=== PATIENT | female | born 1935 | race Caucasian/White ===

== ENCOUNTER 2018-05-04 19:49 | Inpatient (IN) | payer MEDICARE ==
[2018-05-04] MEDS ORDERED: NA CHLORIDE 0.9% 500 ML ONE (20:43)
[2018-05-04] MEDS ORDERED: ONDANSETRON 4 MG/2 ML VIAL ONE ×2 (20:43→22:31)
[2018-05-04 20:53] LABS: Absolute Lymphocytes (CBC) 0.7 K/uL (0.7-4.9); Absolute Monocytes 0.7 K/uL (0.1-1.3); Absolute Neutrophil 12.6 K/uL (1.8-8.0); Basophils % 0.2 % (0-1.3); Eosinophils % 0.4 % (0-4.4); Hematocrit 41.2 % (36.0-45.0); Lymphocytes % 5.2 % (15.3-44.8); MPV 9.2 fL (7.6-11.3); Monocytes % 4.8 % (3.3-12.3); RBC Red Blood Cell Count 5.16 M/uL (3.86-4.86)
[2018-05-04 21:09] LABS: Albumin 4.2 g/dL (3.4-5.0); Bilirubin Direct 0.3 mg/dL (0-0.2); Bilirubin Total 0.4 mg/dL (0.2-1.0); Potassium 5.2 mmol/L (3.5-5.1)
[2018-05-04 21:47] LABS: Blood Morphology Comment NOT SEEN (NOT SEEN); Platelet Estimate ADEQ; Platelets, Giant PRESENT
--- NOTE | 2018-05-04 23:31 | ER ---
Nurse's Notes [facility] Name: Eliana Hayden Age: 82 yrs Sex: Female : 1935 Arrival Date: 05/04/2018 Time: 19:51 Bed 4 Private MD: Mayra Frost C Diagnosis: Dehydration;Infectious ilieitis;Diarrhea, unspecified Presentation: 05/04 20:15 Presenting complaint: Patient states: Diarrhea since 1600 today after eating coleslaw lp1 and cornbread; Patient states hx of "colon problems"; Continued cramping and nausea. Transition of care: patient was not received from another setting of care. Onset of symptoms was May 04, 2018 at 16:00. Risk Assessment: Do you want to hurt yourself or someone else? Patient reports no desire to harm self or others. Initial Sepsis Screen: Does the patient meet any 2 criteria? No. Patient's initial sepsis screen is negative. Does the patient have a suspected source of infection? No. Patient's initial sepsis screen is negative. Care prior to arrival: None. 20:15 Method Of Arrival: Wheelchair lp1 20:15 Acuity: JANINA 3 lp1 Historical: - Allergies: 20:14 Codeine; lp1 20:14 meperidine HCl; lp1 20:14 zolpidem tartrate; lp1 20:14 atorvastatin calcium; lp1 - Home Meds: 05/05 00:44 amlodipine oral [Active]; Atenolol Oral [Active]; diazepam 2 mg Oral tab 1 tab daily hs lp1 [Active]; fenofibrate 160 mg Oral tab once daily [Active]; gabapentin 600 mg Oral tab 4 x a day [Active]; Glimepiride Oral [Active]; hydrocodone-acetaminophen 10-325 mg/15 mL(15 mL) Oral soln every 6 hours for Pain [Active]; levothyroxine 75 mcg tab once daily [Active]; metformin 500 mg Oral tab 1 tab 2 times per day [Active]; Omeprazole Oral [Active]; sertraline 100 mg Oral tab once daily [Active]; temazepam Oral [Active]; calcium carbonate 600 mg (1,500 mg) Oral tab 1200 mg daily [Active]; - PMHx: 05/04 20:14 Depression; Diabetes - NIDDM; High Cholesterol; Hypertension; Hypothyroidism; UTI; lp1 - Immunization history:: Adult Immunizations up to date. - Social history:: Smoking status: Patient/guardian denies using tobacco. - Ebola Screening: : No symptoms or risks identified at this time. - Family history:: not pertinent. - Hospitalizations: : No recent hospitalization is reported. Screenin:16 Abuse screen: Denies threats or abuse. Denies injuries from another. Nutritional lp1 screening: No deficits noted. Tuberculosis screening: No symptoms or risk factors identified. Fall Risk Total Gama Fall Scale indicates High Risk Score (45 or more points). Fall prevention measures have been instituted. Side Rails Up X 2 As available patient and family educated on Fall Prevention Program and Strategies. Assessment: 20:15 General: Appears uncomfortable, Behavior is appropriate for age. Pain: Complains of lp1 pain in abdomen Quality of pain is described as crampy. Neuro: Level of Consciousness is awake, alert, obeys commands. Cardiovascular: Patient's skin is warm and dry. Respiratory: Respiratory effort is even, Respiratory pattern is regular, Breath sounds are clear bilaterally. GI: Abdomen is distended, Bowel sounds present X 4 quads. Reports bloating, diarrhea, nausea. : No signs and/or symptoms were reported regarding the genitourinary system. EENT: No signs and/or symptoms were reported regarding the EENT system. Derm: Skin is fragile, is thin, Skin is dry, Skin is normal. Musculoskeletal: Circulation, motion, and sensation intact. 20:30 Reassessment: CT notified of patient completing oral contrast. lp1 21:30 Reassessment: Patient assisted to bsc; Large loose BM noted. lp1 22:15 Reassessment: Patient returned from CT; Notified of nausea, Provider notified. lp1 23:30 Reassessment: Patient appears in no apparent distress at this time. Patient and/or lp1 family updated on plan of care and expected duration. Pain level reassessed. Patient aware of pending admission. 05/05 00:45 Reassessment: Assisted patient to bathroom at this time. lp1 Vital Signs: 05/04 20:14 BP 121 / 75; Pulse 70; Resp 18; Temp 98.4(O); Pulse Ox 97% on R/A; Weight 72.57 kg; lp1 Height 5 ft. 3 in. (160.02 cm); 21:00 BP 151 / 47; Pulse 72; Resp 18; Pulse Ox 96% on R/A; lp1 22:15 BP 181 / 65; Pulse 74; Resp 16; Pulse Ox 94% on R/A; lp1 23:45 BP 147 / 52; Pulse 63; Resp 18; Pulse Ox 97% ; ea 05/05 00:23 BP 117 / 68; Pulse 66; Resp 18; Temp 97.8(O); Pulse Ox 94% on R/A; Pain 0/10; lp1 05/04 20:14 Body Mass Index 28.34 (72.57 kg, 160.02 cm) lp1 ED Course: 05/04 19:51 Patient arrived in ED. am2 19:51 Mayra Frost MD is Private Physician. am2 19:58 Leonid James MD is Attending Physician. rn 20:10 Shonda Morales RN is Primary Nurse. lp1 20:15 Arm band placed on. lp1 20:16 Triage completed. lp1 20:16 Patient has correct armband on for positive identification. Placed in gown. Bed in low lp1 position. Pulse ox on. NIBP on. 20:25 Oral contrast given. ml 20:50 Inserted saline lock: 22 gauge in left forearm, using aseptic technique. Blood ea collected. 20:51 Missed attempt(s): 22 gauge in right antecubital area. Bleeding controlled, band aid ag4 applied, catheter tip intact. 22:[address] vm2 22:08 CT completed. Patient moved back from CT. vm2 22:16 No provider procedures requiring assistance completed. lp1 22:24 Abdomen In Process Unspecified. EDMS 23:29 Mayra Frost MD is Hospitalizing Provider. rn 05/05 00:24 Patient admitted, IV remains in place. lp1 Administered Medications: 05/04 20:50 Drug: NS 0.9% 500 ml Route: IV; Rate: bolus; Site: left forearm; ea 22:26 Follow up: IV Status: Completed infusion; IV Intake: 500ml lp1 20:50 Drug: Zofran 4 mg Route: IVP; Site: left forearm; ea 21:30 Follow up: Response: Nausea is decreased lp1 22:25 Drug: Zofran 4 mg Route: IVP; Site: left forearm; lp1 23:00 Follow up: Response: Marked relief of symptoms; Nausea is decreased lp1 23:55 Drug: Cipro 400 mg Volume: 200 ml; Route: IVPB; Infused Over: 60 mins; Site: left lp1 forearm; 05/05 00:49 Follow up: IV Status: Infusion continued upon admission lp1 00:22 Drug: Flagyl 500 mg Volume: 100 ml; Route: IVPB; Rate: 200 ml/hr; Infused Over: 30 lp1 mins; Site: left forearm; 00:50 Follow up: IV Status: Infusion continued upon admission lp1 Intake: 05/04 22:26 IV: 500ml; Total: 500ml. lp1 Outcome: 23:30 Decision to Hospitalize by Provider. rn 05/05 00:23 Condition: stable lp1 Instructed on the need for admit. 00:48 Admitted to Med/surg via wheelchair, room 214, with chart, Report called to seamus Brandt RN 01:00 Patient left the ED. lp1 Signatures: Dispatcher [employer] EDFranchesca Odonnell Roman, MD MD rn Pena, Laura, RN RN lp1 Jania Bourne Victoria vm2 Kathy Mayorga RN RN ea Guzman, Adan ag4 Corrections: (The following items were deleted from the chart) 01:20 01:20 Patient left the ED. lp1 lp1
--- NOTE | 2018-05-04 23:31 | EDPHYS ---
Physician Documentation [facility] Name: Eliana Hayden Age: 82 yrs Sex: Female : 1935 Arrival Date: 05/04/2018 Time: 19:51 Bed 4 Private MD: Mayra Frost C ED Physician Leonid James HPI: 05/04 20:45 This 82 yrs old Female presents to ER via Wheelchair with complaints of rn Diarrhea. 20:45 The patient presents to the emergency department with nausea, diarrhea. Onset: The rn symptoms/episode began/occurred today. Possible causes: unknown. The symptoms are aggravated by nothing. The symptoms are alleviated by nothing. Severity of symptoms: At their worst the symptoms were moderate in the emergency department the symptoms are unchanged. The patient has experienced similar episodes in the past. The patient has not recently seen a physician. Reports nausea, diarrhea, began earlier today, can' stop having bowel movements, now having lightheaded and dizzy spells, no abd pain, not sure if because she ate spicy stuff for lunch. . Historical: - Allergies: 20:14 Codeine; lp1 20:14 meperidine HCl; lp1 20:14 zolpidem tartrate; lp1 20:14 atorvastatin calcium; lp1 - Home Meds: 05/05 00:44 amlodipine oral [Active]; Atenolol Oral [Active]; diazepam 2 mg Oral tab 1 tab daily hs lp1 [Active]; fenofibrate 160 mg Oral tab once daily [Active]; gabapentin 600 mg Oral tab 4 x a day [Active]; Glimepiride Oral [Active]; hydrocodone-acetaminophen 10-325 mg/15 mL(15 mL) Oral soln every 6 hours for Pain [Active]; levothyroxine 75 mcg tab once daily [Active]; metformin 500 mg Oral tab 1 tab 2 times per day [Active]; Omeprazole Oral [Active]; sertraline 100 mg Oral tab once daily [Active]; temazepam Oral [Active]; calcium carbonate 600 mg (1,500 mg) Oral tab 1200 mg daily [Active]; - PMHx: 05/04 20:14 Depression; Diabetes - NIDDM; High Cholesterol; Hypertension; Hypothyroidism; UTI; lp1 - Immunization history:: Adult Immunizations up to date. - Social history:: Smoking status: Patient/guardian denies using tobacco. - Ebola Screening: : No symptoms or risks identified at this time. - Family history:: not pertinent. - Hospitalizations: : No recent hospitalization is reported. ROS: 20:45 Constitutional: Negative for fever, chills, and weight loss, Eyes: Negative for injury, rn pain, redness, and discharge, Neck: Negative for injury, pain, and swelling, Cardiovascular: Negative for chest pain, palpitations, and edema, Respiratory: Negative for shortness of breath, cough, wheezing, and pleuritic chest pain, Abdomen/GI: + nausea and diarrhea MS/Extremity: Negative for injury and deformity, Skin: Negative for injury, rash, and discoloration, Neuro: + generalized weakness Exam: 20:45 Constitutional: This is a well developed, well nourished patient who is awake, alert, rn and in no acute distress. Head/Face: Normocephalic, atraumatic. Eyes: Pupils equal round and reactive to light, extra-ocular motions intact. Lids and lashes normal. Conjunctiva and sclera are non-icteric and not injected. Cornea within normal limits. Periorbital areas with no swelling, redness, or edema. ENT: dry MM Cardiovascular: Regular rate and rhythm. No pulse deficits. Respiratory: Lungs have equal breath sounds bilaterally, clear to auscultation. No increased work of breathing, no retractions or nasal flaring. Abdomen/GI: soft, non-tender Skin: Warm, dry MS/ Extremity: Pulses equal, no cyanosis. Neurovascular intact. Full, normal range of motion. Equal circumference. Neuro: Awake and alert, GCS 15, oriented to person, place, time, and situation. Cranial nerves II-XII grossly intact. Motor strength 5/5 in all extremities. Sensory grossly intact. Vital Signs: 20:14 BP 121 / 75; Pulse 70; Resp 18; Temp 98.4(O); Pulse Ox 97% on R/A; Weight 72.57 kg; lp1 Height 5 ft. 3 in. (160.02 cm); 21:00 BP 151 / 47; Pulse 72; Resp 18; Pulse Ox 96% on R/A; lp1 22:15 BP 181 / 65; Pulse 74; Resp 16; Pulse Ox 94% on R/A; lp1 23:45 BP 147 / 52; Pulse 63; Resp 18; Pulse Ox 97% ; ea 05/05 00:23 BP 117 / 68; Pulse 66; Resp 18; Temp 97.8(O); Pulse Ox 94% on R/A; Pain 0/10; lp1 05/04 20:14 Body Mass Index 28.34 (72.57 kg, 160.02 cm) lp1 MDM: 05/04 19:58 Patient medically screened. rn 23:29 Differential diagnosis: gastritis, diverticulitis, viral gastroenteritis, rn gastroenteritis, cholitis. Data reviewed: vital signs, nurses notes, lab test result(s), radiologic studies, CT scan, and as a result, I will admit patient. Counseling: I had a detailed discussion with the patient and/or guardian regarding: the historical points, exam findings, and any diagnostic results supporting the discharge/admit diagnosis, lab results, radiology results, the need for further work-up and treatment in the hospital. Response to treatment: the patient's symptoms have mildly improved after treatment, and as a result, I will admit patient. Admission orders: after a detailed discussion of the patient's condition and case, the admit orders are written by me. 05/04 20:15 Order name: Basic Metabolic Panel; Complete Time: 21:35 rn 05/04 20:15 Order name: CBC with Diff rn 05/04 20:15 Order name: Hepatic Function; Complete Time: 21:35 rn 05/04 20:15 Order name: Lipase; Complete Time: 21:35 05/04 20:15 Order name: Blood Culture Adult (2) rn 05/04 20:15 Order name: Stool Culture rn 05/04 20:16 Order name: Urine Culture rn 05/04 20:16 Order name: Urine Microscopic Only rn 05/04 21:04 Order name: Manual Differential EDMS 05/04 21:45 Order name: Abdomen EDMS 05/04 20:15 Order name: IV Saline Lock; Complete Time: 21:09 rn 05/04 20:15 Order name: Labs collected and sent; Complete Time: 20:59 rn Administered Medications: 20:50 Drug: NS 0.9% 500 ml Route: IV; Rate: bolus; Site: left forearm; ea 22:26 Follow up: IV Status: Completed infusion; IV Intake: 500ml [facility] 20:50 Drug: Zofran 4 mg Route: IVP; Site: left forearm; ea 21:30 Follow up: Response: Nausea is decreased lp1 22:25 Drug: Zofran 4 mg Route: IVP; Site: left forearm; lp1 23:00 Follow up: Response: Marked relief of symptoms; Nausea is decreased lp1 23:55 Drug: Cipro 400 mg Volume: 200 ml; Route: IVPB; Infused Over: 60 mins; Site: left lp1 forearm; 05/05 00:49 Follow up: IV Status: Infusion continued upon admission lp1 00:22 Drug: Flagyl 500 mg Volume: 100 ml; Route: IVPB; Rate: 200 ml/hr; Infused Over: 30 lp1 mins; Site: left forearm; 00:50 Follow up: IV Status: Infusion continued upon admission lp1 Disposition: 05/04/18 23:30 Hospitalization ordered by Mayra Frost for Inpatient Admission. Preliminary diagnosis are Dehydration, Infectious ilieitis, Diarrhea, unspecified. - Bed requested for Telemetry/MedSurg (Inpatient). - Status is Inpatient Admission. lp1 - Condition is Stable. - Problem is new. - Symptoms have improved. UTI on Admission? No Signatures: Dispatcher [employer] EDRI Leonid James MD MD rn Pena, Laura, RN RN [facility] Liseth Cox RN RN Kathy Mayorga RN RN ea Corrections: (The following items were deleted from the chart) 05/04 21:45 20:16 Abdomen Pelvis W Con+CT.RAD.BRZ ordered. EDRI EDRI 23:57 23:30 Hospitalization Ordered by A Margot SIERRA for Inpatient Admission. Preliminary cg diagnosis is Dehydration; Infectious ilieitis; Diarrhea, unspecified. Bed requested for Telemetry/MedSurg (Inpatient). Status is Inpatient Admission. Condition is Stable. Problem is new. Symptoms have improved. UTI on Admission? No. rn 05/05 01:20 05/04 23:57 05/04/2018 23:30 Hospitalization Ordered by A Margot SIERRA for Inpatient lp1 Admission. Preliminary diagnosis is Dehydration; Infectious ilieitis; Diarrhea, unspecified. Bed requested for Telemetry/MedSurg (Inpatient). Status is Inpatient Admission. Condition is Stable. Problem is new. Symptoms have improved. UTI on Admission? No. cg
[2018-05-04] MEDS ORDERED: METRONIDAZOLE 500mg IVPB 500 MG/100 ML BAG IV ONE (23:39)
[2018-05-04] MEDS ORDERED: CIPROFLOXACIN 400mg IV 400 MG/200 ML BAG IV ONE (23:39)
[2018-05-05] MEDS ORDERED: ONDANSETRON 4 MG/2 ML VIAL IV PRN (00:53)
[2018-05-05 01:43] VITALS: BMI 28.0
[2018-05-05] MEDS: NA CHLORIDE 0.9% 1,000 ML IV SCH ×3 (01:55→22:06)
[2018-05-05] MEDS: METRONIDAZOLE 500mg IVPB 500 MG/100 ML BAG IV SCH ×4 (05:13→23:25)
[2018-05-05 06:10] LABS: Urine Appearance CLEAR; Urine Bilirubin NEGATIVE (NEG); Urine Blood 1+ (NEG); Urine Color YELLOW; Urine Glucose NEGATIVE (NEG); Urine Protein NEGATIVE (NEG); Urine Urobilinogen 0.2 mg/dL (0.2-1.0)
[2018-05-05 06:19] LABS: Urine Microscopic Reflex ORDER UMIC
[2018-05-05 06:30] LABS: Urine Bacteria <20 /HPF (<20); Urine Culture Reflex Order REFLEXED; Urine RBC <5 /HPF (NONE SEEN)
[2018-05-05 06:34] LABS: Absolute Lymphocytes (CBC) 1.1 K/uL (0.7-4.9); Absolute Monocytes 0.5 K/uL (0.1-1.3); Absolute Neutrophil 4.9 K/uL (1.8-8.0); Basophils % 0.3 % (0-1.3); Eosinophils % 1.7 % (0-4.4); Hematocrit 36.6 % (36.0-45.0); Lymphocytes % 16.8 % (15.3-44.8); MPV 9.2 fL (7.6-11.3); Monocytes % 7.8 % (3.3-12.3); RBC Red Blood Cell Count 4.56 M/uL (3.86-4.86)
[2018-05-05] MEDS ORDERED: D50W 25 GM/50 ML SYRINGE IV PRN (06:50)
[2018-05-05] MEDS ORDERED: GLUCAGON 1 MG/VIAL IM PRN (06:50)
[2018-05-05] MEDS ORDERED: TRAMADOL HCL 50 MG TAB PO PRN (06:52)
[2018-05-05 06:53] LABS: Potassium 4.5 mmol/L (3.5-5.1)
[2018-05-05] MEDS: INSULIN -REGULAR HUMAN 50 UNIT/0.5 ML ML SQ SCH ×4 (07:30→21:00)
[2018-05-05] MEDS ORDERED: AMLODIPINE BESYLATE PO SCH (09:00)
[2018-05-05] MEDS ORDERED: BENAZEPRIL PO SCH (09:00)
[2018-05-05] MEDS: LEVOTHYROXINE SOD 0.075 MG TAB PO SCH (09:02)
[2018-05-05] MEDS: CIPROFLOXACIN 400mg IV 400 MG/200 ML BAG IV SCH ×2 (09:02→20:51)
[2018-05-05] MEDS: BENAZEPRIL 20 MG TAB PO SCH (09:04)
[2018-05-05] MEDS: AMLODIPINE 5 MG TAB PO SCH (09:04)
[2018-05-05] MEDS: VITAMIN B COMPLEX 1 CAP PO SCH (09:04)
[2018-05-05] MEDS: GABAPENTIN 400 MG CAP PO SCH ×4 (09:04→20:50)
[2018-05-05] MEDS: MAGNESIUM OXIDE 400 MG TAB PO SCH (09:04)
[2018-05-05] MEDS: ATENOLOL 50 MG TAB PO SCH (09:05)
[2018-05-05] MEDS: SITAGLIPTIN PHOS 100 MG TAB PO SCH (09:05)
[2018-05-05] MEDS: ENOXAPARIN 30 MG/0.3 ML SQ SCH (09:05)
[2018-05-05] MEDS: FENOFIBRATE 160 MG TAB PO SCH (09:09)
--- NOTE | 2018-05-05 12:38 | RAD REPORT ---
EXAM DESCRIPTION: CT Abdomen and Pelvis Without Intravenous Contrast CLINICAL HISTORY: 82 years old and is Female; diarrhea TECHNIQUE: Axial computed tomography images of the abdomen and pelvis without intravenous contrast. Sagittal and coronal reformatted images were created and reviewed. EXAM COMPLETED DATE AND APPROX . TIME: 05/04/2018 10:[address] exam was performed using one or more of the following dose re duction techniques: automated exposure control, adjustment of the mA and/or kV according to patient size, and/or use of iterative reconstruction technique. COMPARISON: No relevant prior studies available. FINDINGS: Limitations: None. Dense mitral calcification noted. Lung bases: Unremarkable. No mass. No consolidation. ABDOMEN: Liver: Probable fatty liver. Gallbladder and bile ducts: Cholecystectomy. No ductal dilation. Pancreas: Unremarkable. No ductal dilation. Spleen: Unremarkable. No splenomegaly. Adrenals: Unremarkable. No mass. Kidneys and ureters: There is cortical scarring of both kidneys right greater than left. Fluid d ensity benign-appearing approximately 3 cm diameter cyst noted in the left mid pole. No further evalu ation consider necessary. No stones. No hydronephrosis. Stomach and bowel: There is an approximately 3.3 x 3.0 x 3.8 cm diverticulum in the duodenal loo p. There are a couple of loops of distal ileum which appear mildly thickened and inflamed. The termin al ileum is spared. There is scattered colonic stool without distention. PELVIS: Appendix: No findings to suggest acute appendicitis. Bladder: Unremarkable. No stones. Reproductive: Hysterectomy. ABDOMEN and PELVIS: Intraperitoneal space: Unremarkable. No free air. No significant fluid collection. Bones/joints: There is diffuse degenerative change throughout the spine moderate to severe in de gree with canal stenosis and degenerative grade 1 anterolisthesis at L4-L5. No acute fracture. No dislocation. Soft tissues: Unremarkable. Vasculature: There is atherosclerosis of the aorta and branches. The aorta is tortuous. No aorti c aneurysm. 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 No hemorrhage. Lymph nodes: Unremarkable. No enlarged lymph nodes. IMPRESSION: 1. Suspect mild distal ileitis without involvement of the terminal ileum. Consider inf ectious causes. 2. There is an approximately 9 mm densely calcified splenic artery aneurysm in the splenic hilum. ACR White Paper guidelines (Ahsan, et al. JACR 2013; 10(10):789-94) suggest annual abdominal CT or MR follow-up. No hemorrhage. Electronically signed by: Lara Navarro MD 05/04/2018 10:38 PM CDT Due to temporary technical issues with the PACS/Fluency reporting system, reports are being signed by the in house radiologist as a courtesy to ensure prompt reporting. The interpreting radiologist is f ully responsible for the content of the report.
[2018-05-05] MEDS: SERTRALINE HCL 100 MG TAB PO SCH (20:50)
--- NOTE | 2018-05-06 05:19 | HP ---
Date of Admission: 05/05/2018 Chief Complaint: Abdominal pain, nausea, diarrhea. History Of Present Illness: This is an 82-year-old female patient who was doing fine in her normal usual state of health until around 4 p.m. yesterday. She started to have abdominal pain, describing more like cramps, some nausea with it, and multiple episodes of diarrhea. She started to feel very weak with all these complaints, and came into emergency room. After she was evaluated, she was admitted to the hospital. She denies any blood in stool. No hematemesis. No recent travel. No recent antibiotic use. Medications: List reviewed. Allergies: CODEINE, LIPITOR, DEMEROL, AMBIEN. Review of Systems: GI: As mentioned above. Constitutional: As mentioned above. All other systems reviewed and negative. Past Medical History: Significant for hypertension, hyperlipidemia, NIDDM, hypothyroidism, diverticulosis, osteoarthritis, anemia, depression, gastroesophageal reflux disease, insomnia, diabetic neuropathy. Past Surgical History: Bladder suspension, appendectomy, cataract surgery, cholecystectomy, hysterectomy, and tarsal tunnel surgery. Social History: Negative for smoking or alcohol use. Family History: Significant for coronary artery disease and diabetes. Physical Examination: Vital Signs: Temperature is 97.8, pulse 62, respiratory rate 20, blood pressure 143/63, oxygen saturation 94%, height 5 feet 3 inches, weight 158 pounds. General: Awake, alert, oriented, not in distress. HEENT: Head atraumatic, normocephalic. Conjunctivae nonerythematous. Sclerae white. Mouth, no thrush or edema noted. Ears/Nose, no mass, lesion, discharge noted. Neck: Supple. No JVD, lymph nodes, bruit, thyromegaly noted. Lungs: Bilateral good equal air entry. Clear to auscultation. No rhonchi. No rales. Heart: Normal heart sounds, no murmur or gallop. Abdomen: Soft. No distention. No guarding or rigidity. Very mild diffuse vague tenderness. No rebound tenderness. No hepatosplenomegaly. No bruit. Bowel sounds normoactive. Extremities: No leg edema. No calf tenderness. Skin: No rash, ulcer, cellulitis. Lymphatics: No lymph node enlargement in neck, supraclavicular, infraclavicular region. Neuro: No focal neurological deficit. Chest: Unremarkable. External Genitalia: Deferred. Rectal: Deferred. Laboratory Data: White count yesterday 14.1, hemoglobin 13.3, platelets 218. This morning white count 6.6, hemoglobin 11.9, platelets 195. Yesterday, sodium 138, potassium 5.2, chloride 105, bicarb 25, BUN 36, creatinine 1.61, glucose 175. Liver function tests unremarkable. Lipase 109. Urinalysis; 2+ esterase, 5-10 wbc's. CAT scan of the abdomen and pelvis done in the emergency room shows changes of ileitis. Impression: 1. Acute gastroenteritis, infectious. 2. Volume depletion. 3. Acute kidney injury. 4. Hypertension. 5. Mixed hyperlipidemia. 6. Type 2 diabetes mellitus with diabetic neuropathy. 7. Gastroesophageal reflux disease. 8. Depression. 9. Osteoarthritis, multiple sites. 10. Anemia. 11. Diverticulosis. 12. Hypothyroidism. 13. Urinary tract infection. Plan: Admit the patient to hospital for further evaluation and management of this problem. The patient is appropriate for inpatient, and is expected to spend 2 midnights in the hospital. We will continue her home medications per order. Diabetes will be managed with medication per order as well as insulin sliding-scale. We will go ahead and give DVT prophylaxis using Lovenox. IV fluid and IV antibiotics will be given per order, and we will go ahead and follow up on urine culture. Depending on the urine culture result, we will decide about culture-specific antibiotics. Ambulation was advised. Consult Physical Therapy to help ambulate the patient, and I will see her tomorrow for followup. We will monitor electrolytes, renal function, and blood count. MECCA/MODL Voice ID: [id number] RK
[2018-05-06] MEDS: METRONIDAZOLE 500mg IVPB 500 MG/100 ML BAG IV SCH ×3 (05:34→17:50)
[2018-05-06] MEDS: PANTOPRAZOLE 40MG TABLET PO SCH (05:34)
[2018-05-06] MEDS: LEVOTHYROXINE SOD 0.075 MG TAB PO SCH (05:35)
[2018-05-06] MEDS: NA CHLORIDE 0.9% 1,000 ML IV SCH ×2 (06:53→15:53)
[2018-05-06] MEDS: INSULIN -REGULAR HUMAN 50 UNIT/0.5 ML ML SQ SCH ×4 (07:30→20:40)
[2018-05-06] MEDS: CIPROFLOXACIN 400mg IV 400 MG/200 ML BAG IV SCH ×2 (10:37→20:39)
[2018-05-06] MEDS ORDERED: ALPRAZOLAM 0.25 MG TABLET PO PRN (10:37)
[2018-05-06] MEDS: VITAMIN B COMPLEX 1 CAP PO SCH (10:38)
[2018-05-06] MEDS: FENOFIBRATE 160 MG TAB PO SCH (10:38)
[2018-05-06] MEDS: AMLODIPINE 5 MG TAB PO SCH (10:38)
[2018-05-06] MEDS: GABAPENTIN 400 MG CAP PO SCH ×4 (10:39→20:38)
[2018-05-06] MEDS: BENAZEPRIL 20 MG TAB PO SCH (10:39)
[2018-05-06] MEDS: MAGNESIUM OXIDE 400 MG TAB PO SCH (10:39)
[2018-05-06] MEDS: SITAGLIPTIN PHOS 100 MG TAB PO SCH (10:39)
[2018-05-06] MEDS: ENOXAPARIN 30 MG/0.3 ML SQ SCH (10:40)
[2018-05-06] MEDS: ATENOLOL 50 MG TAB PO SCH (10:45)
--- NOTE | 2018-05-06 21:12 | PN ---
Date of Progress Note: 05/06/2018 Subjective: The patient was seen this morning for followup. No new complaints or problems reported by the patient, except she continues to have some diarrhea, nausea, and some abdominal discomfort. N o new problems reported, but she does not feel any better compared to yesterday, she said. Objective: Vital Signs: Reviewed. HEENT: Examination unremarkable. Lungs: Clear to auscultation. Heart: Sounds normal. Abdomen: Soft. Bowel sounds normal. No guarding, rigidity, no distention. Very vague minimum abdo angela tenderness diffusely scattered over abdomen mostly in lower abdomen today, and overall it is be tter today than yesterday. Extremities: No leg edema. Impression: 1.Acute gastroenteritis. 2.Hypertension. 3.Diabetes mellitus. Plan: We will go ahead and continue her current diet, antibiotics, home medications. Diabetes manag ement and blood pressure medications per order. I will see her tomorrow for followup. Possible disc harge to go home over the weekend depending on her condition. MECCA/MODL Voice ID: [id number] Report ID: [id number]
[2018-05-06] MEDS: SERTRALINE HCL 100 MG TAB PO SCH (22:40)
[2018-05-06] MEDS: MELATONIN 3 MG TABLET PO SCH (22:40)
[2018-05-07] MEDS: METRONIDAZOLE 500mg IVPB 500 MG/100 ML BAG IV SCH ×5 (00:08→23:07)
[2018-05-07] MEDS: LEVOTHYROXINE SOD 0.075 MG TAB PO SCH (05:52)
[2018-05-07] MEDS: NA CHLORIDE 0.9% 1,000 ML IV SCH (05:52)
[2018-05-07] MEDS: PANTOPRAZOLE 40MG TABLET PO SCH (05:52)
[2018-05-07 06:37] LABS: Absolute Lymphocytes (CBC) 1.3 K/uL (0.7-4.9); Absolute Monocytes 0.5 K/uL (0.1-1.3); Absolute Neutrophil 3.6 K/uL (1.8-8.0); Basophils % 0.4 % (0-1.3); Eosinophils % 1.9 % (0-4.4); Hematocrit 36.2 % (36.0-45.0); Lymphocytes % 22.9 % (15.3-44.8); MPV 8.8 fL (7.6-11.3); Monocytes % 9.7 % (3.3-12.3); RBC Red Blood Cell Count 4.55 M/uL (3.86-4.86)
[2018-05-07 06:42] LABS: Magnesium 1.6 mg/dL (1.8-2.4); Potassium 4.2 mmol/L (3.5-5.1)
[2018-05-07] MEDS: INSULIN -REGULAR HUMAN 50 UNIT/0.5 ML ML SQ SCH ×4 (07:30→21:00)
[2018-05-07] MEDS: MAGNESIUM OXIDE 400 MG TAB PO SCH (09:18)
[2018-05-07] MEDS: ENOXAPARIN 30 MG/0.3 ML SQ SCH (09:18)
[2018-05-07] MEDS: GABAPENTIN 400 MG CAP PO SCH ×4 (09:18→21:34)
[2018-05-07] MEDS: CIPROFLOXACIN 400mg IV 400 MG/200 ML BAG IV SCH ×2 (09:18→21:34)
[2018-05-07] MEDS: SITAGLIPTIN PHOS 100 MG TAB PO SCH (09:19)
[2018-05-07] MEDS: VITAMIN B COMPLEX 1 CAP PO SCH (09:19)
[2018-05-07] MEDS: AMLODIPINE 5 MG TAB PO SCH (09:19)
[2018-05-07] MEDS: ATENOLOL 50 MG TAB PO SCH (09:19)
[2018-05-07] MEDS: FENOFIBRATE 160 MG TAB PO SCH (09:19)
[2018-05-07] MEDS: BENAZEPRIL 20 MG TAB PO SCH (09:34)
--- NOTE | 2018-05-07 09:40 | EKG ---
Test Date: 2018-05-06 Test Time: 19:41:11 Director Of Social Services: RT MEASUREMENT RESULTS: Intervals: Rate: 61 LA: QRSD: 150 QT: 482 QTc: 485 [place]: P: LA: QRS: -46 T: 76 INTERPRETIVE STATEMENTS: Atrial fibrillation Left axis deviation Left bundle branch block Abnormal ECG Compared to ECG 04/24/2015 08:09:43 Left-axis deviation now present Left bundle-branch block now present Sinus rhythm no longer present Electronically Signed On 05-07-18 09:39:54 CDT by Manuel Ceja
[2018-05-07] MEDS ORDERED: FUROSEMIDE 20 MG/ 2ML VIAL IV ONE (12:39)
[2018-05-07] MEDS ORDERED: MAGNESIUM SULFATE 1 gm IVPB 1 GM/100 ML BAG IV ONE (14:00)
--- NOTE | 2018-05-07 17:40 | PN ---
Date of Progress Note: 05/07/2018 Subjective: The patient was seen this morning for followup. She still continues to have diarrhea. Denies any vomiting. No abdominal pain. Objective: Vital signs: Reviewed. HEENT: Unremarkable. Lungs: Bilateral good equal air entry. Presence of rales noted in lower half of both lung bowen. Heart: Sounds normal. Abdomen: Soft. Bowel sounds normal. No guarding, rigidity, tenderness, or distention. Extremities: Bilateral grade 1 pedal edema. Laboratory Data: White count 5.5, hemoglobin 11.7, platelets 195. Sodium 142, potassium 4.2, chlori de 112, bicarb 24, BUN 18, creatinine 0.96, glucose 136, magnesium 1.6. EKG from last night had show n atrial fibrillation. Currently, patient is in sinus rhythm when I saw her. Impression: 1.Acute gastroenteritis. 2.Paroxysmal atrial fibrillation. 3.Hypertension. 4.Diabetes mellitus. 5.Hypomagnesemia. 6.Rule out congestive heart failure. Plan: We will go ahead and order stool for C. diff. Repeat EKG was ordered. When I saw her, she wa s in sinus rhythm. The patient has gone into anywhere from first-degree to second-degree AV block. We will consult Cardiology and give 1 dose of Lasix 20 mg IV. Increase the dose of Lovenox from prop hylactic to therapeutic dose. Consult Cardiology and continue current antibiotics. Details and plan of treatment discussed with the patient and her son, who was at bedside. Echocardiogram was ordered. MECCA/MODL Voice ID: [id number] Report ID: [id number]
--- NOTE | 2018-05-07 18:25 | CON ---
Reason For Consult: Second-degree AV block. History Of Present Illness: Ms. Hayden has been in the hospital for several days and on telemetry t he whole time, and she has been in the hospital for infection somewhere in the abdomen. I think it i s suspected that she has diverticulitis. She has not had any symptoms of arrhythmia. No dizziness, palpitations, heart racing, fainting, lightheadedness. Her first vital signs are from the , this the , and she has had 2 spells where she has dropped some beats. Her EKG shows sinus rhythm wit h a very long CO interval. It is in the range of 300 or 400 milliseconds, and there is a left bundle -branch block. So, I am sure anytime her heart rate goes up, she will block down. We have not seen atrial fibrillation or any pauses more than 3-1/2 seconds and no symptoms. The patient's medications here in the hospital have been alprazolam, amlodipine, atenolol, benazepril, Cipro, Lovenox, fenofib rate, metronidazole, furosemide, gabapentin, glucagon, insulin, levothyroxine, magnesium oxide, magne sium sulfate, melatonin, Zofran, Protonix, sitagliptin, sertraline, tramadol, vitamin B complex. She is allergic to codeine, atorvastatin, meperidine, zolpidem. Physical Examination: General: 5 feet 3 inches, 158 pounds. HEENT: Normal. Lungs: Clear. Heart: Within normal limits. Abdomen: Soft. Extremities: Mild edema. Recommendation: I think the patient should stop her atenolol. We should get a TSH on her. If any o f the problems get worse, we will send her for an emergency pacemaker, but I think when she is over h er abdominal infection, it would be good for her to get an electively placed pacemaker. 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 MARGOTH/LOGAN Voice ID: [id number] Report ID: [id number]
[2018-05-07] MEDS: ENOXAPARIN 80 MG/0.8 ML SQ SCH (21:34)
[2018-05-07] MEDS: SERTRALINE HCL 100 MG TAB PO SCH (21:34)
[2018-05-07] MEDS: MELATONIN 3 MG TABLET PO SCH (23:04)
[2018-05-08] MEDS: LEVOTHYROXINE SOD 0.075 MG TAB PO SCH (06:09)
[2018-05-08] MEDS: PANTOPRAZOLE 40MG TABLET PO SCH (06:09)
[2018-05-08] MEDS: METRONIDAZOLE 500mg IVPB 500 MG/100 ML BAG IV SCH ×4 (06:13→23:11)
[2018-05-08] MEDS: INSULIN -REGULAR HUMAN 50 UNIT/0.5 ML ML SQ SCH ×4 (07:30→20:57)
[2018-05-08] MEDS: CIPROFLOXACIN 400mg IV 400 MG/200 ML BAG IV SCH ×2 (09:33→20:55)
[2018-05-08] MEDS: ENOXAPARIN 80 MG/0.8 ML SQ SCH ×2 (09:34→20:55)
[2018-05-08] MEDS: BENAZEPRIL 20 MG TAB PO SCH (09:35)
[2018-05-08] MEDS: FENOFIBRATE 160 MG TAB PO SCH (09:36)
[2018-05-08] MEDS: MAGNESIUM OXIDE 400 MG TAB PO SCH (09:36)
[2018-05-08] MEDS: VITAMIN B COMPLEX 1 CAP PO SCH (09:36)
[2018-05-08] MEDS: GABAPENTIN 400 MG CAP PO SCH ×4 (09:36→20:55)
[2018-05-08] MEDS: SITAGLIPTIN PHOS 100 MG TAB PO SCH (09:36)
[2018-05-08] MEDS: AMLODIPINE 5 MG TAB PO SCH (09:36)
--- NOTE | 2018-05-08 15:48 | PN ---
Mrs. Hayden had a brief spell of AFib. The heart rate was not particularly slow, but when in sinus rhythm her p.r.n. interval is very prolonged, and she has the occasional dropped beat. So, I think s he needs to be fully anticoagulated and avoid beta-blockers. When her abdominal problem is better, s he should have a pacemaker as she has trifascicular block with some dropped beats. MARGOTH/LOGAN Voice ID: [id number] Report ID: [id number]
--- NOTE | 2018-05-08 20:21 | EKG ---
Test Date: 2018-05-07 Test Time: 13:18:40 [employer] Underwriter: MYRA MEASUREMENT RESULTS: Intervals: Rate: 62 IL: 400 QRSD: 134 QT: 486 QTc: 493 [place]: P: IL: 400 QRS: -42 T: 82 INTERPRETIVE STATEMENTS: Sinus rhythm with first degree AV block Left axis deviation Left bundle branch block Abnormal ECG Compared to ECG 05/06/2018 19:41: Atrial fibrillation no longer present Electronically Signed On 05-08-18 20:21:23 CDT by Manuel Ceja
[2018-05-08] MEDS: SERTRALINE HCL 100 MG TAB PO SCH (20:56)
[2018-05-08] MEDS: ACETAMINOPHEN 500 MG TAB PO PRN (21:17)
[2018-05-08] MEDS: MELATONIN 3 MG TABLET PO SCH (23:06)
[2018-05-09] MEDS: METRONIDAZOLE 500mg IVPB 500 MG/100 ML BAG IV SCH ×4 (05:44→23:57)
[2018-05-09] MEDS: PANTOPRAZOLE 40MG TABLET PO SCH (05:44)
[2018-05-09] MEDS: LEVOTHYROXINE SOD 0.075 MG TAB PO SCH (05:46)
[2018-05-09 06:27] LABS: Absolute Monocytes 0.7 K/uL (0.1-1.3); Absolute Neutrophil 4.2 K/uL (1.8-8.0); Basophils % 0.9 % (0-1.3); Eosinophils % 1.4 % (0-4.4); Hematocrit 32.7 % (36.0-45.0); MPV 9.5 fL (7.6-11.3); Monocytes % 11.7 % (3.3-12.3)
[2018-05-09 06:36] LABS: Magnesium 1.6 mg/dL (1.8-2.4); Potassium 4.1 mmol/L (3.5-5.1)
[2018-05-09] MEDS: INSULIN -REGULAR HUMAN 50 UNIT/0.5 ML ML SQ SCH ×4 (07:30→21:47)
[2018-05-09] MEDS ORDERED: MAGNESIUM SULFATE 1 gm IVPB 1 GM/100 ML BAG IV ONE (09:00)
[2018-05-09] MEDS: GABAPENTIN 400 MG CAP PO SCH ×4 (09:46→21:47)
[2018-05-09] MEDS: VITAMIN B COMPLEX 1 CAP PO SCH (09:46)
[2018-05-09] MEDS: PARoxetine HCl 10 MG TAB PO SCH (09:46)
[2018-05-09] MEDS: MAGNESIUM OXIDE 400 MG TAB PO SCH (09:47)
[2018-05-09] MEDS: AMLODIPINE 5 MG TAB PO SCH (09:47)
[2018-05-09] MEDS: BENAZEPRIL 20 MG TAB PO SCH (09:47)
[2018-05-09] MEDS: APIXABAN 5 MG TABLET PO SCH ×2 (09:47→21:47)
[2018-05-09] MEDS: SITAGLIPTIN PHOS 100 MG TAB PO SCH (09:47)
[2018-05-09] MEDS: CIPROFLOXACIN 400mg IV 400 MG/200 ML BAG IV SCH ×2 (09:48→21:47)
[2018-05-09] MEDS: FENOFIBRATE 160 MG TAB PO SCH (09:48)
--- NOTE | 2018-05-09 11:56 | ECHO ---
HEIGHT: 5 ft 3 in WEIGHT: 158 lb 11.2 oz DATE OF STUDY: 05/09/[address]: Gonzalo Frost MD 2-DIMENSIONAL: YES M.MODE: YES DOPPLER: YES COLOR FLOW: YES TDS: NO PORTABLE: NO DEFINITY: NO BUBBLE STUDY: NO DIAGNOSIS: CONGESTIVE HEART FAILURE CARDIAC HISTORY: CATHERIZATION: NO SURGERY: NO PROSTHETIC VALVE: NO PACEMAKER: NO MEASUREMENTS (cm) DIASTOLIC (NORMALS) SYSTOLIC (NORMALS) IVSd 1.0 (0.6-1.2) LA Diam 3.9 (1.9-4.0) LVEF 59% LVIDd 3.2 (3.5-5.7) LVIDs 2.2 (2.0-3.5) %FS 30% LVPWd 1.0 (0.6-1.2) Ao Diam 2.7 (2.0-3.7) 2 DIMENSIONAL ASSESSMENT: RIGHT ATRIUM: NORMAL LEFT ATRIUM: NORMAL RIGHT VENTRICLE: NORMAL LEFT VENTRICLE: NORMAL TRICUSPID VALVE: NORMAL MITRAL VALVE: MITRAL ANNULAR CALCIFICATION PULMONIC VALVE: NORMAL AORTIC VALVE: NORMAL PERICARDIAL EFFUSION: NONE AORTIC ROOT: NORMAL LEFT VENTRICULAR WALL MOTION: DOPPLER/COLOR FLOW: MILD MITRAL AND TRICUSPID REGURGITATION. ESTIMATED RIGHT VENTRICULAR SYSTOLIC PRESSURE 45 mmHg. MILD PULMONARY HYPERTENSION. COMMENTS: NORMAL LEFT VENTRICULAR EJECTION FRACTION. MITRAL ANNULAR CALCIFICATION. MILD MITRAL AND TRICUSPID REGURGITATION. MILD PULMONARY HYPERTENSION. TECHNOLOGIST: Rosa Maria AYERS
[2018-05-09] MEDS: LIDOCAINE 5% PATCH TOP SCH (12:07)
--- NOTE | 2018-05-09 12:37 | RAD REPORT ---
EXAM DESCRIPTION: RAD - Shoulder Left 2 View - 05/09/2018 12:28 pm CLINICAL HISTORY: L shoulder pain COMPARISON: Shoulder Left 2 View dated 06/05/2011 FINDINGS: Advanced AC joint and glenohumeral joint arthritic changes are present. High-riding dhiraj l head is seen with subacromial outlet narrowing, most compatible with underlying rotator cuff tear. This can be confirmed with MR imaging if clinically desired. No acute fracture or dislocation evident .
[2018-05-09] MEDS: CHOLESTYRAMINE/ASP 4 GM/PKT PO SCH (17:31)
--- NOTE | 2018-05-09 21:02 | PN ---
Date of Progress Note: 05/09/2018 Subjective: The patient was seen this morning for followup. No new complaints or problems reported by her except the patient reports that her diarrhea is not any better. Reports that yesterday she villalobos d diarrhea about 7 times and was very loose stool as she reports. Denies any abdominal pain. No lee sea, no vomiting. Today, she was also complaining of lot of pain in her left shoulder. Denies any f all or injury. Objective: Vital Signs: Reviewed. HEENT: Unremarkable. Lungs: Clear to auscultation. Heart: Sounds normal. Abdomen: Soft. Bowel sounds normal. No guarding, rigidity, tenderness, or distention. Extremities: No leg edema. Laboratory Data: White count 6, hemoglobin 10.9, platelets 180. Sodium 140, potassium 4.1, chloride 107, bicarb 26, BUN 16, creatinine 1.05, glucose 189, magnesium 1.6. Impression: 1.Acute gastroenteritis. 2.Paroxysmal atrial fibrillation. 3.Hypomagnesemia. 4.Diabetes mellitus. 5.Hypertension. 6.Cardiac arrhythmia. Plan: The patient will start Eliquis in place of Lovenox. Continue current antibiotics. Stool C. d iff and stool culture negative. I will start her on cholestyramine order. We will get a left should er x-ray. Start lidocaine patch to left shoulder daily. I did talk to patient's son, who came to of [facility] to discuss details and all the details were discussed with him including rawhide trimmer's recommen dation of getting a cardiac pacemaker placed once she recovers from this acute gastroenteritis proble m. Risk of bleeding explained to son related to anticoagulant medications and risks and benefit discussed with him. Fall precautions to be followed to avoid any head injury. I will see her tomorr ow for followup. MECCA/MODL Voice ID: [id number] Report ID: [id number]
[2018-05-09] MEDS: MELATONIN 3 MG TABLET PO SCH (22:56)
[2018-05-10] MEDS: LEVOTHYROXINE SOD 0.075 MG TAB PO SCH (06:12)
[2018-05-10] MEDS: METRONIDAZOLE 500mg IVPB 500 MG/100 ML BAG IV SCH ×4 (06:12→23:14)
[2018-05-10] MEDS: PANTOPRAZOLE 40MG TABLET PO SCH (06:12)
[2018-05-10] MEDS: GABAPENTIN 400 MG CAP PO SCH ×4 (08:40→21:04)
[2018-05-10] MEDS: FENOFIBRATE 160 MG TAB PO SCH (08:40)
[2018-05-10] MEDS: APIXABAN 5 MG TABLET PO SCH ×2 (08:40→21:04)
[2018-05-10] MEDS: PARoxetine HCl 10 MG TAB PO SCH (08:40)
[2018-05-10] MEDS: SITAGLIPTIN PHOS 100 MG TAB PO SCH (08:40)
[2018-05-10] MEDS: AMLODIPINE 5 MG TAB PO SCH (08:40)
[2018-05-10] MEDS: LIDOCAINE 5% PATCH TOP SCH (08:41)
[2018-05-10] MEDS: CIPROFLOXACIN 400mg IV 400 MG/200 ML BAG IV SCH ×2 (08:41→21:04)
[2018-05-10] MEDS: BENAZEPRIL 20 MG TAB PO SCH (08:41)
[2018-05-10] MEDS: CHOLESTYRAMINE/ASP 4 GM/PKT PO SCH ×2 (08:41→16:12)
[2018-05-10] MEDS: MAGNESIUM OXIDE 400 MG TAB PO SCH (08:41)
[2018-05-10] MEDS: INSULIN -REGULAR HUMAN 50 UNIT/0.5 ML ML SQ SCH ×4 (08:42→21:04)
[2018-05-10] MEDS: VITAMIN B COMPLEX 1 CAP PO SCH (08:46)
[2018-05-10] MEDS: ACETAMINOPHEN 500 MG TAB PO PRN (21:17)
[2018-05-10] MEDS: MELATONIN 3 MG TABLET PO SCH (22:25)
--- NOTE | 2018-05-11 01:24 | PN ---
Date of Progress Note: 05/10/2018 Subjective: The patient was seen this morning for followup. No new complaints or problems reported by the patient. She was sleeping, easily arousable, not in any distress. Her diarrhea has improved significantly after one dose of cholestyramine, which was given yesterday evening. Her left shoulder pain is much better with lidocaine patch. Objective: Vital Signs: Reviewed. HEENT: Unremarkable. Lungs: Clear to auscultation. Heart: Sounds normal. Abdomen: Soft. Bowel sounds normal. No guarding, rigidity, tenderness, distention. Extremities: No leg edema. Laboratory Data: Reviewed. X-ray of the left shoulder shows significant degenerative changes and ev idence of rotator cuff tear of the left shoulder. Impression: 1.Acute gastroenteritis. 2.Paroxysmal atrial fibrillation. 3.Osteoarthritis, multiple sites. 4.Left shoulder rotator cuff tear. Plan: We will continue current medications. Ambulation was encouraged. I will see her tomorrow for followup and possible discharge to go home tomorrow depending on her condition. MECCA/LOGAN Voice ID: [id number] Report ID: [id number]
[2018-05-11] MEDS: ACETAMINOPHEN 500 MG TAB PO PRN (03:30)
[2018-05-11 06:07] LABS: Absolute Lymphocytes (CBC) 1.1 K/uL (0.7-4.9); Absolute Monocytes 0.8 K/uL (0.1-1.3); Absolute Neutrophil 5.8 K/uL (1.8-8.0); Basophils % 0.3 % (0-1.3); Eosinophils % 1.6 % (0-4.4); Hematocrit 35.4 % (36.0-45.0); MPV 8.9 fL (7.6-11.3); Monocytes % 9.7 % (3.3-12.3); RBC Red Blood Cell Count 4.54 M/uL (3.86-4.86)
[2018-05-11 06:14] LABS: Magnesium 1.7 mg/dL (1.8-2.4); Potassium 4.1 mmol/L (3.5-5.1)
[2018-05-11] MEDS: PANTOPRAZOLE 40MG TABLET PO SCH (06:17)
[2018-05-11] MEDS: LEVOTHYROXINE SOD 0.075 MG TAB PO SCH (06:17)
[2018-05-11] MEDS: METRONIDAZOLE 500mg IVPB 500 MG/100 ML BAG IV SCH ×2 (06:18→12:00)
[2018-05-11] MEDS: LIDOCAINE 5% PATCH TOP SCH (06:26)
[2018-05-11] MEDS ORDERED: MAGNESIUM SULFATE 1 gm IVPB 1 GM/100 ML BAG IV ONE (08:00)
[2018-05-11 08:35] VITALS: O2SAT 96
[2018-05-11] MEDS: CIPROFLOXACIN 400mg IV 400 MG/200 ML BAG IV SCH (09:12)
[2018-05-11] MEDS: CHOLESTYRAMINE/ASP 4 GM/PKT PO SCH (09:13)
[2018-05-11] MEDS: INSULIN -REGULAR HUMAN 50 UNIT/0.5 ML ML SQ SCH ×2 (09:13→12:07)
[2018-05-11] MEDS: BENAZEPRIL 20 MG TAB PO SCH (09:14)
[2018-05-11] MEDS: PARoxetine HCl 10 MG TAB PO SCH (09:14)
[2018-05-11] MEDS: FENOFIBRATE 160 MG TAB PO SCH (09:14)
[2018-05-11] MEDS: MAGNESIUM OXIDE 400 MG TAB PO SCH (09:14)
[2018-05-11] MEDS: VITAMIN B COMPLEX 1 CAP PO SCH (09:14)
[2018-05-11] MEDS: SITAGLIPTIN PHOS 100 MG TAB PO SCH (09:14)
[2018-05-11] MEDS: APIXABAN 5 MG TABLET PO SCH (09:14)
[2018-05-11] MEDS: GABAPENTIN 400 MG CAP PO SCH ×2 (09:14→12:08)
[2018-05-11] MEDS: AMLODIPINE 5 MG TAB PO SCH (09:15)
[2018-05-11 09:16] VITALS: BP 129/61
[2018-05-11 10:32] VITALS: TEMP 97.3
--- NOTE | 2018-05-12 04:34 | DS ---
Date of Discharge: 05/11/2018 Physical Examination: HEENT: Unremarkable. Lungs: Clear to auscultation. Heart: Sounds normal. Abdomen: Soft. Bowel sounds normal. No guarding, rigidity, tenderness, or distention. Extremities: No leg edema. Laboratory Data: Labs done during this hospitalization upon admission: Initial white count 14.1, hem oglobin 13.3, platelets 218. White count today is 7.8, hemoglobin 11.9, platelets 201. Last binder stripper hand ry today: Sodium 138, potassium 4.1, chloride 104, bicarb 28, BUN 19, creatinine 1.04, glucose 241, magnesium 1.7. Hospital Course: An 82-year-old female patient admitted to the hospital with abdominal pain, nausea, and diarrhea. Please see dictated H and P for more information. She came into emergency room. Rou amaya labs and CAT scan of the abdomen were done in the ER. CAT scan showed changes of ileitis. The david quinonez had diffuse mild tenderness all over abdomen when she first came in. She was given IV fluid a nd IV antibiotics started, which was Cipro and metronidazole. With IV antibiotics, her tenderness re solved. Diarrhea problem continued, so as of day before yesterday, we started her on cholestyramine 2 times a day and that actually has helped her diarrhea. She still has some diarrhea, but overall be tter than before. No vomiting. She is tolerating diet very well and has started to ambulate well. She had volume depletion problem along with acute kidney injury and this was corrected as well with I V fluid hydration. Her initial creatinine when she came in was 1.61, which is normalized now. The david quinonez had episode of paroxysmal atrial fibrillation during this hospitalization and had some AV bloc k. Cardiology consultation was obtained from Dr. Ceaj, and the patient was started on Lovenox inje ction. Dr. Ceja recommended us to continue anticoagulation therapy for her intermittent atrial fib rillation and also recommended that once the patient recovers from this gastroenteritis problem, the patient should have a pacemaker placement and suggested to discontinue her atenolol. The patient was started on Eliquis about 2 days ago and Lovenox was discontinued. There was a possible interaction between Eliquis and sertraline and paroxetine, type of antidepressant medication. So, wean off sertr jelly and start the patient on bupropion. The patient was discharged to go home in stable condition today. Her stool for C. diff and culture came back negative. Her persistent diarrhea, even though i t is better, it could be due to possible side effect from antibiotic, and she was made aware of that. If the diarrhea continues on outpatient basis, she will have to follow up with control tower radio operator. She was complaining of left shoulder pain. X-ray of the left shoulder showed changes of arthritis a nd rotator cuff tear, and she responded well to lidocaine patch and she was advised to continue to us e it on outpatient basis. Final Diagnoses: 1.Acute gastroenteritis, infectious. 2.Volume depletion. 3.Acute kidney injury. 4.Paroxysmal atrial fibrillation. 5.Atrioventricular block. 6.Hypertension. 7.Mixed hyperlipidemia. 8.Type 2 diabetes mellitus with diabetic neuropathy. 9.Gastroesophageal reflux disease. 10.Depression. 11.Osteoarthritis, multiple sites. 12.Anemia. 13.Diverticulosis. 14.Hypothyroidism. 15.Urinary tract infection. Discharge Medications And Instructions: 1.Continue prior home medications except stop atenolol. 2.Reduce sertraline 100 mg. The patient to take half tablet daily for 1 week then stop, and then st art bupropion 100 mg p.o. daily. 3.Take Eliquis 5 mg twice a day. 4.Take precautions to avoid any fall or head injury. 5.Take antibiotics Cipro 500 mg twice a day for 5 days, metronidazole 500 mg 3 times a day for 5 day s. 6.Follow up at my office in [address] Ceja in 1 to 2 weeks. 7.Apply [id number] Lidoderm patch to left shoulder every morning, take it off at bedtime. 8.Cholestyramine 1 pack 2 times a day with meal. MECCA/MODL Voice ID: [id number] Report ID: [id number]
== END 2018-05-11 12:44 | disposition home or self-care (01) | DRG 392 ==
LOC: ER 19:49 → ERHOLD 23:42 → 2ND 05-05 00:04 → ERHOLD 05-05 00:06 → 2ND 05-05 00:50
PROVIDERS: ADMIT Internal Medicine; ATTEND Internal Medicine
DX: A09 Infectious gastroenteritis and colitis, unspecified (principal); N17.9 Acute kidney failure, unspecified; N39.0 Urinary tract infection, site not specified; E86.9 Volume depletion, unspecified; I48.0 Paroxysmal atrial fibrillation; I44.30 Unspecified atrioventricular block; I10 Essential (primary) hypertension; E78.2 Mixed hyperlipidemia; E11.40 Type 2 diabetes mellitus with diabetic neuropathy, unspecified; K21.9 Gastro-esophageal reflux disease without esophagitis; F32.9 Major depressive disorder, single episode, unspecified; M19.90 Unspecified osteoarthritis, unspecified site; D64.9 Anemia, unspecified; K57.90 Diverticulosis of intestine, part unspecified, without perforation or abscess without bleeding; E03.9 Hypothyroidism, unspecified; M75.102 Unspecified rotator cuff tear or rupture of left shoulder, not specified as traumatic; E83.42 Hypomagnesemia
CPT/HCPCS: 36415; 74176; 80048; 80076; 81003; 81015; 82962; 83690; 83735; 84443; 85025; 87040; 87045; 87046; 87086; 87088; 87493; 93005; 93306; 96361; 96365; 96375; 97161; 99285; J0744; J1650; J1940; J2405; J3475; J7030

== ENCOUNTER 2019-08-01 10:57 | Inpatient (IN) | payer MEDICARE ==
[2019-08-01 12:39] LABS: Absolute Lymphocytes (CBC) 1.5 K/uL (0.7-4.9); Basophils % 0.4 % (0-1.3); Hematocrit 39.8 % (36.0-45.0); Lymphocytes % 16.5 % (15.3-44.8); MPV 9.1 fL (7.6-11.3); RBC Red Blood Cell Count 4.97 M/uL (3.86-4.86)
[2019-08-01] MEDS ORDERED: NA CHLORIDE 0.9% 500 ML ONE (12:39)
--- NOTE | 2019-08-01 12:50 | RAD REPORT ---
EXAM DESCRIPTION: RAD - Chest Single View - 08/01/2019 12:36 pm CLINICAL HISTORY: CHEST PAIN Chest pain. COMPARISON: Chest Pa And Lat (2 Views) dated 10/28/2017; CHEST SINGLE VIEW dated 04/24/2015; CHEST PA A ND LAT 2 VIEW dated 11/28/2014; CHEST SINGLE VIEW dated 10/10/2014 FINDINGS: Portable technique limits examination quality. The lungs are grossly clear. The heart is normal in size. No displaced fractures.Dual lead pacer delia ce is present. IMPRESSION: No acute intrathoracic process suspected.
[2019-08-01 13:06] LABS: Albumin 3.7 g/dL (3.4-5.0); Bilirubin Direct 0.2 mg/dL (0-0.2); Bilirubin Total 0.5 mg/dL (0.2-1.0); Magnesium 2.1 mg/dL (1.8-2.4); Potassium 4.5 mmol/L (3.5-5.1); Protein, Total 8.2 g/dL (6.4-8.2); Troponin (Emerg Dept Use Only) 0.4 ng/mL (0.0-0.045)
--- OUTSIDE RECORDS SUMMARY | 2019-08-01 13:42 | XMS REPORT | Clinical Summary ---
:1935 Author Organization [facility] Address [address] [place] [id number] Care Team Providers Name Role Phone Mayela Reina MD Primary Care Provider Allergies Active Allergy Reactions Severity Noted Date Comments Codeine Anxiety High 07/20/2018 "Made her feel very nervous and hyper- active and coul d not sleep after taking this medication " Also gave her diarrhea. Meperidine Anxiety High 07/20/2018 "Made her feel very nervous and hyper- active and coul d not sleep after taking this medication " Also gave her diarrhea. Medications No known medications Active Problems Not on file Social History Tobacco Use Types Packs/Day Years Used Date Never Assessed Sex Assigned at Date Recorded Not on file Job Start Date Occupation Industry Not on file Not on file Not on file Travel History Travel Start Travel End No recent travel history available. Last Filed Vital Signs Not on file Plan of Treatment Health Maintenance Due Date Last Done Comments SHINGLES VACCINES (#1) 10/02/1983 65+ PNEUMOCOCCAL VACCINE (1 of 2 - PCV13) 1998 INFLUENZA VACCINE 09/16/2019 Results Not on fileafter 07/31/2018 Advance Directives For more information, please contact: [phone] Type Date Recorded Patient Tax Processor Explanati on Advance Directives, Living Will and Medical Power of College Or University Faculty Member
--- OUTSIDE RECORDS SUMMARY | 2019-08-01 13:42 | XMS REPORT | Continuity of Care Document ---
:1935 Author Organization [facility] t Address [facility] [address] Contre[address] [place] [address] Care Team Providers Name Role Phone Nuno SIERRA Primary Care Physician Problems This patient has no known problems. Allergies, Adverse Reactions, Alerts Allergy Allergy Status Severity Reaction(s) Onset Inactive Treating Comm ents Source Name Type Date Date Clinician Codeine Propensi Active Anxiety "Made her Selvin eddyn ty to 6-05 feel very Methodi adverse 00:00: nervous st reaction 00 and s to hyper- drug active and could not sleep after taking this medicatio n" Also gave her diarrhea. Meperidi Propensi Active Anxiety "Made her Josh conde ne ty to 6-05 feel very Methodi adverse 00:00: nervous st reaction 00 and s to hyper- drug active and could not sleep after taking this medicatio n" Also gave her diarrhea. Social History Social Habit Start Date Stop Date Quantity Comments Source Sex Assigned At [facility] Medications This patient has no known medications. Procedures This patient has no known procedures. Plan of Care Planned Activity Planned Date Details Comments Source Future Scheduled 2019-09-16 INFLUENZA VACCINE [place] [facility] 00:00:00 [code = INFLUENZA VACCINE] Future Scheduled 1998 65+ PNEUMOCOCCAL [place] [facility] 00:00:00 VACCINE (1 of 2 - PCV13) [code = 65+ PNEUMOCOCCAL VACCINE (1 of 2 - PCV13)] Future Scheduled 1983-10-02 SHINGLES VACCINES (#1) [facility] 00:00:00 [code = SHINGLES VACCINES (#1)] Encounters Start End Encounter Admission Attending Care Care Encounter Source Date/Time Date/Time Type Type Clinicians Facility Department ID 2019-05-01 2019-05-01 Outpatient [facility] [address] 06:06:00 06:06:00 Results This patient has no known results.
--- NOTE | 2019-08-01 14:01 | ER ---
Nurse's Notes [facility] Name: Eliana Hayden Age: 83 yrs Sex: Female : 1935 Arrival Date: 08/01/2019 Time: 10:58 Bed 26 Private MD: Mayra Frost C Diagnosis: Chest pain, unspecified;Angina pectoris;Essential (primary) hypertension;Type 2 diabetes mellitus;Dyspnea;Unspecified kidney failure-insufficency, worsening Presentation: 07/31 11:14 Chief complaint: EMS states: Intermittent substernal chest pain x 2 weeks, pain became hb constant and radiates to left side of neck and shoulder yesterday. Also reports mild SOB, worse at night. Coronavirus screen: Proceed with normal triage. Ebola Screen: No symptoms or risks identified at this time. Initial Sepsis Screen: Does the patient meet any 2 criteria? No. Patient's initial sepsis screen is negative. Risk Assessment: Do you want to hurt yourself or someone else? Patient reports no desire to harm self or others. Onset of symptoms was July 18, 2019. 11:14 Method Of Arrival: Wheelchair hb 11:14 Acuity: JANINA 3 hb Historical: - Allergies: 11:16 atorvastatin calcium; hb 11:16 Codeine; hb 11:16 meperidine HCl; hb 11:16 zolpidem tartrate; hb 11:16 Demerol; hb - PMHx: 11:16 Diabetes - NIDDM; Hypertension; High Cholesterol; Hypothyroidism; Depression; UTI; hb - Immunization history:: Adult Immunizations up to date. - Social history:: Smoking status: Patient denies any tobacco usage or history of. - Family history:: not pertinent. Screenin:05 Abuse screen: Denies threats or abuse. Nutritional screening: No deficits noted. ll1 Tuberculosis screening: No symptoms or risk factors identified. Fall Risk IV access (20 points). Ambulatory Aid- Crutches/Cane/Walker (15 pts). Gait- Weak (10 pts.). Total Gama Fall Scale indicates High Risk Score (45 or more points). Fall prevention measures have been instituted. Side Rails Up X 2 Placed Close to Nursing Station Frequent Obs/Assessments Occuring As available patient and family educated on Fall Prevention Program and Strategies. Assessment: 12:15 General: Appears in no apparent distress. Behavior is calm, cooperative, appropriate ll1 for age. Pain: Denies pain. Pain: had neck/shoulder and cp int. for 2 weeks. Cannot get comfortable at home. Pain began 2 weeks ago. Neuro: No deficits noted. Cardiovascular: Reports chest pain, CP resolved now. Respiratory: No deficits noted. Musculoskeletal: Circulation, motion, and sensation intact. Capillary refill < 3 seconds, Reports pain in neck/shoulder/chest. 13:11 Reassessment: Patient appears in no apparent distress at this time. No changes from ll1 previously documented assessment. Patient and/or family updated on plan of care and expected duration. Pain level reassessed. Patient is alert, oriented x 3, equal unlabored respirations, skin warm/dry/pink. 14:02 Reassessment: Lonny De Anda, ilene, [id number]. Reassessment: ilene Coronado, [id number]. 14:30 Reassessment: Patient appears in no apparent distress at this time. Patient and/or vc family updated on plan of care and expected duration. Pain level reassessed. Patient is alert, oriented x 3, equal unlabored respirations, skin warm/dry/pink. Patient denies pain at this time. Vital Signs: 11:14 BP 92 / 66; Pulse 63; Resp 16; Temp 98.3; Pulse Ox 100% on R/A; Pain 7/10; hb 12:23 BP 127 / 60; Pulse 74; Resp 16; ll1 13:10 BP 143 / 56; Pulse 75; Resp 16; Pulse Ox 97% ; Pain 0/10; ll1 14:30 BP 114 / 73; Pulse 75; Resp 17; Pulse Ox 95% on R/A; vc ED Course: 10:58 Patient arrived in ED. as 10:58 Mayra Frost MD is Private Physician. as 11:16 Triage completed. hb 12:03 Leny Ch RN is Primary Nurse. ll1 12:07 Ronni Leyva MD is Attending Physician. kelsi 12:20 Inserted saline lock: 20 gauge in right antecubital area, using aseptic technique. ll1 Blood collected. 12:37 XRAY Chest (1 view) In Process Unspecified. EDMS 13:04 Patient has correct armband on for positive identification. Bed in low position. Call ll1 light in reach. Side rails up X 1. athletic monitor on. Pulse ox on. NIBP on. 13:04 Patient n/a. ll1 13:05 No provider procedures requiring assistance completed. Patient maintains SpO2 ll1 saturation greater than 95% on room air. 13:59 Mayra Frost MD is Hospitalizing Provider. [facility] 14:59 Patient admitted, IV remains in place. vc Administered Medications: 12:30 Drug: NS 0.9% 1000 ml Route: IV; Rate: 125 ml/hr; Site: right antecubital; ll1 14:58 Follow up: IV Status: Infusion continued upon admission vc 14:25 Drug: Lopressor 25 mg Route: PO; vc 14:57 Follow up: Response: No adverse reaction vc 14:26 Drug: PlaVIX 75 mg Route: PO; vc 14:58 Follow up: Response: No adverse reaction vc Outcome: 14:01 Decision to Hospitalize by Provider. [facility] 14:58 Admitted to Med/surg accompanied by tech, via wheelchair, room 206, Report called to vc Nellie RN 14:58 Condition: good 15:00 Patient left the ED. vc Signatures: Dispatcher [employer] Ronni Urbina MD MD cha Martinez, Amelia as Treesa Chapman, RN RN Sandy Padilla RN RN vc Lewis, Lynsay, RN RN ll1
--- NOTE | 2019-08-01 14:02 | EDPHYS ---
Physician Documentation [facility] Name: Eliana Hayden Age: 83 yrs Sex: Female : 1935 Arrival Date: 08/01/2019 Time: 10:58 Bed 26 Private MD: Mayra Cisneros C ED Physician Ronni Leyva HPI: 07/31 13:50 This 83 yrs old Female presents to ER via Wheelchair with complaints of Chest kelsi Pain. 13:50 The patient or guardian reports chest pain that is located primarily in the substernal kelsi area. Onset: 2 week(s) ago. The pain radiates to left neck. Associated signs and symptoms: Pertinent positives: lightheadedness, shortness of breath. The chest pain is described as a heaviness, causing indigestion, a pressure. Duration: The patient or guardian reports multiple episodes, that wax and wane, with no pattern. Modifying factors: The symptoms are alleviated by nothing. the symptoms are aggravated by nothing. Severity of pain: At its worst the pain was moderate in the emergency department the pain is unchanged. Historical: - Allergies: 11:16 atorvastatin calcium; hb 11:16 Codeine; hb 11:16 meperidine HCl; hb 11:16 zolpidem tartrate; hb 11:16 Demerol; hb - PMHx: 11:16 Diabetes - NIDDM; Hypertension; High Cholesterol; Hypothyroidism; Depression; UTI; hb - Immunization history:: Adult Immunizations up to date. - Social history:: Smoking status: Patient denies any tobacco usage or history of. - Family history:: not pertinent. ROS: 13:50 Constitutional: Negative for fever, chills, and weight loss, Eyes: Negative for injury, kelsi pain, redness, and discharge, ENT: Negative for injury, pain, and discharge, Neck: Negative for injury, pain, and swelling, Abdomen/GI: Negative for abdominal pain, nausea, vomiting, diarrhea, and constipation. 13:50 Cardiovascular: Positive for chest pain. 13:50 Respiratory: Positive for dyspnea on exertion, shortness of breath, on exertion. 13:50 MS/extremity: Positive for swelling, of the right leg and left leg. Exam: 13:50 Constitutional: This is a well developed, well nourished patient who is awake, alert, kelsi and in no acute distress. Head/Face: Normocephalic, atraumatic. Eyes: Pupils equal round and reactive to light, extra-ocular motions intact. Lids and lashes normal. Conjunctiva and sclera are non-icteric and not injected. Cornea within normal limits. Periorbital areas with no swelling, redness, or edema. ENT: Nares patent. No nasal discharge, no septal abnormalities noted. Tympanic membranes are normal and external auditory canals are clear. Oropharynx with no redness, swelling, or masses, exudates, or evidence of obstruction, uvula midline. Mucous membranes moist. Neck: Trachea midline, no thyromegaly or masses palpated, and no cervical lymphadenopathy. Supple, full range of motion without nuchal rigidity, or vertebral point tenderness. No Meningismus. Chest/axilla: Normal chest wall appearance and motion. Nontender with no deformity. No lesions are appreciated. Cardiovascular: Regular rate and rhythm with a normal S1 and S2. No gallops, murmurs, or rubs. Normal PMI, no JVD. No pulse deficits. Respiratory: Lungs have equal breath sounds bilaterally, clear to auscultation and percussion. No rales, rhonchi or wheezes noted. No increased work of breathing, no retractions or nasal flaring. Abdomen/GI: Soft, non-tender, with normal bowel sounds. No distension or tympany. No guarding or rebound. No evidence of tenderness throughout. Back: No spinal tenderness. No costovertebral tenderness. Full range of motion. Skin: Warm, dry with normal turgor. Normal color with no rashes, no lesions, and no evidence of cellulitis. MS/ Extremity: Pulses equal, no cyanosis. Neurovascular intact. Full, normal range of motion. Neuro: Awake and alert, GCS 15, oriented to person, place, time, and situation. Cranial nerves II-XII grossly intact. Motor strength 5/5 in all extremities. Sensory grossly intact. Cerebellar exam normal. Normal gait. Psych: Awake, alert, with orientation to person, place and time. Behavior, mood, and affect are within normal limits. 13:50 Musculoskeletal/extremity: DVT Exam: no pain, no tenderness, negative Homans' sign noted on exam, no appreciated bluish discoloration, no erythema, no increased warmth, swelling, that is mild. Vital Signs: 11:14 BP 92 / 66; Pulse 63; Resp 16; Temp 98.3; Pulse Ox 100% on R/A; Pain 7/10; hb 12:23 BP 127 / 60; Pulse 74; Resp 16; ll1 13:10 BP 143 / 56; Pulse 75; Resp 16; Pulse Ox 97% ; Pain 0/10; ll1 14:30 BP 114 / 73; Pulse 75; Resp 17; Pulse Ox 95% on R/A; vc MDM: 12:07 Patient medically screened. kelsi 13:55 Differential diagnosis: abnormal EKG, acute myocardial infarction, coronary artery kelsi disease congestive heart failure hiatal hernia, mitral valve prolapse, peptic ulcer disease, pneumonia, pulmonary embolus, stable angina, unstable angina. HEART Score: History: Highly Suspicious (2), ECG: Non specific repolarization disturbance / LBTB / PM (1), Age: > or = 65 years (2), Risk Factors: > or = 3 Risk factors for atherosclerotic disease (2), [Hypercholesterolemia] [Hypertension] [DM] [+ Family HX] Troponin: < or = 1 x Normal Limit (0). The patient was not given aspirin in the Emergency Department. Not indicated due to patient's past medical history. The patient's deep vein thrombosis risk score was calculated as follows: Total Score: 0. This patient was found to be at low risk for a deep vein thrombosis by using the Well's assessment criteria. The patient's pulmonary embolism risk score was calculated as follows: Total Score: 0-2 points. This patient was found to be at low risk for a pulmonary embolism by using the Well's assessment criteria. KAYLEY Risk Score: 1 - patient's age is greater or equal to 65 years, 1 - Three or more CAD risk factors, 1- Known CAD, 1 - Recent [<24hrs] Severe Angina, 1 - Elevated Cardiac Markers, TOTAL SCORE = 5. Data reviewed: vital signs, nurses notes, lab test result(s), EKG, radiologic studies, plain films. Data interpreted: outboard motor inspector: rate is 75 beats/min, Pulse oximetry: on room air is 75 %. Test interpretation: by ED physician or midlevel provider: ECG, plain radiologic studies. ED course: dw dr cisneros, please admit and consult dr parnell, call him as well. 07/31 12:12 Order name: Basic Metabolic Panel; Complete Time: 13:41 kelsi 07/31 12:12 Order name: CBC with Diff; Complete Time: 13:41 [facility] 07/31 12:12 Order name: LFT's; Complete Time: 13:41 [facility] 07/31 12:12 Order name: Magnesium; Complete Time: 13:41 [facility] 07/31 12:12 Order name: NT PRO-BNP; Complete Time: 13:41 [facility] 07/31 12:12 Order name: Troponin (emerg Dept Use Only); Complete Time: 13:41 [facility] 07/31 11:19 Order name: EKG; Complete Time: 11:20 07/31 12:12 Order name: XRAY Chest (1 view); Complete Time: 13:41 [facility] 07/31 12:12 Order name: Lipase; Complete Time: 13:41 [facility] 07/31 14:02 Order name: Urine Dipstick--Ancillary (enter results) 07/31 14:05 Order name: CONS Physician Consult EDNE 07/31 11:19 Order name: EKG - Nurse/Tech; Complete Time: 11:19 07/31 12:12 Order name: Cardiac monitoring; Complete Time: 12:23 [facility] 07/31 12:12 Order name: IV Saline Lock; Complete Time: 12:23 [facility] 07/31 12:12 Order name: Labs collected and sent; Complete Time: 12:23 [facility] 07/31 12:12 Order name: O2 Per Protocol; Complete Time: 12:23 [facility] 07/31 12:12 Order name: O2 Sat Monitoring; Complete Time: 12:23 [facility] Administered Medications: 12:30 Drug: NS 0.9% 1000 ml Route: IV; Rate: 125 ml/hr; Site: right antecubital; ll1 14:58 Follow up: IV Status: Infusion continued upon admission vc 14:25 Drug: Lopressor 25 mg Route: PO; vc 14:57 Follow up: Response: No adverse reaction vc 14:26 Drug: PlaVIX 75 mg Route: PO; vc 14:58 Follow up: Response: No adverse reaction vc Disposition: 08/01/19 14:01 Hospitalization ordered by Mayra Cisneros for Inpatient Admission. Preliminary diagnosis are Chest pain, unspecified, Angina pectoris, Essential (primary) hypertension, Type 2 diabetes mellitus, Dyspnea, Unspecified kidney failure - insufficency, worsening. - Bed requested for Telemetry/MedSurg (Inpatient). - Status is Inpatient Admission. vc - Condition is Fair. - Problem is new. - Symptoms have improved. Signatures: Dispatcher [employer] EDMS Ronni Leyva MD MD cha Baxter, Heather, ONEL SYKES Atiya Orta Vanessa, RN RN vc Lewis, Lynsay, RN RN ll1 Corrections: (The following items were deleted from the chart) 14:12 14:01 Hospitalization Ordered by A Margot SIERRA for Inpatient Admission. Preliminary eb diagnosis is Chest pain, unspecified; Angina pectoris; Essential (primary) hypertension; Type 2 diabetes mellitus; Dyspnea; Unspecified kidney failure - insufficency, worsening. Bed requested for Telemetry/MedSurg (Inpatient). Status is Inpatient Admission. Condition is Fair. Problem is new. Symptoms have improved. [facility] 15:00 14:12 08/01/2019 14:01 Hospitalization Ordered by A Margot SIERRA for Inpatient Admission. vc Preliminary diagnosis is Chest pain, unspecified; Angina pectoris; Essential (primary) hypertension; Type 2 diabetes mellitus; Dyspnea; Unspecified kidney failure - insufficency, worsening. Bed requested for Telemetry/MedSurg (Inpatient). Status is Inpatient Admission. Condition is Fair. Problem is new. Symptoms have improved. eb
[2019-08-01] MEDS ORDERED: METOPROLOL TAR 25 MG TAB ONE (14:29)
[2019-08-01] MEDS ORDERED: CLOPIDOGREL 75 MG TABLET ONE (14:29)
[2019-08-01] MEDS ORDERED: ONDANSETRON 4 MG/2 ML VIAL IV PRN (15:03)
[2019-08-01] MEDS ORDERED: ACETAMINOPHEN 500 MG TAB PO PRN (15:03)
[2019-08-01] MEDS ORDERED: MORPHINE 2 MG/ML SYR IV PRN (15:26)
[2019-08-01] MEDS ORDERED: GLUCAGON 1 MG/VIAL IM PRN (16:39)
[2019-08-01] MEDS ORDERED: D50W 25 GM/50 ML SYRINGE/VIAL IV PRN (16:39)
[2019-08-01] MEDS: METOPROLOL TAR 25 MG TAB PO SCH (17:06)
[2019-08-01 17:12] VITALS: BMI 26.0
[2019-08-01 18:57] LABS: Urine Blood NEGATIVE (NEG); Urine Glucose NEGATIVE (NEG); Urine Protein 2+ (NEG)
[2019-08-01] MEDS: GABAPENTIN 400 MG CAP PO SCH ×2 (21:00→21:01)
[2019-08-01] MEDS: INSULIN -REGULAR HUMAN 50 UNIT/0.5 ML ML SQ SCH (21:00)
[2019-08-01] MEDS: APIXABAN 5 MG TABLET PO SCH ×2 (21:00→21:02)
[2019-08-01] MEDS: PANTOPRAZOLE 40MG TABLET PO SCH ×2 (21:00)
[2019-08-01] MEDS: gemfibroziL 600 MG TAB PO SCH ×2 (21:00→21:01)
[2019-08-01] MEDS: MAGNESIUM OXIDE 400 MG TAB PO SCH ×2 (21:00→21:01)
[2019-08-01] MEDS ORDERED: HOME MED 1 EA UNK (Omeprazole [Omeprazole] 20 MG) PO SCH (21:00)
--- NOTE | 2019-08-02 00:43 | HP ---
Date of Admission: 08/01/2019 Chief Complaint: Chest pain, arm pain. History Of Present Illness: This is an 83-year-old female patient who came into emergency room with few days history of chest pain describing as tightness of the chest in the center of her chest with s ome pain in her left arm and neck region. In the last few days, this pain is happening almost on a d aily basis. The patient called my office today and she was advised to come to the emergency room. A fter she was evaluated in the emergency room, she was admitted to the hospital. Last time patient sa tiffani aviles was on 07/25/2019 and at that time she did not report any such complaints and today she tells me that she had 1 episode of this kind of pain a few days before she saw me, but ever since she saw me, she has been having pain almost on a daily basis, but she did not report any such complaints when dorene lim was at the office. I saw her this evening in hospital. She was asymptomatic at that time. Allergies: TO AMOXICILLIN CAUSING RASH AND ITCHING; SULFA CAUSING RASH; AMBIEN, , CODEINE, DEMEROL CAUSING BRADYCARDIA; METFORMIN CAUSING KIDNEY FAILURE; AND ATORVASTATIN CAUSING JOINT PAIN. Medications: List reviewed. Review of Systems: Cardiovascular: As mentioned above. Musculoskeletal: Has chronic arthritis complaints,, unchanged. All other systems reviewed and negative. Past Medical History: Significant for diabetes mellitus with diabetic neuropathy, hypothyroidism, hy pertension, hyperlipidemia, atrial fibrillation which is paroxysmal, allergic rhinitis, gastroesophag eal reflux disease, osteoarthritis at multiple sites. Past Surgical History: Cataract surgery, tonsillectomy, pacemaker placement on May 01, 2019, angelina cystectomy, appendectomy, hysterectomy, ankle surgery. Family History: Father , had pneumonia. Mother , had dementia and congestive heart failure. Brother , had coronary artery disease and myocardial infarction. Sister had breast cancer, cor onary artery disease. Social History: Negative for smoking and alcohol use. Physical Examination: Vital Signs: Temperature 97.6, pulse 65, respiratory rate 16, blood pressure 148/68, oxygen saturati on 99%. Height 5 feet 3 inches, weight 147 pounds. General: Awake, alert, oriented, not in distress. HEENT: Head atraumatic, normocephalic. Conjunctivae nonerythematous. Sclerae white. Mouth, no thr ush or edema noted. Ears/Nose, no mass, lesion, discharge noted. Neck: Supple. No JVD, lymph nodes, bruit, thyromegaly noted. Lungs: Bilateral good equal air entry. Clear to auscultation. No rhonchi. No rales. Heart: Normal heart sounds, no murmur or gallop. Abdomen: Soft, bowel sounds normal. No guarding, rigidity, tenderness, mass, hepatosplenomegaly, dis tention, or bruit noted. Extremities: No leg edema. No calf tenderness. Skin: No rash, ulcer, cellulitis. Lymphatics: No lymph node enlargement in neck, supraclavicular, infraclavicular region. Neuro: No focal neurological deficit. Chest: Unremarkable. External Genitalia: Deferred. Rectal: Deferred. Laboratory Data: White count 9.1, hemoglobin 13.1, platelets 19. Sodium 138, potassium 4.5, chlorid e 105, bicarb 26, BUN 30, creatinine 1.32, glucose 240. Liver function tests unremarkable. Troponin 0.40 on the first set, second set 0.43. Lipase 94. Urinalysis pending. Impression: 1.Angina. 2.Hypertension. 3.Mixed hyperlipidemia. 4.Type 2 diabetes mellitus with diabetic neuropathy. 5.Hypothyroidism. 6.Osteoarthritis, multiple sites. 7.Gastroesophageal reflux disease. 8.Status post pacemaker placement. Plan: Admit the patient to hospital for further evaluation and management of this problem. Patient is appropriate for inpatient and is expected to spend 2 midnights in hospital. We will keep her on t elemetry. Continue home medications per order. Consult Cardiology. I will see her tomorrow for fol lowup. We will continue her Eliquis and get serial cardiac enzymes, further cardiac workup to be don e as per stock associate. Patient has seen Dr. Ceja in the past and now she will follow up with Dr. Jean Carlos griffith or his partner, Dr. Shukla. Details and plan of treatment discussed with the patient. We bernard torres manage diabetes with sliding scale insulin. MECCA/MODL Voice ID: [id number]
[2019-08-02] MEDS: METOPROLOL TAR 25 MG TAB PO SCH ×2 (05:33→17:51)
[2019-08-02] MEDS: LEVOTHYROXINE SOD 0.088 MG TAB PO SCH (05:33)
[2019-08-02 05:58] LABS: Absolute Lymphocytes (CBC) 1.9 K/uL (0.7-4.9); Basophils % 0.6 % (0-1.3); Hematocrit 36.4 % (36.0-45.0); RBC Red Blood Cell Count 4.52 M/uL (3.86-4.86)
[2019-08-02 06:28] LABS: Potassium 4.5 mmol/L (3.5-5.1)
[2019-08-02] MEDS: INSULIN -REGULAR HUMAN 50 UNIT/0.5 ML ML SQ SCH ×4 (07:30→21:28)
[2019-08-02] MEDS ORDERED: GLUCAGON 1 MG/VIAL IM PRN (07:51)
[2019-08-02] MEDS ORDERED: D50W 25 GM/50 ML SYRINGE/VIAL IV PRN (07:51)
[2019-08-02] MEDS: INSULIN GLARGINE 100 UNITS/ML SQ SCH (08:02)
[2019-08-02] MEDS: PANTOPRAZOLE 40MG TABLET PO SCH ×2 (08:04→21:14)
[2019-08-02] MEDS: LOSARTAN POTASSIUM 50 MG TABLET PO SCH (08:04)
[2019-08-02] MEDS: SITAGLIPTIN PHOS 100 MG TAB PO SCH (08:04)
[2019-08-02] MEDS: GABAPENTIN 400 MG CAP PO SCH ×4 (08:04→21:15)
[2019-08-02] MEDS: ASPIRIN EC 81 MG TAB PO SCH (08:04)
[2019-08-02] MEDS: gemfibroziL 600 MG TAB PO SCH ×2 (08:04→21:15)
--- NOTE | 2019-08-02 10:56 | EKG ---
Test Date: 2019-08-02 Test Time: 09:29:03 Modeling Director: ODIN MEASUREMENT RESULTS: Intervals: Rate: 63 HI: 222 QRSD: 156 QT: 490 QTc: 501 [place]: P: 40 HI: 222 QRS: -77 T: 87 INTERPRETIVE STATEMENTS: Sinus rhythm with 1st degree AV block Left axis deviation Left ventricular hypertrophy with QRS widening and repolarization abnormality Inferior infarct, age undetermined Abnormal ECG Compared to ECG 08/01/2019 11:12:33 Atrial premature complex(es) no longer present Myocardial infarct finding still present Electronically Signed On 08-02-19 10:55:57 CDT by Pillo Vale
--- NOTE | 2019-08-02 10:57 | EKG ---
Test Date: 2019-08-01 Test Time: 11:12:33 Combination Building Inspector: HB MEASUREMENT RESULTS: Intervals: Rate: 85 ME: 230 QRSD: 142 QT: 434 QTc: 516 [place]: P: 26 ME: 230 QRS: -73 T: 92 INTERPRETIVE STATEMENTS: Sinus rhythm with 1st degree AV block with premature atrial complexes Left axis deviation Left ventricular hypertrophy with QRS widening and repolarization abnormality Inferior infarct, age undetermined Anterolateral infarct, age undetermined Abnormal ECG Compared to ECG 05/07/2018 13:18:40 Atrial premature complex(es) now present Left ventricular hypertrophy now present Early repolarization now present Myocardial infarct finding now present Left bundle-branch block no longer present Electronically Signed On 08-02-19 10:56:05 CDT by Pillo Vale
[2019-08-02] MEDS: ALPRAZOLAM 0.25 MG TABLET PO SCH (21:14)
[2019-08-02] MEDS: MAGNESIUM OXIDE 400 MG TAB PO SCH (21:16)
--- NOTE | 2019-08-02 23:00 | CON ---
Date of Consultation: 08/02/2019 Reason For Consultation: Non-ST elevation myocardial infarction. History Of Present Illness: Ms. Hayden is 83-year-old, has a history of pacemaker, mixed dyslipidem ia, hypertension, diabetes, hypothyroidism, gastroesophageal reflux disease, and a neuropathy. She c saturnino in with chest pain midsternal radiating to the left neck and left jaw. Positive troponin of 0.40 admitted for further evaluation and treatment. Denied PND, orthopnea, pedal edema, palpitations, or syncope. Denied any fevers or chills or cough. Past Medical History: As stated above. Allergies: CODEINE, LIPITOR, AND DEMEROL. Review of Systems: Negative. Social History: Negative. Family History: Noncontributory. Medications: At home include Eliquis, Prilosec Januvia, Lopid, Amaryl, Synthroid, insulin, Cozaar, N eurontin. Physical Examination: General: She was alert and oriented x3. She was pain free by the time I saw her. Vital Signs: Stable. She was afebrile and she was in a paced rhythm. HEENT: Negative. Neck: Supple. No bruit, lymphadenopathy, JVD, or thyromegaly. Chest: Clear to auscultation and percussion. Cardiac: Revealed a paced rhythm. No murmurs, gallops, or rubs. Abdomen: Benign. Extremities: Revealed no clubbing, cyanosis, or edema. Skin: Dry and intact. Neurological: She was nonfocal. Pulses were present distally bilaterally. Diagnostic Data: Her glucose was 240, creatinine 1.32. Troponin is 0.40. Echocardiogram in April showed normal ejection fraction with mild pulmonary hypertension. EKG showed paced rhythm. Impression And Plan: 1.Non-ST elevation myocardial infarction. I think we need to continue to hold her Eliquis. We will plan a catheterization in about 36 to 48 hours, but it will be done on 08/03/2019 to define her brittany nary anatomy. Patient understands the risk and the benefits of the procedure. She agrees to proceed . I would continue her antilipid regimen and NARA inhibitors meanwhile. 2.Status post pacemaker. 3.History of atrial fibrillation on Eliquis. Eliquis will be held. 4.History of dyslipidemia. 5.Hypertension, well controlled. 6.Diabetes, poorly controlled. 7.Hypothyroidism. 8.Gastroesophageal reflux disease. 9.Neuropathy. As stated earlier, hold Eliquis. Continue the rest of the regimen and I will see what the catheteriz ation shows prior to making final decision. Another echocardiogram is pending. I will discuss the c ase further with Dr. Frost. MARQUEZ/LOGAN Voice ID: [id number] Report ID: [id number]
--- NOTE | 2019-08-03 00:30 | PN ---
Date of Progress Note: 08/02/2019 Subjective: Patient was seen this morning for followup. Lying in bed not in distress. Denies any c hest pain, shortness of breath this morning when I saw her. Objective: Vital Signs: Reviewed. HEENT: Unremarkable. Lungs: Clear to auscultation. Cardiac: Heart sounds normal. Abdomen: Soft, bowel sounds normal. No guarding, rigidity, tenderness, distention. Extremities: No leg edema. Impression: 1.Angina. 2.Hypertension. 3.Type 2 diabetes mellitus. 4.Hyperlipidemia. Plan: Continue current medication. Patient was seen by supervisor slate splitting, Dr. Vale who is planning to do cardiac cath tomorrow. He has discontinued her anticoagulation therapy which is Eliquis and plan for cardiac cath tomorrow. I will see her tomorrow morning for followup. Fingerstick blood sugar r lei reviewed and we will start her on Lantus insulin along with sliding scale as per order. I wi ll see her tomorrow for followup. MECCA/MODL Voice ID: [id number] Report ID: [id number]
[2019-08-03] MEDS: METOPROLOL TAR 25 MG TAB PO SCH ×2 (06:11→18:00)
[2019-08-03] MEDS: LOSARTAN POTASSIUM 50 MG TABLET PO SCH (06:11)
[2019-08-03] MEDS: ASPIRIN EC 81 MG TAB PO SCH (06:11)
[2019-08-03] MEDS: LEVOTHYROXINE SOD 0.088 MG TAB PO SCH (06:30)
[2019-08-03] MEDS: INSULIN -REGULAR HUMAN 50 UNIT/0.5 ML ML SQ SCH ×4 (07:30→20:37)
[2019-08-03] MEDS: INSULIN GLARGINE 100 UNITS/ML SQ SCH (08:00)
[2019-08-03] MEDS: gemfibroziL 600 MG TAB PO SCH ×2 (09:00→20:31)
[2019-08-03] MEDS: SITAGLIPTIN PHOS 100 MG TAB PO SCH (09:00)
[2019-08-03] MEDS: GABAPENTIN 400 MG CAP PO SCH ×5 (09:00→22:00)
[2019-08-03] MEDS: PANTOPRAZOLE 40MG TABLET PO SCH ×2 (09:00→20:31)
[2019-08-03] MEDS ORDERED: D5 0.9 NS 1,000 ML IV SCH (10:00)
--- NOTE | 2019-08-03 11:02 | ECHO ---
HEIGHT: 5 ft 3 in WEIGHT: 147 lb 0 oz DATE OF STUDY: 08/03/[address]: Ronni Leyva MD 2-DIMENSIONAL: YES M.MODE: YES DOPPLER: YES COLOR FLOW: YES TDS: NO PORTABLE: NO DEFINITY: NO BUBBLE STUDY: NO DIAGNOSIS: CHEST PAIN CARDIAC HISTORY: CATHERIZATION: NO SURGERY: NO PROSTHETIC VALVE: NO PACEMAKER: YES MEASUREMENTS (cm) DIASTOLIC (NORMALS) SYSTOLIC (NORMALS) IVSd 1.1 (0.6-1.2) LA Diam 3.6 (1.9-4.0) LVEF 67% LVIDd 3.7 (3.5-5.7) LVIDs 2.3 (2.0-3.5) %FS 37% LVPWd 1.2 (0.6-1.2) Ao Diam 2.7 (2.0-3.7) 2 DIMENSIONAL ASSESSMENT: RIGHT ATRIUM: NORMAL LEFT ATRIUM: NORMAL RIGHT VENTRICLE: PACEMAKER LEFT VENTRICLE: NORMAL TRICUSPID VALVE: NORMAL MITRAL VALVE: MITRAL ANNULAR CALCIFICATION PULMONIC VALVE: NORMAL AORTIC VALVE: SCLEROSIS PERICARDIAL EFFUSION: NONE AORTIC ROOT: NORMAL LEFT VENTRICULAR WALL MOTION: DOPPLER/COLOR FLOW: COMMENTS: LOWER LEFT VENTRICULAR COMPLIANCE. NORMAL LEFT VENTRICULAR EJECTION FRACTION AND SIZE. NO EFFUSION. MITRAL ANNULAR CALCIFICATION. AORTIC SCLEROSIS. PACEMAKER IN RIGHT VENTRICLE. TECHNOLOGIST: Juanito PABON
[2019-08-03] MEDS ORDERED: HEPA 1000U/500MLS 0 UNIT/0 ML BAG IV ONE (13:19)
[2019-08-03] MEDS ORDERED: NA CHLORIDE 0.9% 500 ML ONE (15:34)
[2019-08-03] MEDS ORDERED: ATROPINE SULF 1 MG/10 ML SYR IV ONE (16:47)
[2019-08-03] MEDS ORDERED: HEPARIN 5000 UNIT/ML 1 ML VIAL ONE ×2 (16:47→16:48)
[2019-08-03] MEDS ORDERED: MIDAZOLAM HCL 2 MG/2 ML INJ ONE (16:47)
[2019-08-03] MEDS ORDERED: FENTANYL CITR 100 MCG/2 ML ONE (16:47)
[2019-08-03] MEDS ORDERED: NICARDIPINE HCL 25 MG/10 ML IV ONE (16:48)
[2019-08-03] MEDS: ALPRAZOLAM 0.25 MG TABLET PO SCH (20:30)
[2019-08-03] MEDS: MAGNESIUM OXIDE 400 MG TAB PO SCH (20:31)
--- NOTE | 2019-08-03 23:19 | PN ---
Date of Progress Note: 08/03/2019 Subjective: Patient was seen this morning for followup lying in bed, not in distress. No new compla ints or problems reported. No chest pain. Objective: Vital Signs: Reviewed. HEENT: Unremarkable. Lungs: Clear to auscultation. Heart: Sounds normal. Abdomen: Soft. Bowel sounds normal. No guarding, rigidity, tenderness, distention. Extremities: No leg edema. Impression: 1.Angina. 2.Diabetes mellitus. 3.Hypertension. 4.Hyperlipidemia. 5.Osteoarthritis, multiple sites. Plan: Patient was kept n.p.o. after midnight for cardiac cath. IV fluid D5 normal saline was starte d. We will continue current blood pressure and diabetes management. Dr. Vale called me this even ing and informed me that because of some emergencies, he was not able to do cardiac cath on the patie nt today and he will do it tomorrow. I will see her tomorrow morning for followup. MECCA/MODL Voice ID: [id number] Report ID: [id number]
[2019-08-04] MEDS: ASPIRIN EC 81 MG TAB PO SCH (05:27)
[2019-08-04] MEDS: METOPROLOL TAR 25 MG TAB PO SCH (05:27)
[2019-08-04] MEDS: LOSARTAN POTASSIUM 50 MG TABLET PO SCH (05:27)
[2019-08-04] MEDS ORDERED: ATROPINE SULF 1 MG/10 ML SYR IV ONE (06:58)
[2019-08-04] MEDS ORDERED: NA CHLORIDE 0.9% 0 ML ONE (06:58)
[2019-08-04] MEDS ORDERED: MIDAZOLAM HCL 2 MG/2 ML INJ ONE (06:58)
[2019-08-04] MEDS ORDERED: FENTANYL CITR 100 MCG/2 ML ONE (06:58)
[2019-08-04] MEDS ORDERED: LIDOCAINE 1% MPF 30 ML VIAL ONE (07:08)
[2019-08-04] MEDS ORDERED: HEPA 1000U/500MLS 1,000 UNIT/500 ML BAG IV ONE (07:08)
[2019-08-04] MEDS ORDERED: NA CHLORIDE 0.9% 500 ML ONE (07:30)
[2019-08-04] MEDS: INSULIN -REGULAR HUMAN 50 UNIT/0.5 ML ML SQ SCH ×2 (07:30→12:32)
[2019-08-04] MEDS ORDERED: ONDANSETRON 4 MG/2 ML VIAL ONE (08:30)
--- NOTE | 2019-08-04 08:42 | OP ---
Date of Procedure: 08/04/2019 Surgeon: Pillo Vale MD Byproduct Engineer: Rose Kilgore. The patient will be going home today. I will discuss the case further with Dr. Frost. I will follow her in the office in 2 weeks. Indications: The patient was admitted to Dr. Frost on 08/01/2019 for non-ST elevation myocardial infa rction. Procedures: She was brought to the lab support service tech today on 08/04/2019, underwent a left heart catheterizat ion, selective coronary arteriogram, left ventriculogram with left ventricular end-diastolic pressure measurements. Description Of Procedure: She was brought to the lab support service tech, prepped and draped in the routine sterile fashion. Given Versed for sedation. A 6-Prydeinig sheath introduced in the right common femoral arter y successfully. Angio-Seal was used to close the case. Angiography there was normal. Johnny winnie ter left and right were used to do the diagnostic catheterization. She was found to have a normal le ft main, normal RCA. She is right dominant. Her LAD had a 50% mid LAD stenosis with a 90% long diag onal-2 stenosis from the ostium to the mid diagonal. She had a 50% ostial circumflex and 90% ostial OM-1 small vessel, maybe a 2 mm. LV-gram was done with JR4 with normal LV-gram and normal left ventr icular end-diastolic pressure. No wall motion abnormalities. Ejection fraction is 65-70%. There we re no complications. Blood Loss: 5 mL. Postoperative Diagnoses: Severe coronary artery disease in the diagonal and the obtuse marginal. I prefer we treat Ms. Hayden with medical therapy. Anesthesia: Total conscious sedation was 30 minutes. NB/MODL Voice ID: [id number] Report ID: [id number]
[2019-08-04] MEDS: GABAPENTIN 400 MG CAP PO SCH ×2 (10:00→13:18)
[2019-08-04] MEDS: gemfibroziL 600 MG TAB PO SCH (10:00)
[2019-08-04] MEDS: PANTOPRAZOLE 40MG TABLET PO SCH (10:00)
[2019-08-04] MEDS: LEVOTHYROXINE SOD 0.088 MG TAB PO SCH (10:01)
[2019-08-04] MEDS: INSULIN GLARGINE 100 UNITS/ML SQ SCH (10:01)
[2019-08-04] MEDS: SITAGLIPTIN PHOS 100 MG TAB PO SCH (10:01)
[2019-08-04 10:50] VITALS: O2SAT 98
[2019-08-04 12:15] VITALS: BP 164/67; TEMP 97
--- NOTE | 2019-08-05 19:44 | DS ---
Date of Discharge: 08/04/2019 Disposition: Discharged to go home. Physical Examination: HEENT: Unremarkable. Lungs: Clear to auscultation. Heart: Sounds normal. Abdomen: Soft. Bowel sounds normal. No guarding, rigidity, tenderness, or distention. Extremities: No leg edema. Laboratory Data: Upon admission on 08/01/2019, white count 9.1, hemoglobin 13.1, platelets 190. On 08/02/2019, white count 5.9, hemoglobin 11.9, platelets 177. Chemistry on admission, 08/01/2019, sod ium 138, potassium 4.5, chloride 105, bicarb 26, BUN 30, creatinine 1.32, glucose 240. Liver functio n tests unremarkable. Initial troponin 0.40, second troponin 0.43, third troponin 0.32. Discharge Medications And Instructions: 1.Continue all prior home medications. 2.Do not take any aspirin, Aleve, Motrin type of medications. 3.Take Plavix 75 mg p.o. daily. 4.Take metoprolol succinate 25 mg 1 tablet p.o. daily. 5.Take rosuvastatin 20 mg p.o. at bedtime. 6.Follow up at my office next week and follow up with Dr. Vale in 2 to 3 weeks. Hospital Course: 83-year-old female patient admitted to the hospital with complaints of chest pain. Please see dictated H and P for more information. Patient had chest pain and arm pain and after she was evaluated in the ER, she was admitted to the hospital. Her cardiac enzymes were abnormal and Ca rdiology consultation was obtained. Echocardiogram showed normal ejection fraction. Patient receive d anticoagulation therapy and Dr. Vale recommended cardiac cath, so her Eliquis was discontinued a nd patient had a cardiac cath done, which showed 90% stenosis of the OM1 and second diagonal artery. Each location had 90% stenosis. Because of the location, she was considered as very high risk for a ny kind of intervention, so no intervention was done and medical management was recommended by Dr. Rudy coyne. Patient will follow up with cartoon artist on outpatient basis as well. Dr. Vale has recomm ended for patient to continue Eliquis that she takes for her paroxysmal atrial fibrillation and add P lavix, metoprolol, Crestor as outlined above. Patient was discharged in stable condition. Final Diagnoses: 1.Unstable angina. 2.Hypertension. 3.Mixed hyperlipidemia. 4.Type 2 diabetes mellitus with diabetic neuropathy. 5.Hypothyroidism. 6.Paroxysmal atrial fibrillation. 7.Chronic anticoagulation therapy. 8.Osteoarthritis, multiple sites. 9.Gastroesophageal reflux disease. 10.Status post pacemaker placement. MECCA/MODL Voice ID: [id number] Report ID: [id number]
== END 2019-08-04 15:00 | disposition home or self-care (01) | DRG 287 ==
LOC: ER 10:57 → ERHOLD 14:02 → 2ND 14:48
PROVIDERS: ADMIT Internal Medicine; ATTEND Internal Medicine
PROC: 4A023N7 Measurement of Cardiac Sampling and Pressure, Left Heart, Percutaneous Approach (ICD-10-PCS; principal; 2019-08-04)
PROC: B2111ZZ Fluoroscopy of Multiple Coronary Arteries using Low Osmolar Contrast (ICD-10-PCS; 2019-08-04)
PROC: B2151ZZ Fluoroscopy of Left Heart using Low Osmolar Contrast (ICD-10-PCS; 2019-08-04)
DX: I20.9 Angina pectoris, unspecified (principal); Z88.1 Allergy status to other antibiotic agents; Z88.5 Allergy status to narcotic agent; Z88.8 Allergy status to other drugs, medicaments and biological substances; I10 Essential (primary) hypertension; K21.9 Gastro-esophageal reflux disease without esophagitis; Z95.0 Presence of cardiac pacemaker; Z90.49 Acquired absence of other specified parts of digestive tract; Z90.710 Acquired absence of both cervix and uterus; E78.2 Mixed hyperlipidemia; E11.40 Type 2 diabetes mellitus with diabetic neuropathy, unspecified; E03.9 Hypothyroidism, unspecified; M19.90 Unspecified osteoarthritis, unspecified site; Z79.01 Long term (current) use of anticoagulants; Z79.4 Long term (current) use of insulin; Z79.899 Other long term (current) drug therapy; I48.0 Paroxysmal atrial fibrillation
CPT/HCPCS: 36415; 71045; 80048; 80076; 81003; 82947; 83690; 83735; 83880; 84484; 85025; 93005; 93306; 93458; 96360; 96361; 99285; C1760; C1893; J0583; J1644; J1815; J2250; J2405; J3010; J7040; J7042; U0002

== ENCOUNTER 2020-12-09 06:43 | Day surgery (SDC) | payer OTHER ==
[2020-12-04 14:10] LABS: Absolute Lymphocytes (CBC) 1.6 K/uL (0.7-4.9); Basophils % 0.3 % (0-1.3); Hematocrit 39.2 % (36.0-45.0); Lymphocytes % 24.3 % (15.3-44.8); MPV 8.1 fL (7.6-11.3); RBC Red Blood Cell Count 5.02 M/uL (3.86-4.86)
--- NOTE | 2020-12-04 14:22 | RAD REPORT ---
EXAM DESCRIPTION: RAD - Chest Pa And Lat (2 Views) - 12/04/2020 2:06 pm CLINICAL HISTORY: preop COMPARISON: Chest Single View dated 08/01/2019; Chest Pa And Lat (2 Views) dated 10/28/2017; CHEST SIN GLE VIEW dated 04/24/2015; CHEST PA AND LAT 2 VIEW dated 11/28/2014 FINDINGS: Lines: Pacemaker. Lungs: No evidence of edema or pneumonia. Pleural: No significant pleural effusions or pneumothorax. Cardiac: The heart size is within normal limits. Bones: No acute fractures. Other: IMPRESSION: No acute cardiopulmonary disease.
[2020-12-04 14:31] LABS: Potassium 4.1 mmol/L (3.5-5.1)
[2020-12-04 14:41] LABS: Protime INR 1.4
[2020-12-09] MEDS ORDERED: NA CHLORIDE 0.9% 500 ML ONE (07:20)
[2020-12-09] MEDS ORDERED: FENTANYL CITR 100 MCG/2 ML ONE (07:47)
[2020-12-09] MEDS ORDERED: ATROPINE SULF 1 MG/10 ML SYR IV ONE (07:47)
[2020-12-09] MEDS ORDERED: HEPA 1000U/500MLS 2,000 UNIT/1,000 ML BAG IV ONE (07:47)
[2020-12-09] MEDS ORDERED: MIDAZOLAM HCL 2 MG/2 ML INJ ONE (07:47)
[2020-12-09] MEDS ORDERED: HEPARIN 5000 UNIT/ML 1 ML VIAL ONE (07:47)
[2020-12-09] MEDS ORDERED: LIDOCAINE 1% 20 ML MDV ONE (07:47)
--- NOTE | 2020-12-09 09:16 | OP ---
Surgeon: Pillo Vale MD Service Center Assistant: Rose Kilgore. Admitted to my service as an outpatient today on 12/09/2020. She was admitted to the rn cardiac cath for ab dominal angiogram with runoff. Indication: Peripheral arterial disease, abnormal arterial Doppler on the right, and claudication. Procedure In Detail: The patient was prepped and draped in the routine sterile fashion. Given Verse d and fentanyl for sedation. A 6-Arabic sheath introduced in the left common femoral artery using th e Seldinger technique and 10 cc of Xylocaine. Angiography there was normal. Angio-Seal was used to close the case. A pigtail catheter was advanced at about T12-L1 level. Abdominal angiogram with run off using 60 cc of dye initially showed normal renals, normal iliacs, normal aorta. The left lower e xtremity was normal without any focal stenosis. On the right side, her SFA and popliteal had sequent ial 40% to 50% stenosis. She had excellent runoff bilaterally below the knee in the anterior tibial, posterior tibial, and peroneal artery. The patient tolerated the procedure well. There were no com plications. Blood Loss: 5 cc. Postoperative Diagnosis: Moderate peripheral arterial disease. I will continue medical therapy. The patient is already taking Plavix. She is already on Eliquis. I am going to increase her Crestor to 40 mg daily. Consider Trental. I will intervene only if we villalobos ve to and it would be probably best to do an antegrade stick on the right side considering she has a very tortuous bifurcation of the iliacs. Anesthesia: Total conscious sedation 45 minutes. Plan: Plan is for her to stay in the hospital for 2 hours of bedrest and then go home. She will see me in 2 weeks. MARQUEZ/LOGAN Voice ID: [id number] Report ID: [id number]
[2020-12-09 16:29] VITALS: BP 158/52; TEMP 98; O2SAT 97
== END 2020-12-09 10:57 | disposition home or self-care (01) ==
LOC: PRE 06:43 → CCL 10:57
DX: I70.211 Atherosclerosis of native arteries of extremities with intermittent claudication, right leg (principal); I25.10 Atherosclerotic heart disease of native coronary artery without angina pectoris; I65.21 Occlusion and stenosis of right carotid artery; I34.0 Nonrheumatic mitral (valve) insufficiency; I10 Essential (primary) hypertension; E78.2 Mixed hyperlipidemia; I48.0 Paroxysmal atrial fibrillation; I35.2 Nonrheumatic aortic (valve) stenosis with insufficiency; E11.9 Type 2 diabetes mellitus without complications; J44.1 Chronic obstructive pulmonary disease with (acute) exacerbation; Z95.0 Presence of cardiac pacemaker; Z79.01 Long term (current) use of anticoagulants; Z79.02 Long term (current) use of antithrombotics/antiplatelets; Z88.6 Allergy status to analgesic agent
CPT/HCPCS: 93005; 85025; 80048; 36415; 85610; 82947 ×2; 85730; 71046; 36200; 75630; U0002; C1893; C1760; J2250; J3010; J7040; J1644

== ENCOUNTER 2022-02-26 17:15 | Emergency (ER) | payer OTHER ==
--- OUTSIDE RECORDS SUMMARY | 2022-02-26 17:17 | XMS REPORT | Continuity of Care Document ---
:1935 Author Organization [facility] t Address [address] [place] [address] Care Team Providers Name Role Phone Nuno Mix MD, [facility] Primary Care Physician COLBY NOBLE Attending Clinician Unavailable Problems This patient has no known problems. Allergies, Adverse Reactions, Alerts Allergy Allergy Status Severity Reaction(s) Onset Inactive Treating Comm ents Source Name Type Date Date Clinician Meperidi Propensi Active Anxiety "Made her Me thodi ne ty to 6-[address] adverse 00:00: nervous [facility]osp[facility] reaction 00 and l s to hyper- drug active and could not sleep after taking this medicatio n" Also gave her diarrhea. Codeine Propensi Active Anxiety "Made her Met hodi ty to 6-[address] adverse 00:00: nervous Hospita reaction 00 and l s to hyper- drug active and could not sleep after taking this medicatio n" Also gave her diarrhea. Social History Social Habit Start Date Stop Date Quantity Comments Source Sex Assigned At [birth year] [facility] 00:00:00 00:00:00 Smoking Status Start Date Stop Date Source Tobacco smoking consumption unknown [facility] Medications Ordered Filled Start Stop Current Ordering Indication Dosage Frequency Signature Comments Components Source Medication Medication Date Date Medication? Clinician (SIG) Name Name No known No No known Metho di medications [address] 15:01: s [facility]osp[facility] 05 l Procedures This patient has no known procedures. Plan of Care Planned Activity Planned Date Details Comments Source Future Scheduled 2022-01-31 INFLUENZA VACCINE [facility] 23:19:52 [code = INFLUENZA VACCINE] Future Scheduled 2022-01-31 COVID-19 VACCINE (#1) [facility] 23:19:52 [code = COVID-19 VACCINE (#1)] Future Scheduled 2022-01-31 SHINGLES VACCINES (1 Met [facility] Test 23:19:52 of 2) [code = SHINGLES VACCINES (1 of 2)] Future Scheduled 2022-01-31 65+ PNEUMOCOCCAL [facility] 23:19:52 VACCINE (1 - PCV) [code = 65+ PNEUMOCOCCAL VACCINE (1 - PCV)] Encounters Start End Encounter Admission Attending Care Care Encounter Source Date/Time Date/Time Type Type Clinicians Facility Department ID 2019-05-01 2019-05-02 Outpatient [facility], [facility] [address] [facility] 06:06:00 09:25:00 COLBY Results This patient has no known results.
--- NOTE | 2022-02-26 18:09 | RAD REPORT ---
EXAM DESCRIPTION: CT - CTHCSPWOC - 02/26/2022 6:00 pm CLINICAL HISTORY: Trauma, head and neck injury. fall COMPARISON: No comparisons TECHNIQUE: Axial 5 mm thick images of the head were obtained. Axial 2 mm thick images of the cervical spine were obtained with sagittal and coronal reconstruction images generated and reviewed. All CT scans are performed using dose optimization technique as appropriate and may include automated exposure control or mA/KV adjustment according to patient size. FINDINGS: CT HEAD WITHOUT CONTRAST: No acute hemorrhage, hydrocephalus or extra-axial collection is identified.No areas of brain edema or midline shift. Cerebral atrophy The paranasal sinuses and mastoids are clear.The calvarium is intact. CT CERVICAL SPINE WITHOUT CONTRAST: No fracture or subluxation.No prevertebral soft tissues swelling is identified. Multilevel cervical s pondylosis with varying degrees of neural foraminal narrowing. IMPRESSION: No acute intracranial or cervical spine findings.
[2022-02-26 18:10] LABS: Absolute Lymphocytes (CBC) 1.4 K/uL (0.7-4.9); Hematocrit 39.6 % (36.0-45.0); Lymphocytes % 19.4 % (15.3-44.8); MCV 66.6 fL (80-100); MPV 8.3 fL (7.6-11.3); RBC Red Blood Cell Count 5.95 M/uL (3.86-4.86)
[2022-02-26 18:19] LABS: Blood Morphology Comment NOTED (NOT SEEN); Hypochromasia 1+; Platelet Estimate ADEQ; White Blood Cell Scan OK (OK)
[2022-02-26 18:21] LABS: Protime INR 1.27
[2022-02-26] MEDS ORDERED: ACETAMINOPHEN 325 MG TABLET ONE (19:11)
--- NOTE | 2022-02-26 19:27 | ER ---
Nurse's Notes [facility] Name: Eliana Hayden Age: 86 yrs Sex: Female : 1935 Arrival Date: 02/26/2022 Time: 17:40 Bed 2 Private MD: Diagnosis: Contusion of unspecified part of head, initial encounter Presentation: 02/26 17:41 Chief complaint: EMS states: patient fell at home onto her bottom, then back onto her ap3 head. patient presents to the ED with a hematoma on the back of her head. Coronavirus screen: At this time, the client does not indicate any symptoms associated with coronavirus-19. Ebola Screen: No symptoms or risks identified at this time. Initial Sepsis Screen: Does the patient meet any 2 criteria? No. Patient's initial sepsis screen is negative. Does the patient have a suspected source of infection? No. Patient's initial sepsis screen is negative. Risk Assessment: Do you want to hurt yourself or someone else? Patient reports no desire to harm self or others. Onset of symptoms was February 26, 2022. 17:41 Method Of Arrival: EMS: [facility] ap3 17:41 Acuity: JANINA 3 ap3 19:17 Care prior to arrival: None. Mechanism of Injury: Fall. Trauma event details: Injury ap3 occurred in the [facility], Injury occurred: at home. Injury occurred: February 26, 2022. Triage Assessment: 17:45 General: Appears uncomfortable, Behavior is calm, cooperative. Pain: Complains of pain ap3 in scalp. Neuro: Level of Consciousness is awake, alert, obeys commands, Oriented to person, place, time. Cardiovascular: Patient's skin is warm and dry. Respiratory: Airway is patent Respiratory effort is even, unlabored, Respiratory pattern is regular, symmetrical. Historical: - Allergies: 17:44 atorvastatin calcium; ap3 17:44 Codeine; ap3 17:44 Demerol; ap3 17:44 meperidine HCl; ap3 17:44 zolpidem tartrate; ap3 - PMHx: 17:44 Depression; Diabetes - NIDDM; High Cholesterol; Hypertension; Hypothyroidism; UTI; ap3 - Immunization history:: Client reports receiving the 2nd dose of the Covid vaccine. - Social history:: Smoking status: Patient denies any tobacco usage or history of. - Immunization history: Last tetanus immunization: - up to date. Screenin:44 [facility] ED Fall Risk Assessment (Adult) History of falling in the last 3 months, ap3 including since admission Yes- single mechanical fall (1 pt) Confusion or Disorientation No (0 pts) Intoxicated or Sedated No (0 pts) Impaired Gait Yes (1 pt) Mobility Assist Device Used No (0 pt) Altered Elimination No (0 pt) Score/Fall Risk Level 0 - 2 = Low Risk. Abuse screen: Denies threats or abuse. Nutritional screening: No deficits noted. Tuberculosis screening: No symptoms or risk factors identified. Primary Survey: 18:00 NO uncontrolled hemorrhage observed. Breathing/Chest: Spontaneous respiratory effort, ap3 equal unlabored respirations, breath sounds clear bilaterally, regular pattern, symmetrical chest rise and fall. Circulation: No external hemorrhage present. Regular and strong central pulse, skin warm/dry/normal color. Disability Client is alert. Exposure/Environment: There is no evidence of uncontrolled external bleeding. A warming method has been applied: A warm blanket has been provided to the patient. 19:16 Reassessment Alertness and Airway: Awake and alert. The airway is patent. Breathing: ap3 Spontaneous respiratory effort, equal unlabored respirations, breath sounds clear bilaterally, regular pattern with symmetrical chest rise and fall. Circulation: No external hemorrhage noted. Regular and strong central pulse, skin warm/dry/normal color. Disability: Alert. Assessment: 19:38 General: Appears in no apparent distress. Behavior is calm, cooperative. Neuro: Level kd3 of Consciousness is awake, alert, obeys commands, Oriented to person, place, time, situation. Cardiovascular: Patient's skin is warm and dry. Respiratory: Airway is patent Trachea midline Respiratory effort is even, unlabored, Respiratory pattern is regular, symmetrical. Vital Signs: 18:04 BP 107 / 92; Pulse 63; Resp 17; Temp 97.8(O); Pulse Ox 99% on R/A; Weight 70.31 kg; ap3 Height 5 ft. 3 in. (160.02 cm); Pain 2/10; 18:34 Pulse 64; Pulse Ox 98% on R/A; ap3 19:38 Pulse 63; Resp 14; Pulse Ox 97% on R/A; kd3 18:04 Body Mass Index 27.46 (70.31 kg, 160.02 cm) ap3 Juno Coma Score: 18:34 Eye Response: spontaneous(4). Verbal Response: oriented(5). Motor Response: obeys ap3 commands(6). Total: 15. Trauma Score (Adult): 18:34 Eye Response: spontaneous(1); Verbal Response: oriented(1); Motor Response: obeys ap3 commands(2); Systolic BP: > 89 mm Hg(4); Respiratory Rate: 10 to 29 per min(4); [place] Score: 15; Trauma Score: 12 ED Course: 17:40 Patient arrived in ED. ap3 17:41 Ronni Quezada PA is PHCP. cp 17:41 Ronni Leyva MD is Attending Physician. cp 17:43 Triage completed. ap3 17:45 Arm band placed on right wrist. ap3 17:45 Patient has correct armband on for positive identification. Bed in low position. Call ap3 light in reach. Side rails up X2. Pulse ox on. NIBP on. Door closed. Noise minimized. 17:46 Jania Ferris, RN is Primary Nurse. ap3 18:02 CT Head C Spine In Process Unspecified. EDMS 18:03 PT-INR Sent. ap3 18:03 Ptt, Activated Sent. ap3 18:03 Basic Metabolic Panel Sent. ap3 18:03 CBC with Diff Sent. ap3 18:03 Type And Screen Sent. ap3 18:03 Inserted saline lock: 22 gauge in left forearm, using aseptic technique. Blood ap3 collected. 19:17 Patient maintains SpO2 saturation greater than 95% on room air. ap3 19:38 No provider procedures requiring assistance completed. IV discontinued, intact, kd3 bleeding controlled, No redness/swelling at site. Pressure dressing applied. 19:39 Thermoregulation: warm blanket given to patient. kd3 Administered Medications: 19:14 Drug: Tylenol 650 mg Route: PO; vg1 19:40 Follow up: Response: No adverse reaction; Pain is decreased kd3 Medication: 17:45 VIS not applicable for this client. ap3 Output: 19:39 Urine: 150ml (Voided); Total: 150ml. kd3 Outcome: 19:26 Discharge ordered by . cp 19:39 Discharged to home via wheelchair. kd3 19:39 Condition: stable 19:39 Discharge instructions given to patient, family, Instructed on discharge instructions, follow up and referral plans. Demonstrated understanding of instructions, follow-up care. 19:39 Patient's length of stay was not longer than 2 hours. kd3 19:52 Patient left the ED. kd3 Signatures: Dispatcher [employer] EDMS Ronni Quezada PA PA cp Prokisch, Amanda RN RN ap3 Halie Cox RN RN vg1 Pura Nguyen RN RN kd3 Corrections: (The following items were deleted from the chart) 19:16 19:15 NO uncontrolled hemorrhage observed ap3 ap3 19:17 19:15 Breathing/Chest: Spontaneous respiratory effort, equal unlabored respirations, ap3 breath sounds clear bilaterally, regular pattern, symmetrical chest rise and fall. ap3 19:17 19:15 Circulation: No external hemorrhage present. Regular and strong central pulse, ap3 skin warm/dry/normal color. ap3 19:17 19:15 Disability Client is alert. ap3 ap3 19:17 19:15 Exposure/Environment: There is no evidence of uncontrolled external bleeding. A ap3 warming method has been applied: A warm blanket has been provided to the patient. ap3 19:17 19:15 NO uncontrolled hemorrhage observed ap3 ap3
--- NOTE | 2022-02-26 19:27 | EDPHYS ---
Physician Documentation [facility] Name: Eliana Hayden Age: 86 yrs Sex: Female : 1935 Arrival Date: 02/26/2022 Time: 17:40 Bed 2 Private MD: ED Physician Ronni Leyva HPI: 02/26 17:50 This 86 yrs old Female presents to ER via EMS with complaints of Fall Injury. cp 17:50 Details of fall: The patient fell from an upright position, while walking. Onset: The cp symptoms/episode began/occurred just prior to arrival. Associated injuries: The patient sustained injury to the head, contusion, hematoma. 17:50 Patient presents to ED after sustaining fall at home. Patient reports losing balance cp and falling backward onto buttocks and then striking back of head against ground. No reported LOC. Historical: - Allergies: 17:44 atorvastatin calcium; ap3 17:44 Codeine; ap3 17:44 Demerol; ap3 17:44 meperidine HCl; ap3 17:44 zolpidem tartrate; ap3 - PMHx: 17:44 Depression; Diabetes - NIDDM; High Cholesterol; Hypertension; Hypothyroidism; UTI; ap3 - Immunization history:: Client reports receiving the 2nd dose of the Covid vaccine. - Social history:: Smoking status: Patient denies any tobacco usage or history of. - Immunization history: Last tetanus immunization: - up to date. ROS: 17:55 Eyes: Negative for injury, pain, redness, and discharge. cp 17:55 Constitutional: Negative for body aches, chills, fever, poor PO intake. 17:55 ENT: Negative for drainage from ear(s), ear pain, sore throat, difficulty swallowing, difficulty handling secretions. 17:55 Neck: Negative for pain with movement, pain at rest, stiffness. 17:55 Cardiovascular: Negative for chest pain, palpitations. 17:55 Respiratory: Negative for cough, shortness of breath, wheezing. 17:55 Abdomen/GI: Negative for abdominal pain, nausea, vomiting, diarrhea, constipation. 17:55 Back: Negative for pain at rest, pain with movement. 17:55 Neuro: Positive for headache, Negative for altered mental status, loss of consciousness, syncope, weakness. 17:55 All other systems are negative. Exam: 18:00 Constitutional: The patient appears in no acute distress, alert, awake, cp non-diaphoretic, non-toxic, well developed, well nourished. 18:00 Head/face: Noted is swelling, that is mild, of the left occipital area and right cp occipital area, tenderness, that is mild, of the left occipital area and right occipital area. 18:00 Eyes: Periorbital structures: appear normal, Pupils: equal, round, and reactive to light and accomodation, Extraocular movements: intact throughout, Conjunctiva: normal, no exudate, no injection, Sclera: no appreciated abnormality, Lids and lashes: appear normal, bilaterally. 18:00 ENT: External ear(s): are unremarkable, Nose: is normal, Mouth: Lips: moist, Oral mucosa: moist, Posterior pharynx: Airway: no evidence of obstruction, patent. 18:00 Neck: C-spine: C-collar placed SKIP TRACER. 18:00 Chest/axilla: Inspection: normal, Palpation: is normal, no crepitus, no tenderness. 18:00 Cardiovascular: Rate: normal, Rhythm: regular. 18:00 Respiratory: the patient does not display signs of respiratory distress, Respirations: normal, no use of accessory muscles, no retractions, labored breathing, is not present, Breath sounds: are clear throughout, no decreased breath sounds, no stridor, no wheezing. 18:00 Abdomen/GI: Inspection: abdomen appears normal, Palpation: abdomen is soft and non-tender, in all quadrants. 18:00 Back: pain, is absent, ROM is normal. 18:00 Neuro: Orientation: to person, place \T\ time. Mentation: is normal, Motor: moves all fours, strength is normal, Sensation: is normal. 18:16 ECG was reviewed by the Attending Physician. cp Vital Signs: 18:04 BP 107 / 92; Pulse 63; Resp 17; Temp 97.8(O); Pulse Ox 99% on R/A; Weight 70.31 kg; ap3 Height 5 ft. 3 in. (160.02 cm); Pain 2/10; 18:34 Pulse 64; Pulse Ox 98% on R/A; ap3 19:38 Pulse 63; Resp 14; Pulse Ox 97% on R/A; kd3 18:04 Body Mass Index 27.46 (70.31 kg, 160.02 cm) ap3 [place] Coma Score: 18:34 Eye Response: spontaneous(4). Verbal Response: oriented(5). Motor Response: obeys ap3 commands(6). Total: 15. Trauma Score (Adult): 18:34 Eye Response: spontaneous(1); Verbal Response: oriented(1); Motor Response: obeys ap3 commands(2); Systolic BP: > 89 mm Hg(4); Respiratory Rate: 10 to 29 per min(4); Juno Score: 15; Trauma Score: 12 MDM: 17:43 Patient medically screened. 18:00 Differential diagnosis: closed head injury, contusion, fracture, laceration, multiple cp trauma. 19:25 Data reviewed: vital signs, nurses notes, lab test result(s), EKG, radiologic studies, cp CT scan. 19:25 I considered the following discharge prescriptions or medication management in the emergency department Medications were administered in the Emergency Department. See MAR. Test considered but Not performed: Other Details CT trauma gram. Care significantly affected by the following chronic conditions: Diabetes, Hypertension. Care significantly affected by the following Social Determinants of Health: Patient resides by herself but is accompanied to ED by sons who will continue to monitor patient at home. 02/26 17:42 Order name: Basic Metabolic Panel; Complete Time: 18:40 02/26 18:41 Interpretation: Normal except: GLUC 147; BUN 20; CRE 1.16; GFR 45. 02/26 17:42 Order name: CBC with Diff; Complete Time: 18:40 02/26 18:41 Interpretation: Normal except: RBC 5.95; MCV 66.6; MCH 21.1; MCHC 31.7; RDW 19.2. 02/26 17:42 Order name: Type And Screen; Complete Time: 19:23 02/26 17:42 Order name: PT-INR; Complete Time: 18:40 02/26 18:42 Interpretation: INR <p>1.27</p>; Reviewed. 02/26 17:42 Order name: Ptt, Activated; Complete Time: 18:40 02/26 18:41 Interpretation: Abnormal: PTT 53.4. 02/26 18:20 Order name: CBC Smear Scan; Complete Time: 18:40 EDMS 02/26 18:42 Interpretation: Reviewed. 02/26 17:42 Order name: CT Head C Spine; Complete Time: 18:14 cp 02/26 17:42 Order name: Labs collected and sent; Complete Time: 18:03 cp 02/26 17:42 Order name: EKG; Complete Time: 17:43 cp 02/26 17:42 Order name: EKG - Nurse/Tech; Complete Time: 18:16 cp 02/26 19:42 Order name: ABO/RH no charge EDMS EC:16 Rate is 63 beats/min. Rhythm is regular with Ventricular paced. NC interval is cp prolonged at 230 msec. QRS interval is prolonged at 164 msec. QT interval is normal. Interpreted by me. Reviewed by me. Administered Medications: 19:14 Drug: Tylenol 650 mg Route: PO; vg1 19:40 Follow up: Response: No adverse reaction; Pain is decreased kd3 Disposition Summary: 02/26/22 19:26 Discharge Ordered Location: Home cp Problem: new cp Symptoms: have improved cp Condition: Stable cp Diagnosis - Contusion of unspecified part of head, initial encounter cp Followup: cp - With: Emergency Department - When: As needed - Reason: Worsening of condition Discharge Instructions: - Discharge Summary Sheet cp - Facial or Scalp Contusion cp - Head Injury, Adult cp - Hematoma cp Forms: - Medication Reconciliation Form cp - Thank You Letter cp - Antibiotic Education cp - Prescription Opioid Use cp Signatures: Dispatcher [employer] EDMS Ronni Quezada PA PA cp Jania Ferris RN RN ap3 Halie Cox RN RN vg1 Pura Nguyen, RN RN kd3 Corrections: (The following items were deleted from the chart) 02/27 02:02/26 17:25 Constitutional: Negative for body aches, chills, fever, poor PO intake, cp cp 02/27 02:02/26 17:25 Cardiovascular: Negative for chest pain, palpitations, cp cp 02/27 02:02/26 17:25 Respiratory: Negative for cough, shortness of breath, wheezing, cp cp 02/27 02:02/26 17:25 Eyes: Negative for injury, pain, redness, and discharge, cp cp 02/27 02:02/26 17:25 ENT: Negative for drainage from ear(s), ear pain, sore throat, difficulty cp swallowing, difficulty handling secretions, cp 02/27 01:02/26 17:25 Neck: Negative for pain with movement, pain at rest, stiffness, cp cp 02/27 01:02/26 17:25 Neuro: Positive for headache, Negative for altered mental status, loss of cp consciousness, syncope, weakness, cp 02/27 17:25 Abdomen/GI: Negative for abdominal pain, nausea, vomiting, diarrhea, cp constipation, cp 02/27 17:25 Back: Negative for pain at rest, pain with movement, cp cp 02/27 01:02/26 17:25 All other systems are negative, cp cp
[2022-02-26 20:01] VITALS: BP 107/92; TEMP 97.8
[2022-02-26 20:12] VITALS: O2SAT 97
--- NOTE | 2022-02-27 10:48 | EKG ---
Test Date: 2022-02-26 Test Time: 18:11:16 Emergency Medicine: MARY MEASUREMENT RESULTS: Intervals: Rate: 63 CT: 230 QRSD: 164 QT: 486 QTc: 497 [place]: P: 26 CT: 230 QRS: -68 T: 126 INTERPRETIVE STATEMENTS: Atrial-sensed ventricular-paced rhythm with prolonged AV conduction Abnormal ECG Compared to ECG 12/04/2020 12:43:04 Sinus rhythm no longer present First degree AV block no longer present Left-axis deviation no longer present Left bundle-branch block no longer present Electronically Signed On 02-27-22 10:46:34 [employer] by [place]
== END 2022-02-26 19:52 | disposition home or self-care (01) ==
LOC: ER 17:15
DX: S00.83XA Contusion of other part of head, initial encounter (principal); I10 Essential (primary) hypertension; E11.9 Type 2 diabetes mellitus without complications; Z88.5 Allergy status to narcotic agent; Z88.8 Allergy status to other drugs, medicaments and biological substances
CPT/HCPCS: 36415; 70450; 72125; 80048; 85025; 85610; 85730; 86850; 86900; 86901; 93005; 99284

== ENCOUNTER 2023-06-05 00:16 | Inpatient (IN) | payer OTHER ==
[2023-06-05 00:37] LABS: Absolute Lymphocytes (CBC) 0.7 K/uL (0.7-4.9); Absolute Monocytes 0.7 K/uL (0.1-1.3); Basophils % 0.3 % (0-1.3); Eosinophils % 0.5 % (0-4.4); Hematocrit 31.1 % (36.0-45.0); Hemoglobin 10.1 g/dL (12.0-15.0); Lymphocytes % 7.8 % (15.3-44.8); MCH 23.4 pg (27.0-35.0); MCHC 32.3 g/dL (32.0-36.0); MCV 72.4 fL (80-100); MPV 8.6 fL (7.6-11.3); Monocytes % 7.2 % (3.3-12.3); Neutrophils % 84.2 % (41.7-73.7); Nucleated Red Blood Cells % 0.1 % (0-0); Platelets 189 thou/uL (152-406); Red Cell Distribution Width 18.2 % (12.1-15.2)
[2023-06-05 00:55] LABS: Anion Gap 12.1 mEq/L (5.0-15.0); Potassium 4.1 mEq/L (3.5-5.1)
[2023-06-05 00:59] LABS: Troponin High Sensitivity 89.9 pg/mL (<58.9)
[2023-06-05] MEDS ORDERED: ASPIRIN 81 MG CHEWABLE TABLET ONE (01:13)
[2023-06-05] MEDS ORDERED: LORazepam 2 MG/ML VIAL ONE (01:13)
[2023-06-05] MEDS ORDERED: FUROSEMIDE 40 MG/4 ML VIAL ONE (01:30)
--- NOTE | 2023-06-05 01:33 | EDPHYS ---
Physician Documentation [facility] Name: Eliana Hayden Age: 87 yrs Sex: Female : 1935 Arrival Date: 06/05/2023 Time: 00:16 Bed 3 Private MD: ED Physician Shivam Shankar HPI: 06/04 00:30 This 87 yrs old Female presents to ER via EMS with complaints of sob. ec2 00:30 Patient arrives today for shortness of breath and chest tightness. Patient reports ec2 several days of symptoms. Patient reports lower extremity edema as well. No known diagnosis of CHF. Patient reports that she has a pacemaker in place.. Historical: - Allergies: 00:30 atorvastatin calcium; ha1 00:30 Codeine; ha1 00:30 Demerol; ha1 00:30 meperidine HCl; ha1 00:30 zolpidem tartrate; ha1 00:30 Aspirin; ha1 - Home Meds: 00:30 amlodipine oral [Active]; Atenolol Oral [Active]; fenofibrate 160 mg Oral tab once ha1 daily [Active]; sertraline 100 mg Oral tab once daily [Active]; calcium carbonate 600 mg (1 Oral tab 1200 mg daily [Active]; - PMHx: 00:30 Depression; Diabetes - NIDDM; High Cholesterol; Hypertension; Hypothyroidism; UTI; ha1 pacemaker; - Immunization history:: Adult Immunizations up to date, Client reports receiving the 2nd dose of the Covid vaccine, Last tetanus immunization: up to date Pneumococcal vaccine is up to date, Flu vaccine is up to date. - Infectious Disease History:: Denies. - Social history:: Smoking status: Patient denies any tobacco usage or history of. ROS: 00:30 Constitutional: as per hpi ec2 Exam: 00:30 Constitutional: GEN: NAD Head: atraumatic Eyes: EOMI Ears: External ears are ec2 normal. CV: regular rate, 3+ bilateral lower extremity edema. LUNGS: no respiratory distress ABD: non-distended SKIN: no evidence of rashes MSK: no evidence of trauma NEURO: moves all extremities equally Vital Signs: 00:24 BP 143 / 64; Pulse 97; Resp 20 S; Temp 98.4; Pulse Ox 98% on 2 lpm NC; Weight 72.57 kg; ha1 Height 5 ft. 3 in. ; 01:28 BP 143 / 64; Pulse 99; Pulse Ox 100% on BiPAP; tm6 02:00 BP 171 / 95; Pulse 106; Resp 20 S; Pulse Ox 100% on BiPAP; ha1 02:59 BP 155 / 85; Pulse 94; Pulse Ox 99% on 5 lpm NC; tm6 00:24 Body Mass Index 28.34 (72.57 kg, 160.02 cm) [facility] MDM: 00:25 Patient medically screened. ec2 00:30 Data reviewed: vital signs. ED course: Patient arrives today for evaluation of ec2 shortness of breath and chest tightness. Examination remarkable for edematous individual is otherwise in no acute respiratory distress who is on oxygen for comfort with saturations in the mid 90s. EKG independently reviewed and interpreted by me, shows normal sinus rhythm, left bundle branch block, does have pacemaker with paced rhythm. Will obtain lab work, chest x-ray. Evaluating for ACS, volume overload doubt pneumonia. 01:00 ED course: Metabolic profile shows slight hyperglycemia, renal dysfunction with a ec2 creatinine 1.27 and GFR 40. CBC shows slight anemia. Troponin is slightly elevated at 90. Will give patient full dose of aspirin. . 01:28 ED course: Chest x-ray independently reviewed and interpreted by me, shows vascular ec2 congestion, consistent clinically with the patient's volume overload status with her lower extremity edema. Patient complaining of persistent shortness of breath on the oxygen, placed on BiPAP with improvement in her saturations and her breathing discomfort. Also given 0.5 mg of Ativan to help with her anxiety. Ultimately suspect patient is volume overload causing her respiratory complaints. Likely component of undiagnosed heart failure.. 06/04 00:25 Order name: Basic Metabolic Panel ec2 06/04 00:25 Order name: CBC with Diff; Complete Time: 01:00 ec2 06/04 00:25 Order name: Troponin HS ec2 06/04 00:30 Order name: BNP ec2 06/04 01:38 Order name: NT PRO-BNP EDMS 06/04 01:47 Order name: CBC with Automated Diff EDMS 06/04 01:47 Order name: Comprehensive Metabolic Panel EDMS 06/04 04:42 Order name: NT PRO-BNP EDMS 06/04 00:25 Order name: XRAY Chest (1 view) ec2 06/04 01:47 Order name: CONS Physician Consult EDMS 06/04 00:25 Order name: Cardiac monitoring; Complete Time: 00: ec2 06/04 00:25 Order name: EKG - Nurse/Tech; Complete Time: 00: ec2 06/04 00:25 Order name: IV Saline Lock; Complete Time: 00: ec2 06/04 00:25 Order name: Labs collected and sent; Complete Time: : ec2 06/04 00:25 Order name: O2 Per Protocol; Complete Time: : ec2 06/04 00:25 Order name: O2 Sat Monitoring; Complete Time: : ec2 Administered Medications: 01:29 Drug: Ativan IVP 0.5 mg IVP once Route: IVP; Site: right antecubital; tm6 01:53 Drug: Furosemide IVP 40 mg IVP once; give over 2 minutes Route: IVP; Site: left tm6 antecubital; 02:45 Drug: Aspirin PO Chewable Tablet 324 mg PO once; 81 mg tablets x 4 {Note: patient tm6 stated aspirin makes her stomach hurt.} Route: PO; 04:56 Drug: Acetaminophen PO 1000 mg PO once Route: PO; tm6 Disposition Summary: 06/05/23 01:33 Hospitalization Ordered Notes: Hospitalization Status: Inpatient Admission ec2 Provider: Mayra Frost Condition: Stable ec2 Problem: an acute exacerbation ec2 Symptoms: have improved ec2 Bed/Room Type: Standard ec2 [facility]06[facility]23 08:15[facility] eb Room Assignment: [facility](06/05/23 08:15) eb Diagnosis - Volume Overload ec2 Forms: - Medication Reconciliation Form ec2 - SBAR form ec2 - Leadership Thank You Letter ec2 Critical care time excluding procedures: 01:28 Critical care time: Bedside Care: 30 minutes, Consultation: 5 minutes. Total time: 35 ec2 minutes Signatures: Dispatcher [employer] Teresa Herrera RN Marin Gaona RN RN [id number] Atiya Orta Heidy, RN RN ha1 Shivam Shankar MD MD ec2 Fredo Manning RN RN tm6 Corrections: (The following items were deleted from the chart) 00:26 00:26 Chest Single View+RAD.RAD.BRZ ordered. EDMS EDMS 06:27 01:33 Telemetry/MedSurg (Inpatient) ec2 jb4 06:27 01:33 ec2 jb4 08:15 06:27 [facility] ER HOLD jb4 hb 08:15 06:27 ERHOLD- jb4 hb 08:15 08:15 Telemetry/MedSurg (Inpatient) hb eb 08:15 08:15 418 hb eb
--- NOTE | 2023-06-05 01:33 | ER ---
Nurse's Notes [facility] Name: Eliana Hayden Age: 87 yrs Sex: Female : 1935 Arrival Date: 06/05/2023 Time: 00:16 Bed 3 Private MD: Diagnosis: Volume Overload Presentation: 06/04 00:24 Chief complaint: EMS states: She reports having chest pain for the past few days but ha1 tonight her pain has got worse. Coronavirus screen: Vaccine status:. Ebola Screen: No symptoms or risks identified at this time. Initial Sepsis Screen: Does the patient meet any 2 criteria? No. Patient's initial sepsis screen is negative. Does the patient have a suspected source of infection? No. Patient's initial sepsis screen is negative. Risk Assessment: Do you want to hurt yourself or someone else? Patient reports no desire to harm self or others. Onset of symptoms was June 05, 2023. 00:24 Method Of Arrival: EMS: [facility] ha1 00:24 Acuity: JANINA 2 ha1 Triage Assessment: 00:24 General: Appears uncomfortable, Behavior is calm, cooperative. Pain: Complains of pain ha1 in chest Pain does not radiate. Pain currently is 2 out of 10 on a pain scale. Quality of pain is described as burning, pressure, Pain began 2-3 days ago. Neuro: Level of Consciousness is awake, alert, obeys commands, Oriented to person, place, time, situation. Cardiovascular: Reports chest pain, palpitations, Heart tones S1 S2 present Capillary refill < 3 seconds Patient's skin is warm and dry. Respiratory: Airway is patent Respiratory effort is even, unlabored, Respiratory pattern is regular, symmetrical. GI: No signs and/or symptoms were reported involving the gastrointestinal system. Abdomen is round non-distended. : Reports currently taking antibiotics for UTI. Derm: Skin is pink, warm \\T\\ dry. Musculoskeletal: Circulation, motion, and sensation intact. 00:24 Cardiovascular: Rhythm is ventricular pacer. ha1 Historical: - Allergies: 00:30 atorvastatin calcium; ha1 00:30 Codeine; ha1 00:30 Demerol; ha1 00:30 meperidine HCl; ha1 00:30 zolpidem tartrate; ha1 00:30 Aspirin; ha1 - Home Meds: 00:30 amlodipine oral [Active]; Atenolol Oral [Active]; fenofibrate 160 mg Oral tab once ha1 daily [Active]; sertraline 100 mg Oral tab once daily [Active]; calcium carbonate 600 mg (1 Oral tab 1200 mg daily [Active]; - PMHx: 00:30 Depression; Diabetes - NIDDM; High Cholesterol; Hypertension; Hypothyroidism; UTI; ha1 pacemaker; - Immunization history:: Adult Immunizations up to date, Client reports receiving the 2nd dose of the Covid vaccine, Last tetanus immunization: up to date Pneumococcal vaccine is up to date, Flu vaccine is up to date. - Infectious Disease History:: Denies. - Social history:: Smoking status: Patient denies any tobacco usage or history of. Screenin:38 [facility] ED Fall Risk Assessment (Adult) History of falling in the last 3 months, ha1 including since admission Yes- single mechanical fall (1 pt) Confusion or Disorientation No (0 pts) Intoxicated or Sedated No (0 pts) Impaired Gait Yes (1 pt) Mobility Assist Device Used Yes (1 pt) Altered Elimination No (0 pt) Score/Fall Risk Level 3 or more points = High Risk Oriented to surroundings, Maintained a safe environment, Educated pt \\T\\ family on fall prevention, incl call for assistance when getting out of bed, Hourly rounding (assess needs \\T\\ fall precautionary measures) done. Abuse screen: Denies threats or abuse. Denies injuries from another. Nutritional screening: No deficits noted. Tuberculosis screening: No symptoms or risk factors identified. Assessment: 00:24 Reassessment: see triage assessment. ha1 01:01 Reassessment: Patient and/or family updated on plan of care and expected duration. Pain ha1 level reassessed. reports SOB Dr. Shankar notified. 01:06 Reassessment: respiratory called to place patient on bipap. Respiratory: Reports tm6 shortness of breath air hunger labored breathing patient states "I can't breathe! I am being smothered!". 01:29 Respiratory: Patient placed on BiPAP:. tm6 04:14 Reassessment:. tm6 Vital Signs: 00:24 BP 143 / 64; Pulse 97; Resp 20 S; Temp 98.4; Pulse Ox 98% on 2 lpm NC; Weight 72.57 kg; ha1 Height 5 ft. 3 in. ; 01:28 BP 143 / 64; Pulse 99; Pulse Ox 100% on BiPAP; tm6 02:00 BP 171 / 95; Pulse 106; Resp 20 S; Pulse Ox 100% on BiPAP; ha1 02:59 BP 155 / 85; Pulse 94; Pulse Ox 99% on 5 lpm NC; tm6 00:24 Body Mass Index 28.34 (72.57 kg, 160.02 cm) 1 ED Course: 00:24 Patient arrived in ED. ha1 00:24 Arm band placed on right wrist. ha1 00:24 EKG completed in triage. Results shown to MD. ha1 00:24 Patient has correct armband on for positive identification. Placed in gown. Bed in low ha1 position. Call light in reach. Side rails up X 1. 00:25 Shivam Shankar MD is Attending Physician. ec2 00:30 Triage completed. ha1 00:33 Fredo Manning, RN is Primary Nurse. tm6 00:33 Basic Metabolic Panel Sent. tm6 00:33 CBC with Diff Sent. tm6 00:33 Troponin HS Sent. tm6 00:33 BNP Sent. tm6 00:33 Initial lab(s) drawn, by me, sent to lab. EKG done, by ED staff, reviewed by Shivam Shankar MD. Inserted saline lock: 18 gauge in right antecubital area, using aseptic technique. 01:08 XRAY Chest (1 view) In Process Unspecified. EDMS 01:28 O2 via bipap. tm6 01:28 Provided Education on: plan of care. Client placed on continuous cardiac and pulse tm6 oximetry monitoring. NIBP monitoring applied. hall monitor on. Pulse ox on. NIBP on. Noise minimized. Warm blanket given. Repositioned patient. Cleaned of incontinence. 01:32 Mayra Frost MD is Hospitalizing Provider. ec2 01:40 Inserted saline lock: 22 gauge in left forearm, using aseptic technique. ty 02:26 Diaz cath inserted, using sterile technique, 16 Fr., by me, balloon inflated, returned tm6 clear yellow urine. Patient tolerated well. 02:58 Oxygen administration via nasal cannula \\T\\ 5L/min. tm6 04:15 No provider procedures requiring assistance completed. Patient admitted, IV remains in tm6 place. 06:20 Shivam Shankar MD is Attending Physician. ec2 Administered Medications: 01:29 Drug: Ativan IVP 0.5 mg IVP once Route: IVP; Site: right antecubital; tm6 01:53 Drug: Furosemide IVP 40 mg IVP once; give over 2 minutes Route: IVP; Site: left tm6 antecubital; 02:45 Drug: Aspirin PO Chewable Tablet 324 mg PO once; 81 mg tablets x 4 {Note: patient tm6 stated aspirin makes her stomach hurt.} Route: PO; 04:56 Drug: Acetaminophen PO 1000 mg PO once Route: PO; tm6 Medication: 01:29 VIS not applicable for this client. tm6 Outcome: 01:33 Decision to Hospitalize by Provider. ec2 04:15 Admitted to ER Hold. Please see [facility] for further documentation. tm6 04:15 Condition: stable 04:15 Instructed on the need for admit, Demonstrated understanding of instructions, 09:19 Patient left the ED. bp Signatures: Dispatcher [employer] Charbel Noriega RN RN bp Elma Lauren RN RN ha1 Shivam Shankar MD MD ec2 Fredo Manning RN RN tm6 Dylan Rodriguez
[2023-06-05 04:19] LABS: Absolute Lymphocytes (CBC) 0.7 K/uL (0.7-4.9); Absolute Monocytes 0.7 K/uL (0.1-1.3); Absolute Neutrophil 8.3 K/uL (1.8-8.0); Basophils % 0.5 % (0-1.3); Eosinophils % 0.2 % (0-4.4); Hematocrit 29.3 % (36.0-45.0); Hemoglobin 9.6 g/dL (12.0-15.0); Lymphocytes % 7.1 % (15.3-44.8); MCH 23.6 pg (27.0-35.0); MCHC 32.6 g/dL (32.0-36.0); MCV 72.4 fL (80-100); MPV 8.2 fL (7.6-11.3); Monocytes % 7.2 % (3.3-12.3); Nucleated Red Blood Cells % 0.2 % (0-0); Platelets 186 thou/uL (152-406); RBC Red Blood Cell Count 4.05 M/uL (3.86-4.86); Red Cell Distribution Width 17.9 % (12.1-15.2)
[2023-06-05 04:41] LABS: Albumin/Globulin Ratio 0.7 (1.1-1.8); Bilirubin Total 0.5 mg/dL (0.2-1.0); Globulin 4.2 g/dL (2.3-3.5); Protein, Total 7.2 g/dL (6.4-8.2)
[2023-06-05] MEDS ORDERED: ACETAMINOPHEN 500 MG TAB ONE (04:46)
[2023-06-05 04:49] VITALS: BMI 28.1
[2023-06-05] MEDS ORDERED: GLUCAGON 1 MG/VIAL IM PRN (09:53)
[2023-06-05] MEDS ORDERED: D50W 25 GM/50 ML SYRINGE IV PRN (09:53)
[2023-06-05] MEDS: APIXABAN 5 MG TABLET PO SCH (11:18)
[2023-06-05] MEDS: INSULIN REGULAR (HUMAN) 100 UNIT/ML SQ SCH (11:30)
--- NOTE | 2023-06-05 12:43 | HP ---
Date of Admission: 06/05/2023 Chief Complaint: Shortness of breath. History Of Present Illness: This is an 87-year-old very pleasant female patient who came into emerge ncy room with few days history of worsening shortness of breath and leg edema. The patient is having some dry cough without any expectoration, no fever and she felt like there was some heaviness, press ure type of feeling in her chest associated with shortness of breath. Her symptoms got worse yesterd ay, so she came into ER. After she was evaluated in the ER, she was admitted to the hospital with co ngestive heart failure problem. I saw her this morning, she was in the emergency room. Her son was with her at bedside. The patient received a dose of IV Lasix since she came to ER and feels somewhat better. She was on BiPAP during nighttime, but this morning when I saw her, she was not on any kind of BiPAP. Allergies: AMOXICILLIN CAUSING RASH AND ITCHING. SULFA CAUSING RASH. ATORVASTATIN CAUSING JOINT PA IN. AMBIEN CAUSING DIZZINESS. CODEINE DETAILS UNKNOWN. DEMEROL CAUSING BRADYCARDIA AND METFORMIN C AUSED KIDNEY FAILURE. Medications: Albuterol inhaler 2 puffs 4 times a day as needed for shortness of breath, Eliquis 5 mg 2 times a day, Ferrocite 324 mg daily, gabapentin 800 mg 4 times a day, gemfibrozil 600 mg 2 times a day, glimepiride 4 mg 2 times a day, Lantus 45 units subcutaneous injection daily at bedtime, levoce tirizine 5 mg daily at bedtime, levothyroxine 75 mcg daily, metoprolol succinate 25 mg 2 times a day, omeprazole 20 mg daily, pentoxifylline 400 mg 2 times a day, rosuvastatin 20 mg daily at bedtime, Ja suma 100 mg daily in the morning with breakfast. Review of Systems: Cardiovascular: As mentioned above. Respiratory: As mentioned above. All other systems reviewed and negative. Past Medical History: Type 2 diabetes mellitus, anemia, diabetes mellitus with chronic kidney diseas e, paroxysmal atrial fibrillation, osteoarthritis at multiple sites, insomnia, mixed hyperlipidemia, hypothyroidism, hypomagnesemia, coronary artery disease, long-term use of anticoagulant therapy, hype rtension, mixed urinary incontinence, diverticulosis, diabetes mellitus with peripheral neuropathy, d iabetes mellitus with peripheral vascular disease, pulmonary hypertension, peripheral vascular diseas e, chronic kidney disease stage 3a, depression, allergic rhinitis. Past Surgical History: Cataract surgery, tonsillectomy, pacemaker placement May 01, 2019, cholecys tectomy, appendectomy, hysterectomy, and ankle surgery. Family History: Father , had pneumonia. Mother , had congestive heart failure and diabetes. Brother , had coronary artery disease and myocardial infarction. Sister , had breast cance r. Social History: Negative for smoking and alcohol use. Physical Examination: Vital Signs: Last temperature this morning, 97.5; pulse 66; respiratory rate 17; blood pressure 119/ 69; oxygen saturation 100%. Height 5 feet 3 inches, weight 159 pounds. General: Awake, alert, oriented, not in distress. HEENT: Head atraumatic, normocephalic. Conjunctivae nonerythematous. Sclerae white. Mouth, no thr ush or edema noted. Ears/Nose, no mass, lesion, discharge noted. Neck: Supple. No JVD, lymph nodes, bruit, thyromegaly noted. Lungs: Presence of rales noted in both lower 2/3 lung bowen. Not using accessory muscles of respir ation. Heart: Normal heart sounds, no murmur or gallop. Abdomen: Soft, bowel sounds normal. No guarding, rigidity, tenderness, mass, hepatosplenomegaly, dis tention, or bruit noted. Extremities: Bilateral grade 2 pedal edema extending up to both thighs. Skin: No rash, ulcer, cellulitis. Lymphatics: No lymph node enlargement in neck, supraclavicular, infraclavicular region. Neuro: No focal neurological deficit. Chest: Unremarkable. External Genitalia: Deferred. Rectal: Deferred. Laboratory Data: Chest x-ray shows increased lung markings in both lungs consistent with congestive heart failure. Last night, WBC 9.4, hemoglobin 10.1, platelets 189. This morning, WBC 9.7, hemoglob in 9.6, platelets 186. Last night, sodium 136, potassium 4.1, chloride 105, bicarb 23, BUN 18, creat inine 1.27, glucose 339. Troponin 89.9. ProBNP 1141. This morning, sodium 137, potassium 4, chlori de 104, bicarb 26, BUN 20, creatinine 1.20, glucose 316. Liver function tests unremarkable. ProBNP 1892. Impression: 1.Congestive heart failure, acute, diastolic. 2.Chronic kidney disease, stage 3a. 3.Anemia, unspecified. 4.Hypertension. 5.Mixed hyperlipidemia. 6.Coronary artery disease. 7.Peripheral vascular disease. 8.Diabetes mellitus with chronic kidney disease. 9.Diabetes mellitus with peripheral neuropathy. 10.Diabetes mellitus with peripheral vascular disease. 11.Paroxysmal atrial fibrillation. 12.Chronic anticoagulation therapy. 13.Hypothyroidism. Plan: We will go ahead and admit patient to hospital for further evaluation and management of this david benitez. The patient is appropriate for inpatient and [facility] She received 1 dose of Lasix in the emergency room. We will continue Lasix 40 mg IV 2 times a da y and monitor intake, output, daily weight. We will monitor renal function and electrolytes with blo od work tomorrow. Get echo with Doppler. Last echocardiogram had shown normal ejection fraction wit h diastolic dysfunction. We will consult Cardiology. Elevated troponin is likely due to stress-isael lyric ischemia and not indicating true myocardial infarction. We will repeat cardiac enzymes. For cor onary artery disease, no need for further intervention except monitoring of cardiac enzymes and follo w up with mixing machine feeder. Diabetes will be managed with sliding scale insulin at this point per order and we will consider long-acting insulin depending on her blood sugar readings. For hypothyroidism, we will continue her levothyroxine and no need for further intervention. We will continue her gabape ntin for her peripheral neuropathy and no need for any further intervention on it. I did talk to her regarding advance directives in presence of her son and in the event of cardiopulmonary arrest, the patient does not want any heroic measures like CPR, defibrillation, ventilator support, and DNR order was written in the chart. Total time spent today minutes. MECCA/MODL Voice ID: [id number]
[2023-06-05] MEDS: GABAPENTIN 400 MG CAP PO SCH (12:51)
[2023-06-05] MEDS: FUROSEMIDE 40 MG/4 ML VIAL IV SCH (17:00)
[2023-06-05] MEDS: ASPIRIN EC 81 MG TAB PO ONE (17:12)
[2023-06-05] MEDS: PENTOXIFYLLINE ER 400 MG TAB PO SCH (21:06)
[2023-06-05] MEDS: METOPROLOL XL 25 MG TAB PO SCH (21:06)
[2023-06-05] MEDS: ROSUVASTATIN 10 MG TAB PO SCH (21:07)
[2023-06-05] MEDS: gemfibroziL 600 MG TAB PO SCH (21:07)
[2023-06-05] MEDS: TRAZODONE 50 MG TABLET PO SCH (22:00)
--- NOTE | 2023-06-05 22:03 | RAD REPORT ---
EXAM DESCRIPTION: RAD - Chest Single View - 06/05/2023 1:07 am CLINICAL HISTORY: CHEST PAIN COMPARISON: None TECHNIQUE: Single AP view of the chest. FINDINGS: Lung volumes diminished. Cardiac silhouette is normal in size. No pneumothorax. Patchy perihilar and bibasilar opacities. Probable small left effusion. No acute bony finding. IMPRESSION: 1. Patchy perihilar and bibasilar opacities, could be secondary to edema versus atypical infection. 2. Probable small left pleural effusion. Electronically signed by: Ira Aguirre MD 06/05/2023 01:28 AM CDT Due to temporary technical issues with the PACS/Fluency reporting system, reports are being signed by the in house radiologists without review as a courtesy to insure prompt reporting. The interpreting radiologist is fully responsible for the content of the report.
[2023-06-05] MEDS: ENOXAPARIN 60 MG/0.6 ML SQ SCH (22:59)
[2023-06-06] MEDS: GUAIFENESIN/DM 5 ML UCUP PO PRN (00:50)
[2023-06-06 05:48] LABS: Absolute Basophils 0.1 K/uL (0-0.5); Absolute Eosinophils 0.1 K/uL (0-0.5); Absolute Lymphocytes (CBC) 1.6 K/uL (0.7-4.9); Absolute Monocytes 0.7 K/uL (0.1-1.3); Absolute Neutrophil 4.4 K/uL (1.8-8.0); Basophils % 0.8 % (0-1.3); Eosinophils % 1.5 % (0-4.4); Hematocrit 27.9 % (36.0-45.0); MCH 23.4 pg (27.0-35.0); MCHC 32.3 g/dL (32.0-36.0); MCV 72.6 fL (80-100); MPV 8.5 fL (7.6-11.3); Neutrophils % 64.7 % (41.7-73.7); Platelets 194 thou/uL (152-406); RBC Red Blood Cell Count 3.84 M/uL (3.86-4.86); Red Cell Distribution Width 18.2 % (12.1-15.2)
[2023-06-06 06:07] LABS: Anion Gap 11.3 mEq/L (5.0-15.0); Magnesium 1.8 mg/dL (1.6-2.4); Potassium 3.3 mEq/L (3.5-5.1)
[2023-06-06] MEDS: LEVOTHYROXINE SOD 0.075 MG TAB PO SCH (06:23)
[2023-06-06] MEDS: PANTOPRAZOLE 40MG TABLET PO SCH (06:23)
[2023-06-06 06:32] LABS: Troponin High Sensitivity 966.8 pg/mL (<58.9)
[2023-06-06] MEDS: MAGNESIUM SULFATE 1 gm IVPB 1 GM/100 ML BAG IV ONE (10:26)
[2023-06-06] MEDS: ASPIRIN EC 81 MG TAB PO SCH (10:29)
[2023-06-06] MEDS: POTASSIUM 25 MEQ EFFERV TAB PO ONE (10:34)
--- NOTE | 2023-06-06 11:35 | PN ---
Date of Progress Note: 06/06/2023 Subjective: The patient was seen this morning for followup. No new complaints or problems reported by the patient. She had a bowel movement this morning. Denies any chest pain, shortness of breath. Complaining of dry cough. Vital signs reviewed. Intake output records reviewed. Physical Examination: HEENT: Examination unremarkable. Lungs: Bilateral good equal air entry. Presence of rales noted in lower half lung bwoen. Overall that is better today than yesterday. Not using accessory muscles of respiration. Heart: Sounds normal. Abdomen: Soft. Bowel sounds normal. No guarding, rigidity, tenderness, distention. Extremities: Bilateral leg edema present, but better today than yesterday. She has grade 2 pedal ed sandhya in lower half of both lower extremities today. Laboratory Data: White count 6.8, hemoglobin 9, platelets 194. Sodium 137, potassium 3.3, chloride 99, bicarb 30, BUN 29, creatinine 1.01, glucose 178, magnesium 1.8. Troponin this morning is 966.8 a nd this is the third set, her second set troponin was 3124.8, and this was yesterday and her initial troponin when she came into ER was 89.9. Impression: 1.Congestive heart failure, acute, diastolic. 2.Med-HW-yjhpjvuhz myocardial infarction. 3.Atrial fibrillation. 4.Chronic anticoagulation therapy. 5.Hypertension. 6.Diabetes mellitus. Plan: We will go ahead and continue current medication. [facility] We will continue antihypertensive medication per order. After we rec eived second set of troponin results yesterday, I discontinued her Eliquis and started her on Lovenox and aspirin 81 mg daily, which we will continue both of this and follow up with soil conservation aide. We wi ll get echo with Doppler tomorrow. She is complaining a lot of cough and we will go ahead and give s ome cough medication for symptomatic relief. We will repeat blood work tomorrow morning. I will see her tomorrow for followup. MECCA/MODL Voice ID: [id number] Report ID: [id number]
--- NOTE | 2023-06-06 17:11 | CON ---
Date of Consultation: 06/06/2023 Reason For Consultation: Chest pain and elevated troponin. History Of Present Illness: An 87-year-old female with past medical history of diabetes, anemia, chr onic kidney disease, atrial fibrillation, dyslipidemia, hypothyroidism, hypertension, peripheral vasc ular disease, and diabetic neuropathy, presented to the emergency room, few days of worsening shortne ss of breath and lower extremity edema along with chest tightness and denies having any nausea, vomit ing, or diaphoresis. No skin rash or headache. She was admitted with congestive heart failure, star justice on diuretics, and she feels significantly better, but not well yet. Past Medical History: As outlined above in the HPI. Medications: Refer to reconciliation sheet for detailed list. Allergies: CODEINE, ATORVASTATIN, , AND ZOLPIDEM. Family History: No premature coronary artery disease or cancer. Social History: She does not smoke or drink. Does not use any drugs. Review of Systems: All systems reviewed and they were negative except as mentioned in HPI. Physical Examination: Vital Signs: Reviewed. Head and Neck: Pupils are equal, reactive to light. Intact eye movements. No JVD. No cervical lym phadenopathy. Neck: Supple. Thyroid is not enlarged. Lungs: Clear to auscultation bilaterally. No rhonchi, rales, or crackles. No accessory muscle use. Heart: Regular. No extra sounds. Abdomen: Soft, nontender. Bowel sounds positive. No organomegaly. No rigidity or rebound. Extremities: No edema, clubbing, cyanosis. Intact pulses. Skin: No rashes. Neurologic: Alert, awake, oriented x3. No acute focal deficits appreciated. Investigations: Troponin peaked at 3124, down to 966. BUN 29, creatinine 1.0. Hemoglobin is 9. Assessment/recommendation: 1.Emm-JU-gtejxxtpa myocardial infarction. This could be still demand, but given the significant grant vation with some chest tightness, recommend coronary angiogram. Keep n.p.o. past midnight and do ezra orrow. 2.Chronic kidney disease. If the creatinine is stable by tomorrow, then we will plan to do the card iac catheterization as outlined above. 3.Hypertension. Blood pressure is acceptable control with liver management. 4.Dyslipidemia, on gemfibrozil. Add Lipitor and Crestor. Continue current management. SR/MODL Voice ID: [id number] Report ID: [id number]
[2023-06-07 04:12] LABS: Anion Gap 7.6 mEq/L (5.0-15.0); Magnesium 2.1 mg/dL (1.6-2.4); Potassium 3.6 mEq/L (3.5-5.1)
[2023-06-07 06:30] LABS: PT Prothrombin Time 14.8 SECONDS (9.5-12.5); PTT, Activated Partial Thromb 48.9 SECONDS (24.3-36.9); Protime INR 1.36
[2023-06-07] MEDS ORDERED: D10W 125 ML IV PRN (07:14)
[2023-06-07] MEDS: POTASSIUM CL SA 10 MEQ TAB PO ONE (09:05)
[2023-06-07] MEDS: NA CHLORIDE 0.9% 500 ML ONE (10:01)
[2023-06-07] MEDS ORDERED: LIDOCAINE 1% 20 ML MDV ONE (11:33)
[2023-06-07] MEDS ORDERED: HEPA 1000U/500MLS 2,000 UNIT/1,000 ML BAG IV ONE (11:33)
[2023-06-07] MEDS ORDERED: FENTANYL CITR 100 MCG/2 ML ONE (11:34)
[2023-06-07] MEDS ORDERED: HEPARIN 5000 UNIT/ML 1 ML VIAL ONE (11:34)
[2023-06-07] MEDS ORDERED: MIDAZOLAM HCL 2 MG/2 ML INJ ONE (11:34)
[2023-06-07] MEDS ORDERED: VERAPAMIL HCL 10 MG/4 ML VIAL IV ONE (11:34)
[2023-06-07] MEDS ORDERED: ATROPINE SULF 1 MG/10 ML SYR IV ONE (11:34)
[2023-06-07] MEDS ORDERED: HEPARIN 10,000 UNIT/10 ML VIAL IV ONE (11:35)
[2023-06-07] MEDS ORDERED: CLOPIDOGREL 75 MG TABLET ONE (11:35)
[2023-06-07] MEDS ORDERED: TICAGRELOR 90 MG TABLET PO ONE (11:35)
[2023-06-07] MEDS ORDERED: ASPIRIN 325 MG TAB ONE (11:35)
[2023-06-07] MEDS: ALBUTEROL 2.5 MG/3 ML NEB SOL NEB PRN (14:45)
[2023-06-07] MEDS: FUROSEMIDE 40 MG/4 ML VIAL IV ONE (15:13)
[2023-06-07] MEDS: FUROSEMIDE 20 MG/ 2ML VIAL ONE (15:17)
--- NOTE | 2023-06-07 17:29 | PN ---
Date of Progress Note: 06/07/2023 Procedures Performed: 1.Selective coronary angiogram. 2.Left heart catheterization. 3.PCI of critical ostial and proximal left circumflex stenosis. I used a 2.5 x 28 mm Synergy drug-e luting stent. Indication: Mjk-KZ-irqbysvly myocardial infarction. DICTATION ENDS HERE. SR/MODL Voice ID: [id number] Report ID: [id number]
--- NOTE | 2023-06-07 17:52 | PN ---
Date of Progress Note: 06/07/2023 Subjective: Patient was seen by bedside. No further chest pain while at rest. Review of Systems: Exertional chest pain with shortness of breath on exertion. No nausea, vomiting, or diarrhea. No ab dominal pain. No dysuria, polyuria, or urinary urgency. No skin rash or headache. All other system s were reviewed, they were negative. Objective: Vital Signs: Reviewed. Head and Neck: Pupils are equal and reactive to light. Intact eye movements. No JVD. No cervical lymphadenopathy. Neck is supple. Thyroid is not enlarged. Lungs: Clear to auscultation bilaterally. No rhonchi, wheezing, or crackles. No accessory muscle u se. Heart: Regular rate and rhythm. No extra sounds. Abdomen: Soft, nontender. Bowel sounds positive. No organomegaly. No masses or hernia. No rigidi ty or rebound. Extremities: There is no edema, clubbing, or cyanosis. Intact pulses. Skin: No rash. No nodule. Neurologic: Alert, awake, oriented x3. No acute focal deficits appreciated. Investigations: Labs were reviewed. Assessment And Recommendations: 1.Rxx-UZ-hsnoryxfc myocardial infarction, culprit was left circumflex, status post PCI. Continue Br ilinta 90 mg twice a day, aspirin 81 mg daily and now she can be switched to Plavix throughout this h ospital stay, but she needs to be loaded with it and which can be done tomorrow. 2.Hypertension. Blood pressure is controlled. 3.Dyslipidemia. Recommend high potency high-dose statin like Lipitor 40 mg q.h.s. SR/MODL Voice ID: [id number] Report ID: [id number]
[2023-06-07] MEDS: TICAGRELOR 90 MG TABLET PO SCH (20:07)
[2023-06-07] MEDS: MAGNES/ALUMIN/SIMET 30ML UCUP PO PRN (20:08)
[2023-06-07] MEDS: ONDANSETRON 4 MG/2 ML VIAL IV PRN (20:08)
[2023-06-07] MEDS: INSULIN GLARGINE 100 UNIT/ML SQ SCH (20:39)
--- NOTE | 2023-06-07 21:37 | PN ---
Date of Progress Note: 06/07/2023 Subjective: The patient was seen this morning for followup. No new complaints or problems reported except she is not getting much sleep at night because of the cough. She is also complaining of muscl e cramps, which is an ongoing problem, but that is also contributing to her not getting enough sleep at night. Objective: Vital Signs: Reviewed. HEENT: Unremarkable. Lungs: Bilateral good equal air entry with presence of rales noted in lower lung bowen unchanged fr om yesterday. Not using accessory muscles of respiration. Heart: Sounds normal. Abdomen: Soft. Bowel sounds normal. No guarding, rigidity, tenderness, distention. Extremities: Bilateral trace leg edema, overall much better than before. Laboratory Data: Sodium 131, potassium 3.6, chloride 91, bicarb 36, BUN 42, creatinine 1.29, glucose 358. Impression: 1.Congestive heart failure, acute, diastolic. 2.Coronary artery disease. 3.Atrial fibrillation. 4.Chronic anticoagulation therapy. 5.Hypertension. 6.Type 2 diabetes mellitus. Plan: Fingerstick blood sugar readings reviewed. We will go ahead and start the patient on long-act ing insulin starting tonight. Continue sliding scale insulin for diabetes control. We will continue Lovenox. The patient was scheduled to have cardiac cath today which was done sometime this afternoo n and after the cardiac cath procedure was done, about 2 to 3 hours after the procedure was done, parker arreguin from the microbiology laboratory manager had contacted me. The patient was complaining of shortness of breath, cough, an d according to nurse on the microbiology laboratory manager, that was not any different than how she was when she first arri wili to the microbiology laboratory manager. Her oxygen saturation was 100% on 2 L nasal cannula oxygen and at that time, he r Lasix 40 mg IV x1 dose was ordered. The patient did have stent placement today by crop duster as I was told by the cath nurse. I will see her tomorrow for followup. MECCA/MODL Voice ID: [id number] Report ID: [id number]
[2023-06-07] MEDS: ALPRAZOLAM 0.25 MG TABLET PO ONE (22:08)
--- NOTE | 2023-06-07 23:13 | OP ---
Date of Procedure: 06/07/2023 Surgeon: CARLEY BRIDGES Procedures Performed: 1.Selective coronary angiogram. 2.Left heart catheterization. 3.PCI of critical ostial and proximal left circumflex stenosis, which is the culprit for the DE. I used 2.5 x 28 mm Synergy drug-eluting stent. Indication: Cyu-IH-znaoritlx myocardial infarction. Access: Right radial artery 6-Wolof, closed with TR band. Complications: None. Bleeding: Less than 50 mL. Anesthesia: Total sedation time was 50 minutes. Used fentanyl, Versed. Description Of Procedure: After risks, benefits, and alternatives were explained, the patient agreed to procedure and signed informed consent. The patient was brought into cardiac catheterization [facility], prepped and draped in usual sterile fashion. Then, I accessed the right radial artery using pediatric micropuncture kit, placed a 6-Wolof slender sheath and took a 5-Wolof tiger 4 catheter in to the aortic root over J-wire and engaged the left main and the right coronary artery, took standard views, and the catheter was pushed over the wire into the LV, measured LVEDP. Pullback did not neptali rd any gradient. I removed the catheter and exchanged for a 6-Wolof XB 3.5 guide and engaged the le ft main, gave systemic heparin to assure ACT level above 250, gave 180 mg of Brilinta, and then I too k a short run-through wire into the left main and then left circumflex passing the stenosis and may p lace it distally and using a 2.5 balloon, I was able to re-dilate the lesion very well and then place d a 2.5 x 28 mm Synergy drug-eluting stent with excellent expansion. Final angiogram was satisfactor y and removed the wire and the guide and the sheath, placed TR band with good hemostasis. Findings: 1.Left main is large and normal. 2.LAD; proximal segment is with diffuse 30% stenosis, 30% to 40%, diagonal 1 branch is very small wi th proximal 50%, mid LAD is 40%, and then diagonal 2 branches moderate size with proximal 90% stenosi s, then the LAD after the diagonal 2 branch has focal 40% stenosis. Rest of the LAD appears to be wi th luminal irregularities. 3.Left circumflex is moderate-size vessel with ostial to proximal 99% stenosis and then diffuse 70% stenosis, status post successful PCI as above, which is a culprit for the DE. 4.RCA is large and dominant, proximal 30%, mid 20%, and then luminal irregularities throughout. 5.LVEDP is borderline at 12 mmHg. Conclusion: Severe ostial and proximal left circumflex stenosis, status post successful PCI as above . Recommendation: Aspirin, Brilinta, high-dose statin. SR/MODL Voice ID: [id number] Report ID: [id number]
[2023-06-08 06:40] LABS: Absolute Lymphocytes (CBC) 0.7 K/uL (0.7-4.9); Absolute Monocytes 0.5 K/uL (0.1-1.3); Absolute Neutrophil 8.4 K/uL (1.8-8.0); Basophils % 0.1 % (0-1.3); Eosinophils % 0.1 % (0-4.4); Hematocrit 29.8 % (36.0-45.0); Hemoglobin 9.3 g/dL (12.0-15.0); Lymphocytes % 7.6 % (15.3-44.8); MCHC 31.3 g/dL (32.0-36.0); MCV 73.3 fL (80-100); MPV 9.2 fL (7.6-11.3); Monocytes % 5.6 % (3.3-12.3); Neutrophils % 86.6 % (41.7-73.7); Platelets 287 thou/uL (152-406); RBC Red Blood Cell Count 4.06 M/uL (3.86-4.86); Red Cell Distribution Width 18.1 % (12.1-15.2)
[2023-06-08 07:04] LABS: Anion Gap 14.4 mEq/L (5.0-15.0); Magnesium 2.5 mg/dL (1.6-2.4); Potassium 3.4 mEq/L (3.5-5.1)
[2023-06-08] MEDS: INSULIN GLARGINE 100 UNIT/ML SQ ONE (08:50)
[2023-06-08] MEDS: ALPRAZOLAM 0.25 MG TABLET PO ONE (08:51)
[2023-06-08] MEDS: SERTRALINE HCL 50 MG TAB PO SCH (08:52)
--- NOTE | 2023-06-08 08:59 | ECHO ---
HEIGHT: 5 ft 3 in WEIGHT: 159 lb 0 oz DATE OF STUDY: 06/07/[address]: Gonzalo Frost MD 2-DIMENSIONAL: YES M.MODE: YES DOPPLER: YES COLOR FLOW: YES TDS: PORTABLE: YES DEFINITY: BUBBLE STUDY: DIAGNOSIS: CONGESTIVE HEART FAILURE CARDIAC HISTORY: CATHERIZATION: YES SURGERY: NO PROSTHETIC VALVE: NO PACEMAKER: YES MEASUREMENTS (cm) DIASTOLIC (NORMALS) SYSTOLIC (NORMALS) IVSd 1.0 (0.6-1.2) LA Diam 3.6 (1.9-4.0) LVEF 48% LVIDd 4.4 (3.5-5.7) LVIDs 3.3 (2.0-3.5) %FS 24% LVPWd 1.0 (0.6-1.2) Ao Diam 2.7 (2.0-3.7) 2 DIMENSIONAL ASSESSMENT: RIGHT ATRIUM: NORMAL LEFT ATRIUM: ENLARGED RIGHT VENTRICLE: NORMAL LEFT VENTRICLE: NORMAL TRICUSPID VALVE: MILD TRICUSPID REGURGITATION MITRAL VALVE: SEVERE MITRAL ANNULAR CALCIFICATION, MODERATE MITRAL REGURGITATION PULMONIC VALVE: NORMAL AORTIC VALVE: SEVERE CALCIFICATION PERICARDIAL EFFUSION: NONE AORTIC ROOT: NORMAL LEFT VENTRICULAR WALL MOTION: NORMAL DOPPLER/COLOR FLOW: DIASTOLIC DYSFUCNTION COMMENTS: 1. NORMAL LEFT VENTRICULAR SYSTOLIC FUNCTION, EJECTION FRACTION 55-60%, NORMAL WALL MOTION 2. DIASTOLIC DYSFUNCTION 3. SEVERE MITRAL ANNULAR CALCIFICATION, MODERATE MITRAL REGURGITATION 4. SEVERE AORTIC VALVE CALCIFICATION, NO SIGNIFICANT GRADIENT 5. MODERATE PULMONARY HYPERTENSION, RIGHT VENTRICULAR SYSTOLIC PRESSURE 45-50 mHg TECHNOLOGIST: RICHARD VACA
--- NOTE | 2023-06-08 09:14 | RAD REPORT ---
EXAM DESCRIPTION: RADChest Single View06/08/2023 8:31 am CLINICAL HISTORY: CHF COMPARISON: Chest Single View dated 06/05/2023; Chest Pa And Lat (2 Views) dated 12/04/2020; Chest Si ngle View dated 08/01/2019; Chest Pa And Lat (2 Views) dated 10/28/2017 TECHNIQUE: Portable AP view of the chest. FINDINGS: Elevation of right hemidiaphragm again seen. Bibasilar and central patchy opacities are st able. Trace left pleural effusion may have slightly improved. No pneumothorax. Left chest wall pacer unchanged in position. The cardiomediastinal contours are unremarkable. IMPRESSION: Stable findings as above, which may reflect central congestion or edema. Underlying pneu monia cannot be entirely excluded.
[2023-06-08 10:24] LABS: Anisocytosis 1+; Blood Morphology Comment NOTED (NOT SEEN); Platelet Estimate ADEQ; White Blood Cell Scan OK (OK)
[2023-06-08] MEDS ORDERED: D50W 25 GM/50 ML SYRINGE IV PRN (13:12)
[2023-06-08] MEDS ORDERED: GLUCAGON 1 MG/VIAL IM PRN (13:12)
[2023-06-08] MEDS: INSULIN REGULAR (HUMAN) 100 UNIT/ML IV ONE ×2 (13:22→15:11)
[2023-06-08] MEDS: FAMOTIDINE 20 MG/2 ML VIAL IV SCH (16:20)
[2023-06-08 19:13] LABS: Absolute Basophils 0.1 K/uL (0-0.5); Absolute Lymphocytes (CBC) 0.6 K/uL (0.7-4.9); Absolute Neutrophil 19.4 K/uL (1.8-8.0); Basophils % 0.6 % (0-1.3); Hematocrit 27.7 % (36.0-45.0); Hemoglobin 8.9 g/dL (12.0-15.0); Lymphocytes % 2.8 % (15.3-44.8); MCH 23.5 pg (27.0-35.0); MCHC 32.2 g/dL (32.0-36.0); MCV 72.8 fL (80-100); MPV 8.8 fL (7.6-11.3); Monocytes % 4.6 % (3.3-12.3); Platelets 354 thou/uL (152-406); Red Cell Distribution Width 18.3 % (12.1-15.2)
[2023-06-08 19:49] LABS: Anion Gap 21.5 mEq/L (5.0-15.0); Potassium 3.5 mEq/L (3.5-5.1)
--- NOTE | 2023-06-08 20:35 | PN ---
Date of Progress Note: 06/08/2023 Subjective: Seen by bedside. Doing well. No chest pain. Review of Systems: No chest pain, shortness of breath, orthopnea, or cough, but she has nausea and vomiting, and slightl y distended abdomen, and the sugars are very high. Objective: Vital Signs: Reviewed. Head and Neck: Pupils are equal, reactive to light. Intact eye movements. No JVD. No cervical lym phadenopathy. Neck is supple. Thyroid is not enlarged. Lungs: Clear to auscultation bilaterally. No rhonchi, wheezing, or crackles. No accessory muscle u se. Heart: Irregular. No extra sounds. Abdomen: Distended. Decreased bowel sounds. Neurologic: Alert, awake, oriented x3. No acute focal deficits appreciated. Investigations: Labs were reviewed. Assessment And Recommendations: 1.Uor-MI-sklsaeifj myocardial infarction, culprit was the ostial left circumflex which was 99% steno sis, status post successful PCI. Recommend continue Brilinta and aspirin and we can change Brilinta to Plavix since she has atrial fibrillation and she will need an anticoagulation down the road, so e can be loaded with Plavix 600 mg x1 and then 75 mg daily and baby aspirin 81 mg daily. 2.Dyslipidemia. Continue rosuvastatin. 3.Distended abdomen. Recommend abdominal x-ray flat and upright. 4.Diabetes, not well controlled, and Dr. Frost is following. SR/MODL Voice ID: [id number] Report ID: [id number]
[2023-06-08 20:44] LABS: Platelet Estimate ADEQ; White Blood Cell Scan OK (OK)
[2023-06-08 20:45] LABS: Anisocytosis 2+; Blood Morphology Comment NOTED (NOT SEEN); Polychromasia 1+
[2023-06-08] MEDS: PANTOPRAZOLE INJ 80 MG in NA CHLORIDE 0.9% 250 ML IV SCH (20:56)
[2023-06-08] MEDS: INSULIN GLARGINE 100 UNIT/ML SQ SCH (20:57)
[2023-06-08] MEDS: PIPER TAZO 2.25 GM in NA CHLORIDE 0.9% 50 ML IV SCH (20:58)
[2023-06-08] MEDS: NA CHLORIDE 0.9% 1,000 ML IV SCH (20:58)
--- NOTE | 2023-06-08 21:49 | RAD REPORT ---
EXAM DESCRIPTION: RAD - Abdomen 1 View (KUB) - 06/08/2023 9:26 pm CLINICAL HISTORY: Abdomen pain FINDINGS: The bowel gas pattern is unremarkable. No significant abnormal calcification is displayed
[2023-06-08] MEDS: PROMETHAZINE INJ 25 MG/ML AMP IV PRN (23:12)
--- NOTE | 2023-06-09 00:11 | PN ---
Date of Progress Note: 06/08/2023 Subjective: The patient was seen this morning for followup. She was lying in bed, not in distress l ast night, Xanax was ordered for her anxiety, but she refused to take it as nurse was telling me this morning. She did not sleep well last night, was on nasal cannula oxygen 2 L/minute, not using any a ccessory muscles of respiration, but was complaining of some nausea this morning when I saw her. No chest pain. No shortness of breath reported. Objective: Vital Signs: Reviewed. HEENT: Unremarkable. Lungs: Bilateral good equal air entry with presence of minimal basal rales. Heart: Sounds normal. Abdomen: Soft. Bowel sounds normal. No guarding, rigidity, tenderness, distention. Extremities: No leg edema. Laboratory Data: This morning, white count was 9.7, hemoglobin 9.3, platelets 287. Sodium 131, pota ssium 3.4, chloride 89, bicarb 31, BUN 54, creatinine 1.44, glucose 400. Impression: 1.Congestive heart failure, acute, diastolic. 2.Non-STEMI. 3.Chronic atrial fibrillation. 4.Chronic anticoagulation therapy. 5.Anemia. 6.Hypertension. 7.Diabetes mellitus, type 2, uncontrolled. 8.Acute kidney injury. Plan: After I saw the patient this morning, Zofran and Maalox were ordered because she was complaini ng of some nausea problem. The patient remains on famotidine and pantoprazole. She was getting Love nox 2 times a day, but in view of worsening renal function, Lovenox was reduced to once a day. After yesterday's cardiac cath, lamp tester and inspector placed stent and started her on Brilinta. We will continue s tatin therapy. Continue current diabetes management. This morning, insulin was ordered for her elev ated blood sugar. During the course of day today, her condition deteriorated and this afternoon her troponin was elevated as ordered by lamp tester and inspector, and Dr. Stovall as well as Dr. Shukla both evaluated her together from time today afternoon and I have discussed with Dr. Stovall this evening and he info rmed me that they have reviewed her cardiac cath films from yesterday and at this point, there is no further cardiac intervention needed and they will re-evaluate her tomorrow. Her troponin level was e levated today at 16,000 range, but lamp tester and inspector thinks that this is likely due to the intervention th at she had yesterday and they have suggested another troponin level to be done tomorrow and if it is going up, then they will consider intervention, provided her renal function remain stable or improves . During the course of day today, she really did not eat or drink much. Her blood sugar was as high as 600 range and initially we gave her 10 units of regular insulin IV. Subsequently, glucose was st ill around 500 range, so I gave her 5 units of regular insulin IV and she also received sliding scale insulin this afternoon. This evening, she will get long-acting insulin tonight along with the slidi ng scale because blood sugar is around 400 and we did repeat CBC and BMP because nurse had noted prachi k tarry stool and with that, Lovenox was discontinued after I communicated with the lamp tester and inspector and the patient will need to remain on Brilinta because of stent placement from yesterday. If necessary, we will consider giving her blood transfusion. I have discontinued oral Protonix, IV Pepcid, and st arted her on IV Protonix drip as of this evening. Chemistry shows BUN is 76, creatinine 2.76 this ev ening, and hemoglobin is 8.9. Her WBC count has gone up to 21,000 this evening. So, empiric antibio tic Zosyn was started as of this evening. IV fluid normal saline was started. The patient has not r eceived any Lasix today because of the blood pressure. So, I have discontinued Lasix completely and I have discontinued Lovenox also today. This morning when I saw her, I did start her on sertraline b ecause of her anxiety and depression problem as she appeared extremely depressed and anxious this mor twin. This evening, I did call the patient's son, team, and discussed all the details with him as well. We will repeat blood work tomorrow morning and I will see her tomorrow morning for followup . Overall, prognosis is guarded. MECCA/MODL Voice ID: [id number] Report ID: [id number]
[2023-06-09] MEDS ORDERED: PIPER TAZO 2.25 GM in NA CHLORIDE 0.9% 50 ML IV SCH (01:00)
[2023-06-09 06:09] LABS: Absolute Basophils 0.1 K/uL (0-0.5); Absolute Lymphocytes (CBC) 0.8 K/uL (0.7-4.9); Absolute Monocytes 1.2 K/uL (0.1-1.3); Absolute Neutrophil 19.8 K/uL (1.8-8.0); Basophils % 0.2 % (0-1.3); Hematocrit 26.6 % (36.0-45.0); Hemoglobin 8.6 g/dL (12.0-15.0); Lymphocytes % 3.6 % (15.3-44.8); MCH 23.5 pg (27.0-35.0); MCHC 32.3 g/dL (32.0-36.0); MCV 72.6 fL (80-100); MPV 8.7 fL (7.6-11.3); Monocytes % 5.6 % (3.3-12.3); Neutrophils % 90.6 % (41.7-73.7); Nucleated RBC Absolute Count 0.1 (0-0); Nucleated Red Blood Cells % 0.3 % (0-0); Platelets 343 thou/uL (152-406); RBC Red Blood Cell Count 3.66 M/uL (3.86-4.86); Red Cell Distribution Width 18.6 % (12.1-15.2)
[2023-06-09 06:44] LABS: Anion Gap 21.6 mEq/L (5.0-15.0); Magnesium 3.3 mg/dL (1.6-2.4); Potassium 3.6 mEq/L (3.5-5.1)
[2023-06-09 06:48] LABS: Specific Gravity 1.027 (1.005-1.030); Sqamous Epithelial <5 /HPF (None Seen); Urine Bacteria <20 /HPF (<20); Urine Bilirubin NEGATIVE (Negative); Urine Blood 1+ (Negative); Urine Clarity Extremely Turbid (Clear); Urine Color Yellow (Yellow); Urine Culture Reflex Order REFLEXED; Urine Glucose NEGATIVE (Negative); Urine Ketones NEGATIVE (Negative); Urine Microscopic Reflex YN ORDER UMIC; Urine Mucus Slight /HPF (None Seen); Urine Nitrite NEGATIVE (Negative); Urine Protein 1+ (Negative); Urine RBC 21-50 /HPF (None Seen); Urine Urobilinogen Normal (Normal)
[2023-06-09 06:49] LABS: Troponin High Sensitivity 27951.6 pg/mL (<58.9)
[2023-06-09] MEDS ORDERED: ENOXAPARIN 60 MG/0.6 ML SQ SCH (09:00)
[2023-06-09] MEDS: INSULIN GLARGINE 100 UNIT/ML SQ SCH ×2 (09:00→20:53)
[2023-06-09] MEDS: NA CHLORIDE 0.9% 1,000 ML IV SCH (10:01)
--- NOTE | 2023-06-09 11:52 | RAD REPORT ---
EXAM DESCRIPTION: RAD - Chest Single View - 06/09/2023 5:51 am CLINICAL HISTORY: Sob COMPARISON: Chest x-ray 06/05/2023 TECHNIQUE: Single AP view of the chest. FINDINGS: Left-sided cardiac conduction device. Lung volumes adequate. Cardiac silhouette is unchanged. No pneumothorax. No large pleural effusion. Unchanged left greater than right interstitial predominant airspace disease. No acute bony finding. Right upper quadrant abdominal surgical clips. IMPRESSION: No significant change in cardiopulmonary findings. Electronically signed by: Ira Aguirre MD 06/09/2023 06:41 AM CDT Due to temporary technical issues with the PACS/Fluency reporting system, reports are being signed by the in house radiologists without review as a courtesy to insure prompt reporting. The interpreting radiologist is fully responsible for the content of the report
[2023-06-09] MEDS: POTASSIUM CL SA 10 MEQ TAB PO ONE (13:45)
--- NOTE | 2023-06-09 19:30 | P.PN ---
Subjective Date of Service: 06/09/23 Subjective: No new changes, New changes (Patient is in distress, lot of anxiety and nausea, not eating well.) Review of Systems 10-point ROS is otherwise unremarkable Physical Examination - Vital Signs Temperature: 97.4 F Blood Pressure: 95/54 Pulse: 99 Respirations: 18 Pulse Ox (%): 95 - Physical Exam General: Alert, Oriented x3, Mild distress HEENT: Atraumatic Neck: Supple Respiratory: Clear to auscultation bilaterally Cardiovascular: No edema, Normal S1 S2 Gastrointestinal: Normal bowel sounds Assessment And Plan - Current Problems (Diagnosis) (1) Benign essential hypertension Current Visit: No Status: Acute Plan: BP is soft. lower Toprol XL to 25 mg daily and continue to monitor. (2) CAD (coronary artery disease) Current Visit: No Status: Acute Plan: recent PCI of LCX, patient has not been able to tolerate PO intake and vomitted couple of times, troponin trending up which might secondary to recent PCI, patient is not having active chest pain and no significant arrhythmia. continue ASA 81 mg daily Switch Brilinta to Plavix. give Plavix 300 mg po x1 in am then continue 75 MG daily as patient might be having GI bleeding and Brilinta is more potent than Plavix. continue protonix drip and follow Hgb. discussed in details with family.
--- NOTE | 2023-06-10 00:05 | PN ---
Date of Progress Note: 06/09/2023 Subjective: The patient was seen this morning for followup. No new complaints or problems reported by patient. She was lying in bed, not in any distress overnight. No new complaints or problems repo rted by nursing staff. The patient did not sleep well last night. This morning when I saw her, she was lying in bed on 2 L per day per minute nasal cannula oxygen, not using any accessory muscles of r espiration. She had 1 episode of vomiting last night, but she responded very well to Phenergan. Physical Examination: Vital Signs: Reviewed this morning, temperature 97.6, pulse 100, respiratory rate 20, blood pressure 105/57, oxygen saturation was 99% on 2 L nasal cannula oxygen. HEENT: Unremarkable. Lungs: Bilateral good equal air entry with presence of rales noted in both lung bases. Not using ac cessory muscles of respiration. Heart: Sounds normal. Abdomen: Soft. Bowel sounds normal. No guarding, rigidity, tenderness, distention. Extremities: No leg edema. Laboratory Data: White count 21.9, hemoglobin 8.6, and platelets 343. Sodium 131, potassium 3.6, ch loride 91, bicarb 22, BUN 92, creatinine 3.02, glucose 393. Troponin 27,951. Chest x-ray shows dens ity in both lungs, left more than right, unchanged from previous chest x-ray. Impression: 1.Bys-GT-mofvwsbbt myocardial infarction. 2.Pneumonia. 3.Acute respiratory failure with hypoxia. 4.Acute kidney injury. 5.Type 2 diabetes mellitus, uncontrolled. 6.Anemia, unspecified. 7.Hypertension. Plan: We will go ahead and continue current medications, IV Protonix. We have discontinued Lovenox as of yesterday because of concern about possibility of GI bleeding. Her stool was dark, tarry color ed stool, but unfortunately as I understand hospital does not perform stool guaiac testing, so we are not able to confirm any GI bleeding. Her hemoglobin has remained more or less stable. We will cont inue current antibiotic, Zosyn. Continue oxygen supplemental therapy and continue Brilinta. Her tro ponin level has gone up compared to yesterday. Unfortunately, she is not a good candidate for cardia c catheterization and risk is more than the benefit at this point of performing cardiac catheterizati on resulting in 2 renal failure requiring hemodialysis because of current acute kidney injury problem . IV fluid will be continued, but we will increase rate from 75 cc up to 100 cc/hour. We will repea t blood work tomorrow morning. Continue current nausea medication and IV Protonix drip. I did call patient's son this morning and details were discussed with him. MECCA/MODL Voice ID: [id number] Report ID: [id number]
[2023-06-10 06:04] LABS: Anion Gap 19.5 mEq/L (5.0-15.0); Magnesium 3.1 mg/dL (1.6-2.4); Potassium 3.5 mEq/L (3.5-5.1)
[2023-06-10 06:14] LABS: Absolute Lymphocytes (CBC) 0.5 K/uL (0.7-4.9); Absolute Neutrophil 16.9 K/uL (1.8-8.0); Basophils % 0.1 % (0-1.3); Hemoglobin 6.8 g/dL (12.0-15.0); Lymphocytes % 2.9 % (15.3-44.8); MCH 23.8 pg (27.0-35.0); MCHC 32.4 g/dL (32.0-36.0); MCV 73.5 fL (80-100); MPV 8.9 fL (7.6-11.3); Monocytes % 5.5 % (3.3-12.3); Nucleated RBC Absolute Count 0.1 (0-0); Nucleated Red Blood Cells % 0.4 % (0-0); Platelets 266 thou/uL (152-406); RBC Red Blood Cell Count 2.86 M/uL (3.86-4.86); Red Cell Distribution Width 18.5 % (12.1-15.2)
[2023-06-10 06:15] LABS: Neutrophils % 91.5 % (41.7-73.7)
[2023-06-10] MEDS ORDERED: NA CHLORIDE 0.9% 250 ML IV SCH (08:00)
[2023-06-10] MEDS: CLOPIDOGREL 75 MG TABLET PO ONE (08:55)
[2023-06-10] MEDS: POTASSIUM CL SA 10 MEQ TAB PO ONE (08:57)
[2023-06-10] MEDS: MIDODRINE HCL 5 MG TABLET PO SCH (15:46)
--- NOTE | 2023-06-10 16:31 | P.PN ---
Subjective Date of Service: 06/10/23 Subjective: New changes (Patient is more weak and Hgb is dropping) Review of Systems 10-point ROS is otherwise unremarkable Physical Examination - Vital Signs Temperature: 96.8 F Blood Pressure: 88/55 Pulse: 88 Respirations: 20 Pulse Ox (%): 97 - Physical Exam General: Alert, Oriented x3 HEENT: Atraumatic Neck: Supple Respiratory: Clear to auscultation bilaterally Cardiovascular: No edema, Normal S1 S2 Gastrointestinal: Hypoactive, Distended Assessment And Plan - Current Problems (Diagnosis) (1) Benign essential hypertension Current Visit: No Status: Acute Plan: BP is soft. Toprol XL to 25 mg daily and continue to monitor. (2) CAD (coronary artery disease) Current Visit: No Status: Acute Plan: recent PCI of LCX, patient has not been able to tolerate PO intake and vomitted couple of times, troponin trending up which might secondary to recent PCI, patient is not having active chest pain and no significant arrhythmia. continue ASA 81 mg daily Continue Plavix 75 mg daily discussed in details with family. (3) Anemia Current Visit: Yes Status: Acute Plan: Patient is having active drop in Hgb, most likely GI bleed with recent blood thinner and DAPT. Continue Protonix drip, would recommend getting GI team input.
--- NOTE | 2023-06-10 16:48 | EKG ---
Test Date: 2023-06-08 Test Time: 18:03:42 Quality Specialist: PHIL MEASUREMENT RESULTS: Intervals: Rate: 108 OR: QRSD: 182 QT: 488 QTc: 653 [place]: P: OR: QRS: -64 T: 107 INTERPRETIVE STATEMENTS: Electronic ventricular pacemaker Compared to ECG 06/07/2023 15:13:30 Sinus rhythm no longer present Atrial premature complex(es) no longer present Left-axis deviation no longer present Left ventricular hypertrophy no longer present Myocardial infarct finding no longer present Electronically Signed On 06-10-23 16:42:52 CDT by Magdy Shukla
--- NOTE | 2023-06-10 16:56 | EKG ---
Test Date: 2023-06-07 Test Time: 15:13:30 Scientific Software Developer: AHMET MEASUREMENT RESULTS: Intervals: Rate: 72 CO: 196 QRSD: 166 QT: 512 QTc: 560 Prospect: P: 18 CO: 196 QRS: -65 T: 72 INTERPRETIVE STATEMENTS: Sinus rhythm with premature atrial complexes Left axis deviation Left ventricular hypertrophy with QRS widening Lateral infarct, age undetermined Inferior infarct, age undetermined Abnormal ECG Compared to ECG 06/05/2023 00:24:50 Atrial premature complex(es) now present Left ventricular hypertrophy now present Myocardial infarct finding now present Left bundle-branch block no longer present Electronically Signed On 06-10-23 16:45:38 CDT by Magdy Shukla
--- NOTE | 2023-06-10 17:09 | EKG ---
Test Date: 2023-06-05 Test Time: 00:24:50 Railroad Commissioner: CORA MEASUREMENT RESULTS: Intervals: Rate: 97 FL: 196 QRSD: 170 QT: 404 QTc: 513 Jerome: P: 52 FL: 196 QRS: -63 T: 111 INTERPRETIVE STATEMENTS: Normal sinus rhythm Left axis deviation Left bundle branch block Abnormal ECG Compared to ECG 02/26/2022 18:11:16 Left-axis deviation now present Left bundle-branch block now present Ventricular-paced complex(es) or rhythm no longer present Atrial-sensed ventricular-paced complex(es) or rhythm no longer present Electronically Signed On 06-10-23 16:48:57 CDT by Magdy Shukla
[2023-06-10 17:53] LABS: Specific Gravity 1.023 (1.005-1.030); Sqamous Epithelial <5 /HPF (None Seen); Urine Bacteria <20 /HPF (<20); Urine Bilirubin NEGATIVE (Negative); Urine Blood Negative (Negative); Urine Clarity Extremely Turbid (Clear); Urine Color Yellow (Yellow); Urine Crystals Unidentified Few /HPF (None Seen); Urine Culture Reflex Order NOT NEEDED; Urine Glucose NEGATIVE (Negative); Urine Ketones NEGATIVE (Negative); Urine Microscopic Reflex YN ORDER UMIC; Urine Nitrite NEGATIVE (Negative); Urine Protein 1+ (Negative); Urine RBC <5 /HPF (None Seen); Urine Urobilinogen Normal (Normal); Urine WBC <5 /HPF (<5); Urine pH 5.5 (5.0-7.0)
[2023-06-10 17:58] LABS: UR PROTEIN 50.8 mg/dL (<11.9); Urine Protein/Creatinine Ratio 0.48 ratio (<0.15)
--- NOTE | 2023-06-10 19:00 | RAD REPORT ---
EXAM DESCRIPTION: Jose Alejandrot Single View06/10/2023 6:34 pm CLINICAL HISTORY: PICC placement COMPARISON: Chest Single View dated 06/09/2023; Abdomen 1 View (KUB) dated 06/08/2023; Chest Single Vi ew dated 06/08/2023; Chest Single View dated 06/05/2023 TECHNIQUE: Portable AP view of the chest. FINDINGS: Stable central interstitial prominence and hazy parahilar opacities. Right arm PICC has be en placed with catheter tip projecting over the distal SVC. Decreased inspiratory effort limits evalu ation. There may be a small left pleural effusion. No pneumothorax. Stable cardiomegaly. Mediastinal contours are otherwise unremarkable. Left chest wall pacer in place. IMPRESSION: Satisfactory positioning of right arm PICC. Stable central interstitial and alveolar opa cities, suggestive of pulmonary edema, possibly of cardiogenic origin.
--- NOTE | 2023-06-10 19:40 | CON ---
Date of Consultation: 06/10/2023 Reason For Consultation: Elevated BUN and creatinine, fluid management. History Of Present Illness: This is a pleasant 87-year-old female with significant past medical history of diabetes complicated with the neuropathy, no retinopathy since 1994, hypertension, hyperlipidemia, PAD, CAD complicated with congestive heart failure, ejection fraction of 48 as of this admission, AFib. Patient was in her regular state of health. Patient came to the hospital with anasarca, shortness of breath. Upon arrival to the hospital, patient was treated as CHF exacerbation. Patient was started on diuresis. Patient's kidney function gradually deteriorated. Patient had repeated low blood pressure down to the 90. Her hemoglobin dropped. Also planned for transfusion today. Upon arrival to the hospital, creatinine was 1.2, today creatinine 3.3, GFR of 13. Upon admission, GFR of 40. Patient known to have chronic kidney disease. Past Medical History: Include: 1. Diabetes since 1994, complicated with neuropathy, no retinopathy. 2. Chronic kidney disease. 3. CAD complicated with congestive heart failure, ejection fraction of 48% as of this admission with moderate pulmonary hypertension. 4. AFib. 5. Osteoarthritis, multiple sites. 6. Hyperlipidemia. 7. Urinary incontinence. 8. PAD. 9. Allergic rhinitis. Past Surgical History: Include: 1. Cataract. 2. Tonsillectomy. 3. ICD placement. 4. Cholecystectomy. 5. Appendectomy. 6. Hysterectomy. 7. Ankle surgery. Family History: Positive for pneumonia, hypertension, and congestive heart failure, CAD. Allergies: TO AMOXICILLIN, SULFA, ATORVASTATIN, AMBIEN, CODEINE, DEMEROL, AND METFORMIN. Social History: As per family denies smoking, denies drinking, denies drugs abuse. Review of Systems: Head and Neck: No red eye. No ear pain. GI: No nausea. No vomiting. : No polyuria. No dysuria. No hematuria. BRASS CLEANER: No vaginal discharge. Respiratory: Has shortness of breath. Has orthopnea. Cardiovascular: Has orthopnea. Has leg swelling. Endocrine: No polydipsia. Skin: No rash. Neuro: Generalized weakness and fatigue. Musculoskeletal: Generalized fatigue. Physical Examination: Vital Signs: When I saw the patient, her blood pressure 88/55, pulse of 88, afebrile. Chest: Crackles, bilateral. Heart: S1, S2. Systolic murmur. Abdomen: Soft, nontender. Extremities: +1 edema. Neurologic: Alert and oriented. No focality. Laboratory Data: The patient upon admission to the hospital; sodium 131, creatinine 1.2, GFR of 40. Today's lab data; sodium 133, potassium 3.5, bicarb 23, BUN 114, creatinine 3.3, calcium 7.4, magnesium is 3.1, WBC 18.5, hemoglobin 6.8, platelet 266. Urinalysis: Positive for UTI, leukoesterase 500, rbc 50, wbc 20. Serology negative. Chest x-ray: Cardiomegaly with congestion. INR 1.3. Current Medications: The patient on, include Tylenol, alprazolam, gabapentin 800 q.i.d., Zoloft, trazodone, gemfibrozil, metoprolol, rosuvastatin, pantoprazole, insulin, IV fluid. Assessment And Plan: 1. Acute kidney injury secondary to cardiorenal, nonoliguric. The patient had good urine output of 1100, still on the overvolume side. I am going to go ahead and start the patient on Lasix drip. Discontinue IV fluid. The patient is going to receive a blood transfusion today. We will resume diuresis and we will follow up. 2. I am going to send for workup given the presentation to rule out pulmonary renal syndrome. I am going to repeat UA. We will send for PC ratio and we will send for a full serology. 3. I am going to start the patient on midodrine to support the blood pressure for the time being. If her blood pressure continued to be low, patient may need to be transferred to ICU for blood pressure, to be placed on the pressor. 4. I had a long discussion with the patient in the presence of the son that if kidney function continued to decline, patient may need to be initiated on renal replacement therapy. Patient is still thinking about it. Again, this is acute kidney injury. We will follow up workup. 5. Urinary tract infection. Continue current antibiotic dose appropriate. 6. Shock, multifactorial, secondary to septic/cardiorenal complicated with acute kidney injury, poor perfusion, ATN, secondary to cardiorenal. Continue antibiotic. We will start with midodrine and we will follow up. We will start Lasix drip. 7. Respiratory failure secondary to overvolume and congestive heart failure, as above. We will diurese the patient. 8. Anemia. The patient planned for transfusion. We will follow up with the Primary. 9. Diabetes, as by Primary. 10. Pulmonary hypertension. Follow up with the Primary and Cardiology. 11. Hyponatremia, dilutional. We will start diuresis. 12. Hypokalemia. With the current kidney function, I am going to be cautious with the supplement and we will follow up. We will send for magnesium. Thank you, Dr. Frost, for allowing us to participate in the care of your patient. Time spent examining the patient [id number], reviewing data, lab and radiology, placing order, discussing the case with the patient, discussing the case with the felt hat steamer including hospitalist and nursing staff with the dialysis nurse more than 75 minutes OCTAVIO Voice ID: [id number] Report ID: [id number]
--- NOTE | 2023-06-10 20:08 | RAD REPORT ---
EXAM DESCRIPTION: US - Renal Ultrasound-Complete - 06/10/2023 5:29 pm CLINICAL HISTORY: LITTLE COMPARISON: Abdomen Pelvis Wo Contrast dated 05/04/2018 TECHNIQUE: Sonographic grayscale and color flow images of the kidneys and bladder were obtained. FINDINGS: Both kidneys are normal in size, shape, and echotexture. The right kidney measures 10.5 cm in long axis. No hydronephrosis, focal mass, or echogenic calculi. The left kidney measures 9.7 cm in long axis. No hydronephrosis, focal mass, or echogenic calculi. Exophytic left mid to lower pole for 4.0 x 3.3 x 3.3 cm anechoic cyst. The urinary bladder is decompressed limiting evaluation. IMPRESSION: Incidentally noted left renal 4.0 cm benign-appearing anechoic cyst. Urinary bladder is decompressed limiting evaluation. No other suspicious findings.
[2023-06-10] MEDS: ALBUMIN HUMAN 25% 12.5 GM, FUROSEMIDE 100 MG in NA CHLORIDE 0.9% 40 ML IV SCH (20:17)
[2023-06-10] MEDS: Mupirocin NASAL 2 APPL/1 GM TUBE NAS SCH (20:19)
[2023-06-11] MEDS: ALPRAZOLAM 0.25 MG TABLET PO PRN (02:02)
[2023-06-11] MEDS: NA CHLORIDE 0.9% 250 ML ONE (02:56)
--- NOTE | 2023-06-11 07:03 | PN ---
Date of Progress Note: 06/10/2023 Subjective: The patient was seen this morning for followup, she was lying in bed, not in any distres s. No new complaints or problems reported overnight. The patient continues to have problem with anx iety, did not sleep well last night. No nausea, vomiting overnight. She remains on 2-3 L nasal jenniffer ruby oxygen, maintaining adequate oxygenation, but continues to complain of shortness of breath as par t of adequate oxygen saturation. Objective: Vital Signs: Reviewed. HEENT: Unremarkable. Lungs: Clear to auscultation except basal rales, unchanged, not using accessory muscles of respirati on. Heart: Heart sounds normal. Abdomen: Soft, bowel sounds normal. No guarding, rigidity, tenderness, or distention. Extremities: No leg edema. Laboratory Data: WBC 18.5, hemoglobin 6.8, platelets 266. Sodium 133, potassium 3.5, chloride 94, b icarb 23, BUN 114, creatinine 3.33, glucose 296. Impression: 1.Acute blood loss anemia. 2.Acute kidney failure. 3.Vqx-OG-xhfbmxjzz myocardial infarction. 4.Coronary artery disease. 5.Pneumonia. 6.Acute respiratory failure with hypoxia. 7.Acute diastolic heart failure. Plan: We will go ahead and continue current antibiotic, which is Zosyn. We will give 2 units of PRB C blood transfusion and follow up on post transfusion hemoglobin. Continue to follow up with cardiol ogist and considering worsening renal function, we will go ahead and consult tool profiling machine set up operator. Fingersti ck blood sugar readings reviewed. We will continue current insulin therapy for diabetes. I did call patient's son and discussed details and provided updates to him. MECCA/MODL Voice ID: [id number] Report ID: [id number]
[2023-06-11 08:24] LABS: Percent Reticulocyte Count 3.86 % (0.4-2.05); RBC Red Blood Cell Count 4.06 M/uL (3.86-4.86)
[2023-06-11] MEDS: CLOPIDOGREL 75 MG TABLET PO SCH (08:25)
[2023-06-11 08:29] LABS: Absolute Basophils 0.1 K/uL (0-0.5); Absolute Lymphocytes (CBC) 0.5 K/uL (0.7-4.9); Absolute Monocytes 1.3 K/uL (0.1-1.3); Absolute Neutrophil 19.1 K/uL (1.8-8.0); Basophils % 0.3 % (0-1.3); Hematocrit 31.3 % (36.0-45.0); Hemoglobin 10.1 g/dL (12.0-15.0); Lymphocytes % 2.3 % (15.3-44.8); MCH 25.1 pg (27.0-35.0); MCHC 32.4 g/dL (32.0-36.0); MCV 77.6 fL (80-100); MPV 8.8 fL (7.6-11.3); Neutrophils % 91.4 % (41.7-73.7); Nucleated RBC Absolute Count 0.1 (0-0); Nucleated Red Blood Cells % 0.2 % (0-0); Platelets 245 thou/uL (152-406); RBC Red Blood Cell Count 4.03 M/uL (3.86-4.86); Red Cell Distribution Width 20.6 % (12.1-15.2)
[2023-06-11] MEDS: ACETAMINOPHEN 500 MG TAB PO PRN (09:11)
[2023-06-11 09:19] LABS: Albumin 3.1 g/dL (3.4-5.0); Albumin/Globulin Ratio 0.9 (1.1-1.8); Anion Gap 17.7 mEq/L (5.0-15.0); Bilirubin Total 2.1 mg/dL (0.2-1.0); Ferritin 47.9 ng/mL (8-388); Globulin 3.3 g/dL (2.3-3.5); Magnesium 3.1 mg/dL (1.6-2.4); Phosphorus 5.8 mg/dL (2.5-4.9); Potassium 3.7 mEq/L (3.5-5.1); Protein, Total 6.4 g/dL (6.4-8.2); Thyroid Stimulating Hormone 0.809 uIU/mL (0.358-3.740); Uric Acid 15.7 mg/dL (2.6-6.0)
[2023-06-11 09:24] LABS: Anisocytosis 2+; Blood Morphology Comment NOTED (NOT SEEN); Hypochromasia 2+; Platelet Estimate ADEQ; Polychromasia 2+; White Blood Cell Scan OK (OK)
[2023-06-11 11:59] LABS: Rheumatoid Factor NEG (NEG)
[2023-06-11] MEDS ORDERED: GLUCAGON 1 MG/VIAL IM PRN (13:30)
[2023-06-11] MEDS ORDERED: D50W 25 GM/50 ML SYRINGE IV PRN (13:30)
[2023-06-11] MEDS: INSULIN REGULAR (HUMAN) 100 UNIT/ML IV ONE (13:47)
[2023-06-11] MEDS: ALBUTEROL 2.5 MG/3 ML NEB SOL NEB SCH (14:42)
--- NOTE | 2023-06-11 17:23 | PN ---
Date of Progress Note: 06/11/2023 Subjective: Patient was seen this morning for followup. She was sleeping and she did wake up. She appears very weak. Objective: Vital Signs: Reviewed. HEENT: Unremarkable. Lungs: Bilateral good equal air entry, not in any respiratory distress. Presence of some rales in l ower lung bowen, unchanged from yesterday. Heart: Sounds normal. Abdomen: Soft. Bowel sounds normal. No guarding, rigidity, tenderness, distention. Extremities: Very trace leg edema in lower legs just above the ankle area. Laboratory Data: White count 21, hemoglobin 10.1, platelets 245. Sodium 133, potassium 3.7, chlorid e 97, bicarb 22, BUN 121, creatinine 2.88. Impression: 1.Pneumonia. 2.Acute respiratory failure with hypoxia. 3.Acute diastolic heart failure. 4.Coronary artery disease. 5.Yig-EH-idjfpoeif myocardial infarction, status post angioplasty with stent placement. 6.Acute kidney injury. 7.Upper gastrointestinal bleeding. 8.Anemia due to acute blood loss. 9.Type 2 diabetes mellitus, uncontrolled. 10.Hypertension. 11.Anxiety. 12.Depression. Plan: We will go ahead and continue to follow with cleaner and polisher. The patient received packed red ce ll blood transfusion and hemoglobin has improved. Her BUN is quite elevated, likely due to upper GI bleeding. Her creatinine has improved today compared to yesterday. We will continue to follow with cleaner and polisher. The patient is maintaining adequate oxygenation with oxygen saturation around 95% to 9 6% on 2 L nasal cannula oxygen, but in spite of that she keeps on complaining of feeling like as if s he has shortness of breath. This is her ongoing complaints for last few days and her nebulizer treat ment, which was p.r.n., I have changed it to 3 times a day today. She has significant generalized we akness and she should start working with physical therapy. We will continue to follow with cardiolog ist and the record producer has stopped Brilinta and has started her on clopidogrel. We will continue c urrent antibiotics and I will see her tomorrow for followup. MECCA/MODL Voice ID: [id number] Report ID: [id number]
[2023-06-11] MEDS: SOD FERRIC GLUC COMPLX/SUCROSE 125 MG in NA CHLORIDE 0.9% 100 ML IV SCH (17:37)
[2023-06-11] MEDS: GLUCERNA SHAKE 237 ML CAN PO SCH (23:03)
--- NOTE | 2023-06-12 03:54 | PN ---
Date of Progress Note: 06/11/2023 Subjective: No overnight events. Still weak. Creatinine improving. Continue diuretic. Renal dose medication. Physical Examination: Vital Signs: Temperature 96.9, pulse rate 95, blood pressure 122/57. General: Awake, alert. Looks chronically ill. Neck: Supple. No elevated JVD. Heart: Regular rate and rhythm. Normal S1, S2. Chest: Clear to auscultation bilaterally. No rales or wheezes. Abdomen: Soft, nontender. Extremities: Trace edema. Genitourinary: The patient has a Diaz. Laboratory Data: White count 21, hemoglobin 10, platelet 20,000. Sodium 133, potassium , BUN 110, creatinine 2.8. Assessment And Plan: 1.Acute kidney injury, possibly due to cardiorenal syndrome. The patient was disproportionate BUN t o creatinine. Continue diuretic. Monitor volume status. Renal dose medication. If BUN continued t o increase, then the patient might require renal replacement therapy. We will continue to monitor fo r now and need to discuss with the patient and the family if no improvement. The patient has multipl e comorbidities. I will discontinue gemfibrozil. 2.Pseudohyponatremia. Blood sugar control. 3.Iron-deficiency anemia. We will start the patient on IV iron. Monitor hemoglobin and transfuse i f hemoglobin less than 7. Follow up SPEP and UPEP. 4.Coronary artery disease, on aspirin and Plavix. 5.Diabetes mellitus. Continue on insulin. 6.Peripheral vascular disease, on pentoxifylline. We will discontinue gemfibrozil at this time. 7.Shortness of breath, likely multifactorial. The patient is currently off Lasix. 8.Elevated liver function tests, possibly due to shock liver. I will discontinue statin. 9.Coronary artery disease, status post recent cardiac catheterization, currently on aspirin, Plavix, and metoprolol. We will discontinue gemfibrozil and statin due to acute kidney injury and elevated liver function tests. Thank you for allowing me to participate in the patient's care. Total time spent 55 minutes, including documentation, reviewing labs, and discussing with the patient at the bedside. Overall guarded prognosis. AA/MODL Voice ID: [id number] Report ID: [id number]
[2023-06-12 06:05] LABS: Albumin 3.3 g/dL (3.4-5.0); Anion Gap 10.6 mEq/L (5.0-15.0); Magnesium 2.9 mg/dL (1.6-2.4); Phosphorus 4.2 mg/dL (2.5-4.9)
[2023-06-12] MEDS: ALBUMIN HUMAN 25% 50 ML IV ONE (06:09)
[2023-06-12] MEDS: NA CHLORIDE 0.9% 100 ML ONE (06:10)
[2023-06-12] MEDS: FUROSEMIDE 40 MG/4 ML VIAL ONE (06:10)
[2023-06-12 06:22] LABS: Potassium 2.6 mEq/L (3.5-5.1)
[2023-06-12] MEDS: KCL 20 MEQ/100 mL IVPB 20 MEQ/100 ML BAG IV SCH (07:42)
[2023-06-12] MEDS: INSULIN GLARGINE 100 UNIT/ML SQ SCH (08:51)
--- NOTE | 2023-06-12 10:00 | RAD REPORT ---
EXAM DESCRIPTION: RAD - Chest Single View - 06/12/2023 8:51 am CLINICAL HISTORY: F/U CHF Chest pain. COMPARISON: Chest Single View dated 06/10/2023; Chest Single View dated 06/09/2023; Abdomen 1 View ([facility]) dated 06/08/2023; Chest Single View dated 06/08/2023 FINDINGS: Portable technique limits examination quality. Moderate bilateral pulmonary opacities are present accentuated by under aeration of the lungs. The he art is moderately enlarged. Dual lead pacer device present. Right-sided PICC line has tip in the SVC. IMPRESSION: Underinflated lungs noted with no change in CHF pattern suspected.
[2023-06-12] MEDS: CALCITROL 0.25 MCG CAP PO SCH (12:40)
[2023-06-12] MEDS: ALBUMIN HUMAN 25% 12.5 GM, FUROSEMIDE 100 MG in NA CHLORIDE 0.9% 40 ML IV SCH (12:41)
--- NOTE | 2023-06-12 14:00 | PN ---
Date of Progress Note: 06/12/2023 Subjective: The patient was admitted to the hospital with cardiorenal syndrome. The patient was started on diuresis. Kidney function worsened. The patient was started on Lasix drip and received transfusion day before yesterday. The patient started picking good urine output. Kidney function started being improving. The patient is still complaining of shortness of breath. Physical Examination: Vital Signs: When I saw the patient, blood pressure 102/44, pulse of 71, afebrile. The patient had urine output of 2600. Chest: Crackles bilateral. Heart: S1, S2. Systolic murmur. Abdomen: Soft, nontender. Extremities: Plus edema. Neurologic: Alert. No focality. Laboratory Data: WBC 21, hemoglobin 10.1, platelets 245. Sodium 135; potassium 2.6; bicarb 28; BUN 104, trending down; creatinine 2.3, trending down. GFR up to 20. Blood sugar still elevated on the 300. Uric acid 7.5. Phosphorus 4.2, magnesium 2.9. Albumin 3.3. Corrected calcium 8.3. PTH 844. TSH is 0.8. PC ratio 0.4. No activity in the urine. Serology is still pending. Chest x-ray, cardiomegaly with congestion. Current Medications: The patient on is include Zosyn, aspirin, promethazine, midodrine 5 t.i.d., Lasix drip at 10 mg per hour, Plavix, IV iron, metoprolol 25 b.i.d., gabapentin 800 q.i.d., alprazolam, Zoloft, trazodone, mupirocin, pantoprazole, insulin, and levothyroxine. Assessment And Plan: 1. Acute kidney injury, minimal proteinuria, normal-sized kidney 10.5/9.7 secondary to cardiorenal, nonoliguric. No hyperkalemia. BUN is trending down. Kidney function improving. I do not see the need to initiate renal replacement therapy for the time being. There is severe disproportion in BUN, creatinine, mostly secondary to the GI bleed and does not show any uremic symptoms. I am going to go ahead and increase the Lasix to 20 mg to establish better volume control and we will continue to monitor the patient. 2. Again, given the current kidney function, I am going to go ahead and decrease her gabapentin to t.i.d. and we will continue to monitor the patient. 3. Hypokalemia. The patient on supplement. We will follow up. 4. Secondary hyperparathyroidism. I am going to start the patient on calcitriol and we will follow up the patient. 5. Anemia of iron deficiency, status post blood transfusion. Hemoglobin stabilized. I am going to go ahead and start the patient on IV iron and we will follow up the patient. 6. Congestive heart failure with exacerbation, systolic dysfunction. We will continue to try to establish better volume control increasing the Lasix. 7. Hyponatremia, recovered, resolved secondary to cardiorenal. 8. Shock secondary to cardiogenic shock complicated with acute kidney injury secondary to poor perfusion acute tubular necrosis, nonoliguric. I am going to continue midodrine. We will follow up with Cardiology and primary. 9. Respiratory failure secondary to overvolume and pneumonia. Continue current antibiotic. I will increase Lasix drip to establish better volume control. We will follow up. Time spent examining the patient [id number], reviewing data, lab and radiology, placing order, discussing the case with the patient, discussing the case with the front desk team member including hospitalist and nursing staff with the dialysis nurse more than 35 minutes OCTAVIO Voice ID: [id number] Report ID: [id number] RK
[2023-06-12] MEDS: SOD FERRIC GLUC COMPLX/SUCROSE 250 MG in NA CHLORIDE 0.9% 250 ML IV SCH (14:06)
[2023-06-12] MEDS: GABAPENTIN 400 MG CAP PO SCH (14:07)
--- NOTE | 2023-06-12 14:45 | PN ---
Date of Progress Note: 06/12/2023 Subjective: The patient was seen this morning for followup. Her son was present with her in the julio m. She denies any new complaints. The patient has ongoing complaints of feeling short of breath, bu t she is maintaining adequate oxygenation 95% to 96% on 2-3 L nasal cannula oxygen. She feels very w eak otherwise, but yesterday she did participate with physical therapy and at least did some minimal activity with the therapies at the bedside. Objective: Vital Signs: Reviewed. HEENT: Unremarkable. Lungs: Bilateral good equal air entry. Not using accessory muscles of respiration. Presence of ral es noted in both lower lung region unchanged from before. Heart: Sounds normal. Abdomen: Soft. Bowel sounds normal. No guarding, rigidity, tenderness, distention. Extremities: Bilateral trace leg edema involving lower half of both lower legs. Laboratory Data: Sodium 135, potassium 2.6, chloride 99, bicarb 28, BUN 104, creatinine 2.33, glucos e 314. Impression: 1.Acute respiratory failure with hypoxia. 2.Acute diastolic heart failure. 3.Pneumonia. 4.Generalized weakness. 5.Debility. 6.Acute kidney injury. 7.Hypokalemia. 8.Type 2 diabetes mellitus, uncontrolled. Plan: We will go ahead and continue to follow up with manager technical training as well as pediatrics teacher. Continu e current oxygen, nebulizer treatment, antibiotics and continue current diabetes management. The lobo layton was encouraged to continue to work with physical therapy, and her renal function has improved. So at this point, there is no need to have any discussion about diet. We will repeat blood work tomorrow. I will see her tomorrow for followup. MECCA/MODL Voice ID: [id number] Report ID: [id number]
[2023-06-12] MEDS: POTASSIUM 25 MEQ EFFERV TAB PO ONE (16:33)
[2023-06-13] MEDS: BENZONATATE 100 MG CAP PO PRN (02:22)
[2023-06-13] MEDS: POTASSIUM CL SA 10 MEQ TAB PO ONE ×3 (02:23→16:12)
[2023-06-13] MEDS: FUROSEMIDE 40 MG/4 ML VIAL ONE (03:30)
[2023-06-13] MEDS: NA CHLORIDE 0.9% 100 ML ONE (03:31)
[2023-06-13] MEDS: ALBUMIN HUMAN 25% 50 ML IV ONE (03:31)
[2023-06-13 05:28] LABS: Absolute Basophils 0.1 K/uL (0-0.5); Absolute Lymphocytes (CBC) 0.5 K/uL (0.7-4.9); Absolute Monocytes 1.4 K/uL (0.1-1.3); Absolute Neutrophil 13.8 K/uL (1.8-8.0); Basophils % 0.8 % (0-1.3); Eosinophils % 0.1 % (0-4.4); Hematocrit 29.9 % (36.0-45.0); Hemoglobin 9.7 g/dL (12.0-15.0); Lymphocytes % 3.3 % (15.3-44.8); MCHC 32.4 g/dL (32.0-36.0); MCV 77.1 fL (80-100); MPV 8.7 fL (7.6-11.3); Monocytes % 8.8 % (3.3-12.3); Nucleated RBC Absolute Count 0.5 (0-0); Nucleated Red Blood Cells % 2.8 % (0-0); Platelets 216 thou/uL (152-406); RBC Red Blood Cell Count 3.87 M/uL (3.86-4.86); Red Cell Distribution Width 20.6 % (12.1-15.2)
[2023-06-13 05:45] LABS: Albumin 3.5 g/dL (3.4-5.0); Anion Gap 8.2 mEq/L (5.0-15.0); Magnesium 2.9 mg/dL (1.6-2.4); Phosphorus 3.2 mg/dL (2.5-4.9); Potassium 3.2 mEq/L (3.5-5.1)
[2023-06-13 05:46] LABS: Anion Gap 9.2 mEq/L (5.0-15.0); Phosphorus 3.1 mg/dL (2.5-4.9); Potassium 3.2 mEq/L (3.5-5.1)
[2023-06-13 06:05] LABS: Band Neutrophils 1 % (0-1); Differential Total Cells Count 100; Lymphocytes 6 % (15-42); Monocytes 11 % (0-10); Nucleated Red Blood Cells 6 /100WBC; Platelet Estimate ADEQ; Segmented Neutrophils 82 % (40-80)
[2023-06-13 06:06] LABS: Anisocytosis 1+; Blood Morphology Comment NOTED (NOT SEEN)
[2023-06-13] MEDS: POTASSIUM 25 MEQ EFFERV TAB PO ONE (11:00)
--- NOTE | 2023-06-13 15:09 | PN ---
Date of Progress Note: 06/13/2023 Subjective: The patient was admitted with acute kidney injury secondary to cardiorenal. The patient was started on Lasix drip yesterday. We increased the Lasix to 20 mg per hour. However, the patient started having some negative balance. The patient still complaining of some shortness of breath, but better. Physical Examination: Vital Signs: Blood pressure 111/56, pulse of 84, afebrile. The patient had urine output of 2600. The patient negative of 1 L today. So far, she has almost 3400. Chest: Crackles bilateral. Heart: S1, S2. Systolic murmur. Abdomen: Soft, nontender. Extremities: Plus edema. Neurologic: Alert. No focality. Laboratory Data: Hemoglobin 9.7, WBC 15, sodium 138, potassium 3.2, bicarb 34, BUN 90, creatinine 1.9, GFR 24, calcium 8.2, phosphorus 3.1, magnesium 2.9. Current Medications: The patient is on include Lasix drip at 20 per hour, Zosyn 2.25 every 8, promethazine, midodrine 5 t.i.d. Plavix, metoprolol, Tylenol, gabapentin 800 t.i.d. was decreased yesterday, trazodone 50, Zoloft. Assessment And Plan: 1. Acute kidney injury secondary to cardiorenal, still on the over volume side. I am going to continue diuresis and we will monitor the patient closely. 2. Diabetes as by primary. 3. Pulmonary hypertension, stable. 4. Shortness of breath, respiratory failure secondary to pneumonia/over volume. We will optimize the fluid status. Continue antibiotic, dose appropriate. 5. Iron-deficiency anemia. The patient was started on IV iron. We will follow up response. 6. Hypokalemia. We will supplement. Time spent examining the patient [id number], reviewing data, lab and radiology, placing order, discussing the case with the patient, discussing the case with the trampoline team coach including hospitalist and nursing staff with the dialysis nurse more than 35 minutes OCTAVIO Voice ID: [id number] Report ID: [id number] RK
[2023-06-13 20:41] LABS: Complement C3 74 mg/dL (***)
--- NOTE | 2023-06-13 21:09 | PN ---
Date of Progress Note: 06/13/2023 Subjective: The patient was seen this morning for followup. She was lying in bed, not in distress, appearing very weak and complains of feeling short of breath. She is not using any accessory muscles of respiration, maintaining adequate oxygenation, on nasal cannula oxygen. Objective: Vital Signs: Reviewed. HEENT: Unremarkable. Lungs: Bilateral equal entry with presence of rales noted in lower lung bowen unchanged. Heart: Sounds normal. Abdomen: Soft. Bowel sounds normal. No guarding, rigidity, tenderness, distention. Extremities: Trace leg edema unchanged from yesterday. Laboratory Data: White count 15.8, hemoglobin 9.7, platelets 216. Sodium 138, potassium 3.2, chlori de 98, bicarb 34, BUN 90, creatinine 1.97, glucose 358. Impression: 1.Acute respiratory failure with hypoxia. 2.Pneumonia. 3.Acute diastolic heart failure. 4.Hypertension. 5.Type 2 diabetes mellitus, uncontrolled. 6.Coronary artery disease. 7.nul-TZ-xwazkewkl myocardial infarction. 8.Acute kidney injury. 9.Hypokalemia. 10.Anemia. Plan: We will go ahead and continue current antibiotic therapy. We will continue current diabetes m anagement with insulin. Continue to monitor fingerstick blood sugar readings. Intake, output record s reviewed. We will continue to follow with can piler. Renal function is improving. I did call the patient's son and discussed details with him and he informed me that the patient is giving up and she really does not want to keep ongoing anymore, so we did talk about possibility of hospice care a nd he would like for us to make arrangements for her to go to son's house with hospice care and jarred kaye I will request social service consultation to make these arrangements. Plan is to discharge her to go to son's home with hospice care sometime this coming week and options of different hospice agen cies in our local area discussed with son and he would like to go ahead with [facility]. MECCA/MODL Voice ID: [id number] Report ID: [id number]
[2023-06-14 06:14] LABS: Albumin 3.9 g/dL (3.4-5.0); Anion Gap 8.3 mEq/L (5.0-15.0); Magnesium 2.9 mg/dL (1.6-2.4); Phosphorus 3.1 mg/dL (2.5-4.9); Potassium 3.3 mEq/L (3.5-5.1)
--- NOTE | 2023-06-14 07:33 | RAD REPORT ---
EXAM DESCRIPTION: RAD - Chest Single View - 06/14/2023 5:16 am CLINICAL HISTORY: CHF, pneumonia Chest pain. COMPARISON: Chest Single View dated 06/12/2023; Chest Single View dated 06/10/2023; Chest Single View dated 06/09/2023; Abdomen 1 View (KUB) dated 06/08/2023 FINDINGS: Portable technique limits examination quality. Extensive bilateral pulmonary opacities show little overall change since 06/14/2023. The heart is mod erately enlarged. Multi lead pacer device is present. Right-sided PICC line has tip the SVC. IMPRESSION: Stable findings of mild to moderate CHF.
[2023-06-14] MEDS: POTASSIUM 25 MEQ EFFERV TAB PO ONE (09:08)
[2023-06-14 10:12] VITALS: O2SAT 94
[2023-06-14] MEDS: ALBUTEROL 2.5 MG/3 ML NEB SOL NEB SCH (13:22)
[2023-06-14 15:42] LABS: Anion Gap 8.7 mEq/L (5.0-15.0); Potassium 3.7 mEq/L (3.5-5.1)
--- NOTE | 2023-06-15 01:15 | PN ---
Date of Progress Note: 06/14/2023 Subjective: The patient was seen this morning for followup. She was lying in bed, sleeping. She di d not wake up to communicate with me and did not respond to any verbal or tactile stimulation. She w as lying in bed, tachypneic. Objective: Vital Signs: Reviewed. HEENT: Unremarkable. Lungs: Bilateral shallow, but equal air entry. Heart: Sounds normal. Abdomen: Soft. Bowel sounds normal. No guarding, rigidity, tenderness, distention. Extremities: Bilateral trace leg edema unchanged. Laboratory Data: Chest x-ray from today unchanged from prior x-ray with bilateral pulmonary opacitie s. Sodium 143, potassium 3.3, chloride 102, bicarb 36, BUN 89, creatinine 1.74, glucose 265. Impression: 1.Acute respiratory failure with hypoxia. 2.Pneumonia. 3.Acute diastolic heart failure. 4.Coronary artery disease. 5.Acute kidney injury. 6.Type 2 diabetes mellitus, uncontrolled. 7.Hypokalemia. Plan: 1.We will go ahead and continue current antibiotics. 2.Continue to follow with puller machine. 3.We will go ahead and continue current diabetes management. Continue replacement therap y. I did call patient's son this evening and discussed details with him. Social Service consultatio n was requested to make arrangements for hospice care as per my discussion with son and this evening son has informed me that he is meeting with hospice agency tomorrow and during the course of day toda y, nurse notified me that the patient was having trouble swallowing, so I have asked nursing staff to keep her n.p.o. The patient's son reports that today when he went to visit her, she opened her eyes , smiled at him, but did not talk to him and he is seeing decline in her condition on a day-to-day ba sis and agrees with the hospice care to try to keep her as comfortable as possible. I will see her t omorrow morning for followup and if we see her condition rapidly declining and if we need to consider inpatient hospice, then we will discuss that with the patient's son tomorrow as well. Otherwise, pl an will be to discharge her to go home with hospice care. MECCA/MODL Voice ID: [id number] Report ID: [id number]
--- NOTE | 2023-06-15 04:00 | PN ---
Date of Progress Note: 06/14/2023 Chief Complaint: Acute kidney injury, cardiorenal syndrome. History: The patient is IV Lasix. She completed IV Lasix drip. The patient was started on IV Lasix for severe cardiorenal syndrome and congestive heart failure. She is feeling better. Review of Systems: Denies chest pain, palpitations. Physical Examination: Chest: Crackles bilaterally. Heart: S1, S2. 2/6 systolic murmur in left lower sternal border. Abdomen: Soft, benign, nontender. Extremities: No clubbing, no cyanosis. Laboratory Data: Hemoglobin 9.7, WBC 16. Sodium 138, potassium 3.2, BUN 19, creatinine 1.9, phosphorus 3.1, magnesium 2.9. Impression And Plan: 1. Acute kidney injury secondary to cardiorenal syndrome. The patient has volume overload. Continue Lasix. Monitor electrolytes closely. 2. Diabetes mellitus with renal manifestation, continue insulin per primary team. 3. Pulmonary hypertension, re-evaluate. 4. Shortness of breath. Continue p.o. diuretic and low-sodium diet. 5. Continue antibiotics according to UA and urine culture. 6. Hypokalemia. Monitor potassium, renal panel, and magnesium. Continue supplement. ELZA/MODL Voice ID: [id number] Report ID: [id number] RK
[2023-06-15 06:47] LABS: Absolute Basophils 0.1 K/uL (0-0.5); Absolute Lymphocytes (CBC) 1.6 K/uL (0.7-4.9); Absolute Monocytes 2.2 K/uL (0.1-1.3); Absolute Neutrophil 18.1 K/uL (1.8-8.0); Basophils % 0.4 % (0-1.3); Eosinophils % 0.2 % (0-4.4); Hematocrit 33.2 % (36.0-45.0); Hemoglobin 10.3 g/dL (12.0-15.0); Lymphocytes % 7.4 % (15.3-44.8); MCH 24.9 pg (27.0-35.0); MCV 80.4 fL (80-100); MPV 9.2 fL (7.6-11.3); Nucleated RBC Absolute Count 0.5 (0-0); Nucleated Red Blood Cells % 2.2 % (0-0); Platelets 264 thou/uL (152-406); RBC Red Blood Cell Count 4.13 M/uL (3.86-4.86); Red Cell Distribution Width 21.1 % (12.1-15.2)
[2023-06-15 06:50] LABS: Albumin 3.8 g/dL (3.4-5.0); Anion Gap 10.7 mEq/L (5.0-15.0); Magnesium 2.9 mg/dL (1.6-2.4); Phosphorus 3.4 mg/dL (2.5-4.9); Potassium 3.7 mEq/L (3.5-5.1)
[2023-06-15 09:48] VITALS: TEMP 96.2
[2023-06-15] MEDS: KCL 20 MEQ/100 mL IVPB 20 MEQ/100 ML BAG IV SCH (09:55)
[2023-06-15 11:34] LABS: C-ANCA Anti-Proteinase 3 <1.0 AI (<1.0); P-ANCA Anti-Myeloperoxidase Ab <1.0 AI (<1.0)
[2023-06-15 15:15] LABS: Abnormal Protein Band 1 0.2 g/dL; Abnormal Protein Band 2 0.2 g/dL; Albumin, (SPE) 3.3 g/dL (3.8-4.8); Alpha-1-Globulins 0.4 g/dL (0.2-0.3); Alpha-2-Globulins 0.7 g/dL (0.5-0.9); Beta 1 Globulin 0.4 g/dL (0.4-0.6); Gamma Globulins 0.7 g/dL (0.8-1.7); INTERPRETATION REPORT; Total Protein 5.8 g/dL (6.1-8.1)
--- NOTE | 2023-06-15 17:39 | PN ---
Date of Progress Note: 06/15/2023 Subjective: The patient was admitted to the hospital with cardiorenal syndrome, anasarca. Patient had acute kidney injury. After starting the patient on diuresis, kidney function started being improving. Objective: Vital Signs: Blood pressure 111/56, pulse of 93, afebrile. The patient is receiving transfusion. Patient had good urine output of 3300, negative of 500. Chest: Crackles, bilateral. Heart: S1, S2. Regular. Systolic murmur. Abdomen: Soft, nontender. Extremities: Plus edema. Neurologic: Alert, sleepy. Laboratory Data: Hemoglobin 10.3, WBC 22.1. Sodium 145, potassium 3.7, bicarb 36, BUN 97, creatinine down to 1.9, calcium 9.3, phosphorus 3.2, magnesium 2.9. Current Medications: The patient on, it includes Zosyn, promethazine, midodrine 5 mg t.i.d., Lasix drip, IV iron, and metoprolol. Assessment And Plan: 1. Acute kidney injury secondary to cardiorenal syndrome. The patient continued to diurese very well. Continued to be on the overvolume side. I am going to continue diuresis. 2. Hypertension, currently low blood pressure. We will continue to use midodrine. 3. Congestive heart failure, advanced. Apparently, patient decided and family decided for hospice. We will move care to hospice. We will sign off. Currently, unless if they need further advice, and we will follow up. Time spent examining the patient [id number], reviewing data, lab and radiology, placing order, discussing the case with the patient, discussing the case with the steam hoist operator including hospitalist and nursing staff with the dialysis nurse more than 35 minutes OCTAVIO Voice ID: [id number] Report ID: [id number] RK
[2023-06-15 18:22] VITALS: BP 114/63
[2023-06-15 21:25] LABS: Anti-Double Strand DNA Antibod 3 IU/mL (<=4)
[2023-06-17 13:37] LABS: Anti-Nuclear Antibody Screen Negative (Negative)
--- NOTE | 2023-06-17 22:42 | DS ---
Date of Discharge: 06/15/2023 Disposition: The patient was discharged to go home with hospice care. Physical Examination: General: The patient was lying in bed, sleeping, easily arousable, and talked to me and after speaking a few words, she went back to sleep. Vital Signs: Reviewed. HEENT: Unremarkable. Lungs: Bilateral shallow air entry, not in any respiratory distress. Heart: Sounds normal. Abdomen: Soft. Bowel sounds normal. No guarding, rigidity, tenderness, distention. Extremities: Bilateral trace edema. Laboratory Data: Today, WBC 22.10, hemoglobin 10.3, platelets 264. Sodium 145, potassium 3.7, chloride 102, bicarb 36, BUN 97, creatinine 1.99, glucose 198. Upon admission, sodium 136, potassium 4.1, chloride 105, bicarb 23, BUN 18, creatinine 1.27. Her troponin level first set was 89.9, second set 3124.8, third set 966.8, fourth one was 16,067.8 and last one was 27,951.6. Her creatinine upon admission was 1.27. Lowest creatinine was 1.01 on 06/06/2023. Highest creatinine was 3.33 on 06/10/2023 and last creatinine was 1.99 on day of discharge. Hospital Course: This is an 87-year-old very pleasant female patient, who was admitted to the hospital after she came into emergency room with complaints of shortness of breath. Please see dictated H and P for more information. The patient was admitted to the hospital with acute diastolic congestive heart failure. Her cardiac enzymes were abnormal and with worsening of cardiac enzymes, we suspected her to have non-STEMI and director of extension work was consulted and Dr. Shukla took her to cardiac incinerator plant laborer and did coronary angiogram with stent placement. Her cardiac enzymes did go up after stent placement and director of extension work evaluated her again and did EKG, did not show any ST-elevation AR and they reviewed her angiogram and did not see any evidence of any dissection or any other concerning findings and did not recommend any further intervention except medical management. The patient had a very complicated course since that time. She did go into acute kidney failure and we consulted work station support specialist for that. Her renal function did improve to some extent. She received IV Lasix for her congestive heart failure and at some point, we had to discontinue that because of worsening of the kidney failure, but then subsequently IV Lasix with albumin was restarted. The patient had some evidence of black stool indicating upper GI bleeding and this was after she had cardiac cath. She was on Brilinta at that time and director of extension work recommended to stop Brilinta and start her on Plavix which was done and she was given IV Protonix for that. We were also concerned about pneumonia on top of congestive heart failure and she was given empiric antibiotic Zosyn which showed improvement in her WBC count, but subsequently her WBC count started going up when her condition started deteriorating as well. She had acute respiratory failure with hypoxia requiring oxygen replacement therapy. The patient's overall condition declined during this entire hospital stay. She was not able to do much in terms of physical therapy. Initially, our thought was to try to get her to inpatient rehab, but her insurance company denied and I even appealed and communicated with the insurance [employer] physician and I was not able to get approval for inpatient rehab, but [facility] Hudson was able to provide approval for [facility] facility placement, but unfortunately, her condition continued to decline since that time. With multiple acute medical problems with declining conditions, the patient's son informed me that he felt like the patient was giving up and we did discuss the possibility of hospice care and the patient's son was in agreement with that and he wanted to have the patient go to his house with hospice care, so Social Service was consulted to make arrangements for hospice care and once all the arrangements completed, she was discharged to go home with hospice care. Her overall prognosis is very poor. As of yesterday, she started having trouble swallowing, so we will keep her now n.p.o. and with that, we are expecting her condition to decline quite rapidly. All these details were discussed with the patient's son. Out of hospital DNR paperwork was signed today for hospice. Upon discharge from hospital, the patient will be admitted to hospice care and comfort care orders will be provided as per hospice. I did communicate with the patient's son today and on multiple occasions throughout this hospitalization to discuss details. Final Diagnoses: 1. Acute diastolic heart failure. 2. Acute respiratory failure with hypoxia. 3. Non-STEMI. 4. Coronary artery disease. 5. Acute kidney injury. 6. Pneumonia. 7. Hypertension. 8. Type 2 diabetes mellitus, uncontrolled. 9. Anemia, unspecified. 10. Hypokalemia. Total time spent 45 minutes. MECCA/MODL Voice ID: [id number] Report ID: [id number]
== END 2023-06-15 19:01 | disposition hospice, home (50) | DRG 853 ==
LOC: ER 00:16 → ERHOLD 01:37 → 4TH 08:27
PROVIDERS: ADMIT Internal Medicine; ATTEND Internal Medicine
PROC: 5A09457 Assistance with Respiratory Ventilation, 24-96 Consecutive Hours, Continuous Positive Airway Pressure (ICD-10-PCS; 2023-06-05)
PROC: 027034Z Dilation of Coronary Artery, One Artery with Drug-eluting Intraluminal Device, Percutaneous Approach (ICD-10-PCS; principal; 2023-06-07)
PROC: 4A023N7 Measurement of Cardiac Sampling and Pressure, Left Heart, Percutaneous Approach (ICD-10-PCS; 2023-06-07)
PROC: B2111ZZ Fluoroscopy of Multiple Coronary Arteries using Low Osmolar Contrast (ICD-10-PCS; 2023-06-07)
PROC: 30233N1 Transfusion of Nonautologous Red Blood Cells into Peripheral Vein, Percutaneous Approach (ICD-10-PCS; 2023-06-10)
PROC: 02HV33Z Insertion of Infusion Device into Superior Vena Cava, Percutaneous Approach (ICD-10-PCS; 2023-06-10)
DX: A41.9 Sepsis, unspecified organism (principal); I21.A1 Myocardial infarction type 2; J96.01 Acute respiratory failure with hypoxia; I50.31 Acute diastolic (congestive) heart failure; J18.9 Pneumonia, unspecified organism; N17.0 Acute kidney failure with tubular necrosis; R57.0 Cardiogenic shock; I13.0 Hypertensive heart and chronic kidney disease with heart failure and stage 1 through stage 4 chronic kidney disease, or unspecified chronic kidney disease; N17.9 Acute kidney failure, unspecified; E87.1 Hypo-osmolality and hyponatremia; D62 Acute posthemorrhagic anemia; K92.2 Gastrointestinal hemorrhage, unspecified; N25.81 Secondary hyperparathyroidism of renal origin; R65.20 Severe sepsis without septic shock; N18.31 Chronic kidney disease, stage 3a; E11.22 Type 2 diabetes mellitus with diabetic chronic kidney disease; E11.65 Type 2 diabetes mellitus with hyperglycemia; E11.51 Type 2 diabetes mellitus with diabetic peripheral angiopathy without gangrene; E11.42 Type 2 diabetes mellitus with diabetic polyneuropathy; D63.1 Anemia in chronic kidney disease; I48.0 Paroxysmal atrial fibrillation; E03.9 Hypothyroidism, unspecified; E87.6 Hypokalemia; F41.9 Anxiety disorder, unspecified; I27.20 Pulmonary hypertension, unspecified; D50.9 Iron deficiency anemia, unspecified; F32.A Depression, unspecified; E78.2 Mixed hyperlipidemia; I25.10 Atherosclerotic heart disease of native coronary artery without angina pectoris; M19.09 Primary osteoarthritis, other specified site; R79.89 Other specified abnormal findings of blood chemistry; Z66 Do not resuscitate; Z51.5 Encounter for palliative care; Z88.6 Allergy status to analgesic agent; Z88.5 Allergy status to narcotic agent; Z88.1 Allergy status to other antibiotic agents; Z88.8 Allergy status to other drugs, medicaments and biological substances; Z79.01 Long term (current) use of anticoagulants; Z90.49 Acquired absence of other specified parts of digestive tract; Z79.899 Other long term (current) drug therapy; Z90.710 Acquired absence of both cervix and uterus; Z95.810 Presence of automatic (implantable) cardiac defibrillator
CPT/HCPCS: 36415; 51702; 71045; 74018; 76770; 76937; 80048; 80053; 80061; 80069; 81001; 82550; 82570; 82607; 82728; 82947; 83520; 83540; 83735; 83880; 83970; 84100; 84132; 84156; 84165; 84443; 84466; 84484; 84550; 85025; 85044; 85347; 85610; 85730; 86021; 86038; 86160; 86225; 86430; 86803; 86850; 86900; 86901; 86920; 87077; 87086; 87088; 87186; 93005; 93306; 93454; 94640; 94660; 97110; 97116; 97161; 97530; 99152; 99153; 99285; C1725; C1893; C9113; C9600; J0461; J1644; J1650; J1815; J1940; J2001; J2250; J2405; J2543; J2550; J2916; J3010; J3475; J3480; J7030; J7040; J7050; J7613; P9016; P9047; Q9967